=== PATIENT | female | born 1955 | race Caucasian/White ===

== ENCOUNTER 2017-04-05 07:54 | Inpatient (IN) | payer BC ==
[2017-04-05] MEDS ORDERED: fentaNYL 25 MCG/HR Transdermal Patch TRDERM SCH (08:00)
[2017-04-05] MEDS ORDERED: Meropenem 500 MG SDV ONE (08:38)
[2017-04-05] MEDS: Dextrose 5%-Lactated Ringers 1,000 ML IV SCH ×2 (08:54→18:00)
[2017-04-05] MEDS ORDERED: ceFAZolin 2 GM in Premix Bag 1 BAG IV ONE (10:00)
[2017-04-05] MEDS ORDERED: Dexamethasone 4 MG/ML SDV ONE (10:27)
[2017-04-05] MEDS ORDERED: Ondansetron 4 MG/2 ML SDV ONE (10:27)
[2017-04-05] MEDS ORDERED: fentaNYL 250 MCG/5 ML SDV ONE (10:27)
[2017-04-05] MEDS ORDERED: Rocuronium 50 MG/5 ML Vial ONE (10:27)
[2017-04-05] MEDS ORDERED: Neostigmine Methylsulfate 1 MG/ML 5 ML Syringe ONE (10:27)
[2017-04-05] MEDS ORDERED: Propofol 200 MG/20 ML SDV ONE (10:27)
[2017-04-05] MEDS ORDERED: Succinylcholine/Normal Saline 200 MG/10 ML Syringe ONE (10:27)
[2017-04-05] MEDS ORDERED: Naloxone 0.4 MG/ML SDV IVPUSH PRN (13:23)
[2017-04-05] MEDS ORDERED: Morphine PF 150 MG/30 ML PCA Syringe IV PRN (13:23)
[2017-04-05] MEDS ORDERED: Linezolid 200 MG/100 ML Bag IV ONE (13:25)
[2017-04-05] MEDS ORDERED: Naloxone 0.4 MG/ML SDV IV PRN (13:29)
[2017-04-05] MEDS ORDERED: Ondansetron 4 MG/2 ML SDV IVPUSH PRN (16:20)
[2017-04-05] MEDS ORDERED: hydrOXYzine HCl 100 MG/2 ML SDV IM PRN (16:23)
[2017-04-05] MEDS ORDERED: hydrOXYzine HCl 25 MG Tab PO PRN (16:23)
[2017-04-05] MEDS ORDERED: Cyclobenzaprine 10 MG Tab PO PRN (16:24)
[2017-04-05] MEDS: ceFAZolin 2 GM in Sodium Chloride 0.9% 50 ML IV SCH (19:41)
[2017-04-05] MEDS: FENTANYL PATCH CHECK TOP SCH (21:23)
[2017-04-05] MEDS: sulfaSALAzine 500 MG Tab PO SCH (21:24)
[2017-04-06] MEDS ORDERED: Lactated Ringers 500 ML IV SCH ×2 (02:30→06:15)
[2017-04-06] MEDS: Dextrose 5%-Lactated Ringers 1,000 ML IV SCH ×4 (02:38→19:14)
[2017-04-06] MEDS: ceFAZolin 2 GM in Sodium Chloride 0.9% 50 ML IV SCH ×2 (04:18→12:00)
[2017-04-06] MEDS ORDERED: Scopolamine 1.5 MG Transdermal Patch TRDERM PRN (07:22)
[2017-04-06] MEDS ORDERED: Metoclopramide 10 MG/2 ML SDV IVPUSH ONE (08:07)
[2017-04-06] MEDS: Docusate Sodium 100 MG Cap PO SCH ×2 (10:48→21:01)
[2017-04-06] MEDS: Hydroxychloroquine 200 MG Tab PO SCH ×2 (10:48→21:02)
[2017-04-06] MEDS: sulfaSALAzine 500 MG Tab PO SCH ×2 (10:49→21:02)
[2017-04-06] MEDS: Folic Acid 1 MG Tab PO SCH (10:49)
[2017-04-06] MEDS: FENTANYL PATCH CHECK TOP SCH ×2 (11:33→21:02)
[2017-04-06] MEDS: Metoclopramide 10 MG/2 ML SDV IVPUSH SCH ×2 (14:50→21:01)
[2017-04-07] MEDS: Metoclopramide 10 MG/2 ML SDV IVPUSH SCH (02:17)
[2017-04-07] MEDS: Dextrose 5%-Lactated Ringers 1,000 ML IV SCH (04:17)
[2017-04-07] MEDS ORDERED: Acetaminophen/oxyCODONE 325-5 MG Tab PO PRN (08:03)
[2017-04-07] MEDS ORDERED: Metoclopramide 10 MG/2 ML SDV IVPUSH PRN (08:04)
[2017-04-07] MEDS: Folic Acid 1 MG Tab PO SCH (08:30)
[2017-04-07] MEDS: Docusate Sodium 100 MG Cap PO SCH ×2 (08:30→21:11)
[2017-04-07] MEDS: FENTANYL PATCH CHECK TOP SCH ×2 (08:31→21:12)
[2017-04-07] MEDS: sulfaSALAzine 500 MG Tab PO SCH ×2 (08:31→21:12)
[2017-04-07] MEDS: Hydroxychloroquine 200 MG Tab PO SCH ×2 (08:31→21:12)
--- NOTE | 2017-04-07 09:23 | PN ---
DATE OF SERVICE: 04/07/2017 SUBJECTIVE: Bianca is postop day #2. Her nausea has improved. Temp max was 100.8. Pain is controlled. REVIEW OF SYSTEMS: Remainder of review of systems negative for any pertinent positives and negatives. OBJECTIVE: GENERAL: Bianca Arroyo is a pleasant 61-year-old female. VITAL SIGNS: TPR 100.2, 75, 16, and blood pressure 131/63. HEENT: Negative. NECK: Supple. HEART: Regular rate and rhythm. LUNGS: Clear. ABDOMEN: Dressings dry and intact. Abdominal binder is on. EXTREMITIES: Without peripheral edema. ASSESSMENT: Open repair of recurrent incarcerated incisional hernia with mesh for recurrent incarcerated incisional hernia. PLAN: Clear liquid diet. Dressing off. May shower. Discontinue Alaniz catheter. Continue pressure dressing, rolled up Kerlix or rolled up washcloth over hernia site for 8 weeks. Discontinue [employer] and continuous pulse ox. Percocet 5/325 mg 1 to 2 every 4 hours p.r.n. pain and Reglan 10 mg q.6 hours, changed from scheduled to p.r.n. Good pulmonary toilet encouraged. We will evaluate p.r.n. or in a.m. Ketty Allison PA-C /[id number]
[2017-04-07] MEDS: Magnesium Sulfate/Water 2 GM in Premix Bag 1 BAG IV SCH ×2 (15:50→21:09)
[2017-04-07] MEDS ORDERED: Acetaminophen 325 MG Tab PO PRN (22:23)
[2017-04-08 07:32] VITALS: BP 151/80
--- NOTE | 2017-04-08 08:44 | PN ---
DATE OF SERVICE: 04/06/2017 The patient has been afebrile with stable vital signs. Pain control appears fairly good. Urine output has been on the low side, and it seems she came into the case fairly dry. We will continue the IV at high rate today and give her one additional bolus this morning. We will leave the Alaniz catheter in for today to monitor her urine output, and otherwise begin a full liquid diet, along with some Colace, and restart her usual oral medications. Franki Manzo MD /[id number]
--- NOTE | 2017-04-09 04:08 | DISCH ---
ADMISSION DIAGNOSES: Incarcerated incisional hernia and hypertension. DISCHARGE DIAGNOSIS: Open repair of recurrent incarcerated incisional hernia with mesh for recurrent incarcerated incisional hernia. Date of surgery 04/05/2017. HISTORY: Bianca Arroyo is a pleasant 61-year-old female with recurrent incarcerated incisional hernia. After preoperative evaluation and discussion of possible risks and possible complications, she wished to proceed with surgical procedure. HOSPITAL COURSE: Bianca had her surgery on 04/05/2017. She had no operative complications. On postop day #1, she was started on a clear liquid diet. Her Alaniz catheter remained in to monitor urine output. She was given some bowel stimulation. On postop day #2, her Alaniz catheter was discontinued. She was started on oral pain medication and she was able to be discharged on 04/08/2017. PHYSICAL EXAMINATION: GENERAL: Bianca Arroyo is a 61-year-old female. VITAL SIGNS: Height is 5 feet 4.9 inches. Weight is 194 pounds. TPR is 98.5, 73, 18, and blood pressure 151/80. She did have a temp max last evening of 101.9, but after using her incentive spirometer and Tylenol, she remained afebrile. HEENT: Negative. NECK: Supple. HEART: Regular rate and rhythm. LUNGS: Clear. ABDOMEN: Dressings dry and intact. Abdominal binder is on with a pressure dressing over right side of her hernia. EXTREMITIES: Without peripheral edema. DISPOSITION: Discharged to home. CONDITION: Stable and improving. FOLLOWUP APPOINTMENT: With Franki Manzo MD, on 04/14/2017 at 08:00 a.m. DISCHARGE MEDICATIONS: New prescriptions: 1. Percocet 5/325 mg 1 to 2 every 4 hours p.r.n. pain #50. 2. Colace 100 mg oral twice daily. She is to resume her home medications of Zyrtec 10 mg oral daily, hydroxychloroquine sulfate 200 mg oral twice daily, methotrexate 15 mg oral weekly, multivitamin 1 tablet daily, and sulfasalazine a 1000 mg oral twice daily. DIET AFTER DISCHARGE: Usual diet as tolerated. Drink 8 to 10 glasses a day. ACTIVITY: As tolerated. No lifting more than 10 pounds for 6 weeks. Use incentive spirometer 10 times every hour while awake for 2 weeks. DISCHARGE INSTRUCTIONS: Driving after discharge, do not drive while on pain medication. Shower/bathing, may shower. Keep site clean and dry. Wear abdominal binder with pressure dressing, a rolled up washcloth or Kerlix over the hernia site with abdominal binder over it to keep pressure on the hernia site. Use incentive spirometer 10 times every hour while awake for 2 weeks. Notify provider if any fever, nausea, or vomiting.
--- NOTE | 2017-04-13 08:35 | OR ---
DATE OF PROCEDURE: 04/05/2017 PREOPERATIVE DIAGNOSIS: Recurrent incisional hernia. POSTOPERATIVE DIAGNOSIS: Recurrent incarcerated incisional hernia. OPERATIVE PROCEDURE: Open repair of recurrent incarcerated incisional hernia with mesh ([id number]). ANESTHESIA: General. MILK DRIER: Ketty Allison PA-C. INDICATIONS FOR PROCEDURE: A 61-year-old presenting with a recurrent incisional hernia in the suprapubic area. The plan is to proceed with repair of this using a mesh technique. The potential risks including bleeding, infection, injury to underlying viscera, problems with mesh becoming infected or the hernia recurring once again were all reviewed, and the patient wishes to proceed. DETAILS OF PROCEDURE: The patient was taken to the operating room and placed in the supine position. After general endotracheal anesthesia was induced, a Alaniz catheter was inserted and the abdomen prepped and draped. The lower aspect of the previous lower midline incision was then reused and carried down through the skin and subcutaneous tissue. The area of the herniation was noted to have occurred as result of the mesh on the right side of the pelvis coming loose. As one entered that cavity, there was some fluid present. This was a serous fluid, was not grossly infected, but cultures were obtained to be certain of lack of any infection. There was a loop of small bowel caught on the anterior aspect of the still intact mesh. This was dissected free without any insignificant serosal disturbance and returned back into the peritoneal cavity. The hernia sac was then dissected free in all areas to help with subsequent fixation of the mesh. The present mesh was then mobilized upward, and the dissection then continued down toward the right side of the pelvis, removing some small-bowel adhesions from that area. The mesh was then replaced initially to the pubic bone with multiple titanium tacking screws and then also multiple 0 Prolene stitches, which were taken from the mesh through the pubic bone itself to maximize chances of this remaining intact. Laterally, several stab wounds have been made where some sutures had been placed into the mesh laterally, and the mesh was then pulled up to that area as the sutures were drawn up with a suture passer. This appeared to be satisfactorily occlude all areas laterally and provided good coverage away from the area of herniation. The underlying shelf of that portion of the mesh was also then reinforced with titanium tacking screws to the abdominal wall. At this point, the remaining hernia sac was removed and the abdomen irrigated with a meropenem-containing saline solution. Zyvox also added to the antibiotic mix. The midline fascia was approximated overlying this with each of the bites including a bite of the underlying mesh as well, to help fix it into the abdominal wall. The subcutaneous tissue was approximated with 2-0 Vicryl stitch and the skin then with michael. Pressure dressing was applied. The patient was taken to the recovery room in satisfactory condition. There were no evident complications. Physician assistant research scientist, Ketty Allison, played an essential role in assisting in this case, helping to position the patient, retract structures as needed, as well as suturing and cutting sutures when indicated. Her presence improved the patient's safety and decreased the operative time. Franki Manzo MD /[id number]
== END 2017-04-08 09:11 | disposition home or self-care (01) | DRG 227 ==
LOC: JP.SDS 07:54 → JP.SDSSCHI 07:54 → EDSTATUS 10:00 → JP.2SS 14:50
PROVIDERS: ADMIT Surgery; ATTEND Surgery
PROC: 0WUF0JZ Supplement Abdominal Wall with Synthetic Substitute, Open Approach (ICD-10-PCS; principal; 2017-04-05)
DX: K43.2 Incisional hernia without obstruction or gangrene (principal); I10 Essential (primary) hypertension; Z79.899 Other long term (current) drug therapy; Z88.8 Allergy status to other drugs, medicaments and biological substances; M06.9 Rheumatoid arthritis, unspecified; F17.200 Nicotine dependence, unspecified, uncomplicated; Z85.3 Personal history of malignant neoplasm of breast
CPT/HCPCS: 36415; 80053; 83735; 84100; 87070; 87075; 87205; 88302; 94762; A9270-GY; J0690; J1100; J2020; J2185; J2270; J2405; J2704; J2765; J3010; J3475; J7042; J7050

== ENCOUNTER 2019-05-18 16:11 | Inpatient (IN) | payer MEDICARE, OTHER ==
--- NOTE | 2019-05-18 16:53 | EDM.PDOC ---
<Fox Stroud - Last Filed: 05/19/19 09:21> ED HPI GENERAL MEDICAL PROBLEM - General Chief Complaint: Abdominal Pain Stated Complaint: STOMACH PAIN, HERNIA PAIN Time Seen by Provider: 05/18/19 16:53 - Related Data Allergies Allergy/AdvReac Type Severity Reaction Status Date / Time hydromorphone HCl AdvReac Nausea and Verified 05/18/19 16:32 [From Dilaudid] Vomiting Home Meds: Home Meds Hydroxychloroquine Sulfate 200 mg PO BID 03/08/15 [History] Multivitamin [Multiple Vitamins] 1 tab PO DAILY 03/08/15 [History] sulfaSALAzine [Sulfasalazine] 1,000 mg PO BID 03/08/15 [History] Methotrexate 15 mg PO WEEKLY 10/02/16 [History] Omeprazole 1 tab PO DAILY 05/18/19 [History] Course - Vital Signs Last Recorded V/S: Last Vital Signs Temp 36.6 C 05/19/19 16:53 Pulse 81 05/19/19 16:53 Resp 20 05/19/19 16:53 BP 148/56 H 05/19/19 16:53 Pulse Ox 100 05/19/19 16:53 - Orders/Labs/Meds Orders: Medication Orders Hydroxyzine HCl (Vistaril) 100 mg IM Q4H PRN PRN Reason: Pain Last Admin: 05/19/19 18:13 Dose: 100 mg Meropenem 500 mg/ Sodium (Chloride) 50 mls @ 100 mls/hr IV Q6H NEO Last Admin: 05/19/19 16:31 Dose: 100 mls/hr Dextrose/Lactated Ringer's (Dextrose 5%-Lactated Ringers) 1,000 mls @ 175 mls/ hr IV ASDIRECTED NEO Morphine Sulfate (Morphine Rectification Printer 150 Mg In 30 Ml) 0 mg IV ASDIRECTED PRN; Protocol PRN Reason: Pain Last Admin: 05/19/19 16:30 Dose: 150 mg Naloxone HCl (Narcan) 0.1 mg IV ASDIRECTED PRN PRN Reason: decreased respiratory rate Ondansetron HCl (Zofran) 4 mg IV Q4H PRN PRN Reason: Nausea/Vomiting Pantoprazole Sodium (Protonix Iv) 40 mg IV BEDTIME [facility] Labs: Laboratory Tests 05/18/19 05/18/19 05/18/19 Range/Units 16:52 17:13 17:13 WBC 9.6 (4.5-11.0) K/uL RBC 3.85 (3.30-5.50) M/uL Hgb 12.9 (12.0-15.0) g/dL Hct 38.2 (36.0-48.0) % MCV 99 H (80-98) fL MCH 34 H (27-31) pg MCHC 34 (32-36) % Plt Count 231 (150-400) K/uL Neut % (Auto) 79 H (36-66) % Lymph % (Auto) 12 L (24-44) % Sunflower % (Auto) 6 (2-6) % Eos % (Auto) 2 (2-4) % Baso % (Auto) 0 (0-1) % Sodium 138 L (140-148) mmol/L Potassium 3.7 (3.6-5.2) mmol/L Chloride 100 (100-108) mmol/L Carbon Dioxide 28 (21-32) mmol/L Anion Gap 13.7 (5.0-14.0) mmol/L BUN 13 (7-18) mg/dL Creatinine 0.6 (0.6-1.0) mg/dL Est Cr Clr Drug Dosing 84.11 mL/min Estimated GFR (MDRD) > 60 (>60) Glucose 123 H (74-106) mg/dL Calcium 9.5 D (8.5-10.1) mg/dL Total Bilirubin 0.5 (0.2-1.0) mg/dL AST 37 D (15-37) U/L ALT 39 (12-78) U/L Alkaline Phosphatase 56 (46-116) U/L C-Reactive Protein 2.41 H (0.0-0.3) mg/dL Total Protein 7.9 (6.4-8.2) g/dL Albumin 3.5 (3.4-5.0) g/dL Globulin 4.4 H (2.3-3.5) g/dL Albumin/Globulin Ratio 0.8 L (1.2-2.2) Lipase 60 L (73-393) U/L Urine Color (YELLOW) Urine Appearance (CLEAR) Urine pH (5.0-8.0) Ur Specific Walton (1.008-1.030) Urine Protein (NEGATIVE) mg/dL Urine Glucose (UA) (NEGATIVE) mg/dL Urine Ketones (NEGATIVE) mg/dL Urine Occult Blood (NEGATIVE) Urine Nitrite (NEGATIVE) Urine Bilirubin (NEGATIVE) Urine Urobilinogen (0.2-1.0) EU/dL Ur Leukocyte Esterase (NEGATIVE) Urine RBC (0-5) Urine WBC (0-5) Ur Epithelial Cells Amorphous Sediment Urine Bacteria Urine Mucus 05/18/19 Range/Units 18:22 WBC (4.5-11.0) K/uL RBC (3.30-5.50) M/uL Hgb (12.0-15.0) g/dL Hct (36.0-48.0) % MCV (80-98) fL MCH (27-31) pg MCHC (32-36) % Plt Count (150-400) K/uL Neut % (Auto) (36-66) % Lymph % (Auto) (24-44) % Sunflower % (Auto) (2-6) % Eos % (Auto) (2-4) % Baso % (Auto) (0-1) % Sodium (140-148) mmol/L Potassium (3.6-5.2) mmol/L Chloride (100-108) mmol/L Carbon Dioxide (21-32) mmol/L Anion Gap (5.0-14.0) mmol/L BUN (7-18) mg/dL Creatinine (0.6-1.0) mg/dL Est Cr Clr Drug Dosing mL/min Estimated GFR (MDRD) (>60) Glucose (74-106) mg/dL Calcium (8.5-10.1) mg/dL Total Bilirubin (0.2-1.0) mg/dL AST (15-37) U/L ALT (12-78) U/L Alkaline Phosphatase (46-116) U/L C-Reactive Protein (0.0-0.3) mg/dL Total Protein (6.4-8.2) g/dL Albumin (3.4-5.0) g/dL Globulin (2.3-3.5) g/dL Albumin/Globulin Ratio (1.2-2.2) Lipase (73-393) U/L Urine Color Yellow (YELLOW) Urine Appearance Clear (CLEAR) Urine pH 6.5 (5.0-8.0) Ur Specific [place] 1.010 (1.008-1.030) Urine Protein Negative (NEGATIVE) mg/dL Urine Glucose (UA) Negative (NEGATIVE) mg/dL Urine Ketones Negative (NEGATIVE) mg/dL Urine Occult Blood Negative (NEGATIVE) Urine Nitrite Negative (NEGATIVE) Urine Bilirubin Negative (NEGATIVE) Urine Urobilinogen 0.2 (0.2-1.0) EU/dL Ur Leukocyte Esterase Negative (NEGATIVE) Urine RBC Not seen (0-5) Urine WBC Not seen (0-5) Ur Epithelial Cells Few Amorphous Sediment Not seen Urine Bacteria Not seen Urine Mucus Not seen Meds: Medications Generic Name Dose Route Start Last Admin Trade Name Freq PRN Reason Stop Dose Admin Hydroxyzine HCl 100 mg 05/19/19 16:21 05/19/19 18:13 Vistaril IM 100 mg Q4H PRN Administration Pain Meropenem 500 mg/ Sodium 50 mls @ 100 mls/hr 05/19/19 17:00 05/19/19 16:31 Chloride IV 100 mls/hr Q6H NEO Administration Dextrose/Lactated Ringer's 1,000 mls @ 175 mls/hr 05/19/19 16:30 Dextrose 5%-Lactated Ringers IV ASDIRECTED NEO Morphine Sulfate 0 mg 05/19/19 07:12 05/19/19 16:30 Morphine Rectification Printer 150 Mg In 30 Ml IV 150 mg ASDIRECTED PRN Administration Pain Protocol Naloxone HCl 0.1 mg 05/19/19 07:12 Narcan IV ASDIRECTED PRN decreased respiratory rate Ondansetron HCl 4 mg 05/18/19 20:34 Zofran IV Q4H PRN Nausea/Vomiting Pantoprazole Sodium 40 mg 05/19/19 21:00 Protonix Iv IV BEDTIME NEO Discontinued Medications Generic Name Dose Route Start Last Admin Trade Name Freq PRN Reason Stop Dose Admin Albuterol 2.5 mg 05/18/19 20:34 Proventil Neb Soln NEB Q4H PRN Shortness Of Breath/wheezing Albuterol/Ipratropium 3 ml 05/18/19 20:34 Duoneb 3.0-0.5 Mg/3 Ml NEB QID PRN Shortness Of Breath/wheezing Ropivacaine 45 ml/ 0 ml 05/19/19 12:00 05/19/19 11:38 Dexamethasone 8 mg/ NERVRT 80 syringe Epinephrine HCl 0.4 mg/ Sodium ASDIRECTED NEO Administration Chloride 32.6 ml Dexamethasone Confirm 05/19/19 08:19 Dexamethasone Administered 05/19/19 08:20 Dose 4 mg .ROUTE .STK-MED ONE Fentanyl Confirm 05/19/19 09:11 Sublimaze Administered 05/19/19 09:12 Dose 250 mcg .ROUTE .STK-MED ONE Fentanyl 50 mcg 05/19/19 15:19 05/19/19 15:23 Sublimaze IVPUSH 05/19/19 15:20 50 mcg ONETIME ONE Administration Glycopyrrolate Confirm 05/19/19 08:19 Robinul Administered 05/19/19 08:20 Dose 1 mg .ROUTE .STK-MED ONE Hydromorphone HCl 0.5 mg 05/18/19 17:02 05/18/19 19:42 Dilaudid IVPUSH 05/18/19 17:03 Not Given ONETIME ONE Hydroxyzine HCl 100 mg 05/19/19 14:36 05/19/19 15:14 Vistaril IM 05/19/19 14:37 100 mg ONETIME ONE Administration Sodium Chloride 1,000 mls @ 999 mls/hr 05/18/19 17:00 05/18/19 17:22 Normal Saline IV 999 mls/hr ASDIRECTED NEO Administration Sodium Chloride 1,000 mls @ 999 mls/hr 05/18/19 17:45 05/18/19 18:05 Normal Saline IV 999 mls/hr ASDIRECTED NEO Administration Sodium Chloride 100 mls @ 3 mls/sec 05/18/19 17:45 05/18/19 17:59 Normal Saline IV 3.5 mls/sec ASDIRECTED NEO Administration Lactated Ringer's 1,000 mls @ 125 mls/hr 05/18/19 20:34 05/19/19 05:38 Ringers, Lactated IV 125 mls/hr ASDIRECTED NEO Administration Potassium Chloride 20 meq/ 112 mls @ 56 mls/hr 05/19/19 09:00 05/19/19 09:49 Lidocaine HCl 2 ml/ Sodium IV 05/19/19 10:59 56 mls/hr Chloride ONETIME ONE Administration Cefoxitin Sodium 2 gm/ Sodium 50 mls @ 100 mls/hr 05/19/19 12:00 05/19/19 16: 32 Chloride IV 05/19/19 12:29 Not Given ONCALL ONE Ketamine HCl 50 mg/ Sodium 50 mls @ 17.1 mls/hr 05/19/19 12:00 Chloride IV ASDIRECTED NEO 5 MCG/KG/MIN Linezolid Confirm 05/19/19 11:37 Zyvox Administered 05/19/19 11:38 Dose 300 mls @ as directed .ROUTE .STK-MED ONE Linezolid Confirm 05/19/19 13:31 Zyvox Administered 05/19/19 13:32 Dose 300 mls @ as directed .ROUTE .STK-MED ONE Iopamidol 132 ml 05/18/19 17:45 05/18/19 17:58 Isovue-300 (61%) IV 132 ml . DIRECTED NEO Administration Ketamine HCl 28 mg 05/19/19 12:00 Ketalar IV ASDIRECTED NEO Lidocaine HCl 10 ml 05/18/19 20:15 05/18/19 20:28 Xylocaine 2% Jelly MUCMEM 05/18/19 20:16 10 ml ONETIME ONE Administration Linezolid 1,200 mg 05/19/19 11:49 05/19/19 11:49 Zyvox IRR 05/19/19 11:50 1,200 mg .STK-MED ONE Administration Lorazepam 1 mg 05/18/19 20:34 05/19/19 00:32 Ativan IV 1 mg Q6H PRN Administration Nausea/Vomiting Meropenem Confirm 05/19/19 11:37 05/19/19 11:48 Merrem Administered 05/19/19 11:38 500 mg Dose Administration 500 mg .ROUTE .STK-MED ONE Meropenem Confirm 05/19/19 13:45 Merrem Administered 05/19/19 13:46 Dose 500 mg .ROUTE .STK-MED ONE Morphine Sulfate 2 mg 05/18/19 17:04 05/18/19 17:21 Morphine IVPUSH 05/18/19 17:05 2 mg ONETIME ONE Administration Morphine Sulfate 2 mg 05/18/19 20:34 Morphine IVPUSH Q2H PRN Pain (severe 7-10) Neostigmine Methylsulfate Confirm 05/19/19 08:19 Neostigmine Administered 05/19/19 08:20 Dose 5 mg .ROUTE .STK-MED ONE Ondansetron HCl 4 mg 05/18/19 17:01 05/18/19 17:21 Zofran IVPUSH 05/18/19 17:02 4 mg ONETIME ONE Administration Ondansetron HCl Confirm 05/19/19 08:19 Zofran Administered 05/19/19 08:20 Dose 4 mg .ROUTE .STK-MED ONE Pantoprazole Sodium 40 mg 05/18/19 20:34 05/18/19 21:09 Protonix Iv IV 40 mg DAILY NEO Administration Phenol 1 ml 05/19/19 00:25 Phenaseptic Liquid MUCMEM Q2H PRN Sore Throat Propofol Confirm 05/19/19 08:19 Diprivan 20 Ml Administered 05/19/19 08:20 Dose 200 mg .ROUTE .STK-MED ONE Rocuronium Rison Confirm 05/19/19 08:19 Zemuron Administered 05/19/19 08:20 Dose 50 mg .ROUTE .STK-MED ONE Sodium Chloride 10 ml 05/18/19 17:45 05/18/19 17:58 Saline Flush FLUSH 05/18/19 17:46 10 ml ONETIME ONE Administration Succinylcholine Chloride Confirm 05/19/19 08:19 Quelicin Administered 05/19/19 08:20 Dose 200 mg .ROUTE .STK-MED ONE - Re-Assessments/Exams Free Text/Narrative Re-Assessment/Exam: Dr. Glass with initial evaluation and physical, care turned over to myself pending CT results. Patient remained stable. CT scan showed a small bowel obstruction with possible small bowel tumor. This was discussed with Dr. Manzo, and he recommended admitting to the hospitalist service with an NG tube, pain control and fluids and he will have a surgical assessment on her in the morning. Departure - Departure Time of Disposition: 20:36 Disposition: Home, Self-Care 01 Clinical Impression: Small bowel obstruction - Discharge Information <Polly Glass - Last Filed: 05/19/19 19:10> ED HPI GENERAL MEDICAL PROBLEM - General Source of Information: Reports: Patient History Limitations: Reports: No Limitations - History of Present Illness INITIAL COMMENTS - FREE TEXT/NARRATIVE: pt arrived with pain in the epigastric area and in the rt lower abdoman. She has had some chronic pain but in the last 2-3 days she has been nauseated and she has vomited several time. The last 2 days she is keeping water down but not solid foods. Her stools are quite liquid. Onset: Gradual, Other ( last 2 days. She had hernia surgery about 2 years ago and she has had loose stools since that time. ) Duration: Day(s): Location: Reports: Abdomen, Other (pt is hjaving low back pain. ) Associated Symptoms: Reports: Loss of Appetite, Nausea/Vomiting Past Medical History HEENT History: Reports: Impaired Vision, Sinusitis Other HEENT History: wears glasses Cardiovascular History: Reports: Hypertension Gastrointestinal History: Reports: None Genitourinary History: Reports: None ANESTHESIOLOGIST AND CRITICAL CARE History: Reports: Musculoskeletal History: Reports: RA Other Musculoskeletal History: rheumatoid arthritis Endocrine/Metabolic History: Reports: Obesity/BMI 30+ Oncologic (Cancer) History: Reports: Breast Dermatologic History: Reports: Psoriasis - Infectious Disease History Infectious Disease History: Reports: Chicken Pox, Measles, Mumps, Shingles - Past Surgical History HEENT Surgical History: Reports: Tonsillectomy Cardiovascular Surgical History: Reports: None GI Surgical History: Reports: Cholecystectomy, Colonoscopy, EGD, Hernia, Abdominal Female Surgical History: Reports: Section, Hysterectomy, Mastectomy , Salpingo-Oophorectomy Endocrine Surgical History: Reports: None Musculoskeletal Surgical History: Reports: None Oncologic Surgical History: Reports: Mastectomy Other Oncologic Surgeries/Procedures: right mastectomy Dermatological Surgical History: Reports: None Social & Family History - Family History Family Medical History: Noncontributory - Tobacco Use Smoking Status *Q: Current Every Day Smoker Years of Tobacco use: 45 Packs/Tins Daily: 0.2 - Caffeine Use Caffeine Use: Reports: Coffee ED ROS GENERAL - Review of Systems Review Of Systems: See Below Constitutional: Reports: Decreased Appetite HEENT: Reports: No Symptoms Respiratory: Reports: No Symptoms Cardiovascular: Reports: No Symptoms Endocrine: Reports: No Symptoms GI/Abdominal: Reports: Abdominal Pain, Diarrhea, Decreased Appetite, Nausea, Vomiting : Reports: No Symptoms Musculoskeletal: Reports: No Symptoms Skin: Reports: No Symptoms ED EXAM, GI/ABD - Physical Exam Exam: See Below Text/Narrative:: pt arrived with pain in the epigastric area and in the rt lower abdoman. Exam Limited By: No Limitations General Appearance: Alert, Anxious, Moderate Distress, Other (pt has been vomiting at home. pupils are equal and reactive. ) Ears: Normal TMs Nose: Normal Inspection Throat/Mouth: Normal Inspection Head: Atraumatic Neck: Normal Inspection Respiratory/Chest: No Respiratory Distress Cardiovascular: Regular Rate, Rhythm GI/Abdominal Exam: Other (pt is tender in the epigastric area and in the rt lower abdoman,. She has had a graft taken from her abdoman for breast construction She has been nauseated and she has been vomiting. She has passed some loose stools. ) (Female) Exam: Deferred Rectal (Female) Exam: Deferred Back Exam: Normal Inspection Extremities: Normal Inspection Neurological: Alert, Oriented, Normal Cognition Psychiatric: Normal Affect Course - Orders/Labs/Meds Labs: Laboratory Tests 05/18/19 05/18/19 05/18/19 Range/Units 16:52 17:13 17:13 WBC 9.6 (4.5-11.0) K/uL RBC 3.85 (3.30-5.50) M/uL Hgb 12.9 (12.0-15.0) g/dL Hct 38.2 (36.0-48.0) % MCV 99 H (80-98) fL MCH 34 H (27-31) pg MCHC 34 (32-36) % Plt Count 231 (150-400) K/uL Neut % (Auto) 79 H (36-66) % Lymph % (Auto) 12 L (24-44) % Sunflower % (Auto) 6 (2-6) % Eos % (Auto) 2 (2-4) % Baso % (Auto) 0 (0-1) % Sodium 138 L (140-148) mmol/L Potassium 3.7 (3.6-5.2) mmol/L Chloride 100 (100-108) mmol/L Carbon Dioxide 28 (21-32) mmol/L Anion Gap 13.7 (5.0-14.0) mmol/L BUN 13 (7-18) mg/dL Creatinine 0.6 (0.6-1.0) mg/dL Est Cr Clr Drug Dosing 84.11 mL/min Estimated GFR (MDRD) > 60 (>60) Glucose 123 H (74-106) mg/dL Calcium 9.5 D (8.5-10.1) mg/dL Total Bilirubin 0.5 (0.2-1.0) mg/dL AST 37 D (15-37) U/L ALT 39 (12-78) U/L Alkaline Phosphatase 56 (46-116) U/L C-Reactive Protein 2.41 H (0.0-0.3) mg/dL Total Protein 7.9 (6.4-8.2) g/dL Albumin 3.5 (3.4-5.0) g/dL Globulin 4.4 H (2.3-3.5) g/dL Albumin/Globulin Ratio 0.8 L (1.2-2.2) Lipase 60 L (73-393) U/L Urine Color (YELLOW) Urine Appearance (CLEAR) Urine pH (5.0-8.0) Ur Specific [place] (1.008-1.030) Urine Protein (NEGATIVE) mg/dL Urine Glucose (UA) (NEGATIVE) mg/dL Urine Ketones (NEGATIVE) mg/dL Urine Occult Blood (NEGATIVE) Urine Nitrite (NEGATIVE) Urine Bilirubin (NEGATIVE) Urine Urobilinogen (0.2-1.0) EU/dL Ur Leukocyte Esterase (NEGATIVE) Urine RBC (0-5) Urine WBC (0-5) Ur Epithelial Cells Amorphous Sediment Urine Bacteria Urine Mucus 05/18/ Range/Units 18:22 WBC (4.5-11.0) K/uL RBC (3.30-5.50) M/uL Hgb (12.0-15.0) g/dL Hct (36.0-48.0) % MCV (80-98) fL MCH (27-31) pg MCHC (32-36) % Plt Count (150-400) K/uL Neut % (Auto) (36-66) % Lymph % (Auto) (24-44) % Sunflower % (Auto) (2-6) % Eos % (Auto) (2-4) % Baso % (Auto) (0-1) % Sodium (140-148) mmol/L Potassium (3.6-5.2) mmol/L Chloride (100-108) mmol/L Carbon Dioxide (21-32) mmol/L Anion Gap (5.0-14.0) mmol/L BUN (7-18) mg/dL Creatinine (0.6-1.0) mg/dL Est Cr Clr Drug Dosing mL/min Estimated GFR (MDRD) (>60) Glucose (74-106) mg/dL Calcium (8.5-10.1) mg/dL Total Bilirubin (0.2-1.0) mg/dL AST (15-37) U/L ALT (12-78) U/L Alkaline Phosphatase (46-116) U/L C-Reactive Protein (0.0-0.3) mg/dL Total Protein (6.4-8.2) g/dL Albumin (3.4-5.0) g/dL Globulin (2.3-3.5) g/dL Albumin/Globulin Ratio (1.2-2.2) Lipase (73-393) U/L Urine Color Yellow (YELLOW) Urine Appearance Clear (CLEAR) Urine pH 6.5 (5.0-8.0) Ur Specific [place] 1.010 (1.008-1.030) Urine Protein Negative (NEGATIVE) mg/dL Urine Glucose (UA) Negative (NEGATIVE) mg/dL Urine Ketones Negative (NEGATIVE) mg/dL Urine Occult Blood Negative (NEGATIVE) Urine Nitrite Negative (NEGATIVE) Urine Bilirubin Negative (NEGATIVE) Urine Urobilinogen 0.2 (0.2-1.0) EU/dL Ur Leukocyte Esterase Negative (NEGATIVE) Urine RBC Not seen (0-5) Urine WBC Not seen (0-5) Ur Epithelial Cells Few Amorphous Sediment Not seen Urine Bacteria Not seen Urine Mucus Not seen Meds: Medications Generic Name Dose Route Start Last Admin Trade Name Freq PRN Reason Stop Dose Admin Hydroxyzine HCl 100 mg 05/19/19 16:21 05/19/19 18:13 Vistaril IM 100 mg Q4H PRN Administration Pain Meropenem 500 mg/ Sodium 50 mls @ 100 mls/hr 05/19/19 17:00 05/19/19 16:31 Chloride IV 100 mls/hr Q6H NEO Administration Dextrose/Lactated Ringer's 1,000 mls @ 175 mls/hr 05/19/19 16:30 Dextrose 5%-Lactated Ringers IV ASDIRECTED NEO Morphine Sulfate 0 mg 05/19/19 07:12 05/19/19 16:30 Morphine Rectification Printer 150 Mg In 30 Ml IV 150 mg ASDIRECTED PRN Administration Pain Protocol Naloxone HCl 0.1 mg 05/19/19 07:12 Narcan IV ASDIRECTED PRN decreased respiratory rate Ondansetron HCl 4 mg 05/18/19 20:34 Zofran IV Q4H PRN Nausea/Vomiting Pantoprazole Sodium 40 mg 05/19/19 21:00 Protonix Iv IV BEDTIME NEO Discontinued Medications Generic Name Dose Route Start Last Admin Trade Name Freq PRN Reason Stop Dose Admin Albuterol 2.5 mg 05/18/19 20:34 Proventil Neb Soln NEB Q4H PRN Shortness Of Breath/wheezing Albuterol/Ipratropium 3 ml 05/18/19 20:34 Duoneb 3.0-0.5 Mg/3 Ml NEB QID PRN Shortness Of Breath/wheezing Ropivacaine 45 ml/ 0 ml 05/19/19 12:00 05/19/19 11:38 Dexamethasone 8 mg/ NERVRT 80 syringe Epinephrine HCl 0.4 mg/ Sodium ASDIRECTED NEO Administration Chloride 32.6 ml Dexamethasone Confirm 05/19/19 08:19 Dexamethasone Administered 05/19/19 08:20 Dose 4 mg .ROUTE .STK-MED ONE Fentanyl Confirm 05/19/19 09:11 Sublimaze Administered 05/19/19 09:12 Dose 250 mcg .ROUTE .STK-MED ONE Fentanyl 50 mcg 05/19/19 15:19 05/19/19 15:23 Sublimaze IVPUSH 05/19/19 15:20 50 mcg ONETIME ONE Administration Glycopyrrolate Confirm 05/19/19 08:19 Robinul Administered 05/19/19 08:20 Dose 1 mg .ROUTE .STK-MED ONE Hydromorphone HCl 0.5 mg 05/18/19 17:02 05/18/19 19:42 Dilaudid IVPUSH 05/18/19 17:03 Not Given ONETIME ONE Hydroxyzine HCl 100 mg 05/19/19 14:36 05/19/19 15:14 Vistaril IM 05/19/19 14:37 100 mg ONETIME ONE Administration Sodium Chloride 1,000 mls @ 999 mls/hr 05/18/19 17:00 05/18/19 17:22 Normal Saline IV 999 mls/hr ASDIRECTED NEO Administration Sodium Chloride 1,000 mls @ 999 mls/hr 05/18/19 17:45 05/18/19 18:05 Normal Saline IV 999 mls/hr ASDIRECTED NEO Administration Sodium Chloride 100 mls @ 3 mls/sec 05/18/19 17:45 05/18/19 17:59 Normal Saline IV 3.5 mls/sec ASDIRECTED NEO Administration Lactated Ringer's 1,000 mls @ 125 mls/hr 05/18/19 20:34 05/19/19 05:38 Ringers, Lactated IV 125 mls/hr ASDIRECTED NEO Administration Potassium Chloride 20 meq/ 112 mls @ 56 mls/hr 05/19/19 09:00 05/19/19 09:49 Lidocaine HCl 2 ml/ Sodium IV 05/19/19 10:59 56 mls/hr Chloride ONETIME ONE Administration Cefoxitin Sodium 2 gm/ Sodium 50 mls @ 100 mls/hr 05/19/19 12:00 05/19/19 16: 32 Chloride IV 05/19/19 12:29 Not Given ONCALL ONE Ketamine HCl 50 mg/ Sodium 50 mls @ 17.1 mls/hr 05/19/19 12:00 Chloride IV ASDIRECTED NEO 5 MCG/KG/MIN Linezolid Confirm 05/19/19 11:37 Zyvox Administered 05/19/19 11:38 Dose 300 mls @ as directed .ROUTE .STK-MED ONE Linezolid Confirm 05/19/19 13:31 Zyvox Administered 05/19/19 13:32 Dose 300 mls @ as directed .ROUTE .STK-MED ONE Iopamidol 132 ml 05/18/19 17:45 05/18/19 17:58 Isovue-300 (61%) IV 132 ml . DIRECTED NEO Administration Ketamine HCl 28 mg 05/19/19 12:00 Ketalar IV ASDIRECTED NEO Lidocaine HCl 10 ml 05/18/19 20:15 05/18/19 20:28 Xylocaine 2% Jelly MUCMEM 05/18/19 20:16 10 ml ONETIME ONE Administration Linezolid 1,200 mg 05/19/19 11:49 05/19/19 11:49 Zyvox IRR 05/19/19 11:50 1,200 mg .STK-MED ONE Administration Lorazepam 1 mg 05/18/19 20:34 05/19/19 00:32 Ativan IV 1 mg Q6H PRN Administration Nausea/Vomiting Meropenem Confirm 05/19/19 11:37 05/19/19 11:48 Merrem Administered 05/19/19 11:38 500 mg Dose Administration 500 mg .ROUTE .STK-MED ONE Meropenem Confirm 05/19/19 13:45 Merrem Administered 05/19/19 13:46 Dose 500 mg .ROUTE .STK-MED ONE Morphine Sulfate 2 mg 05/18/19 17:04 05/18/19 17:21 Morphine IVPUSH 05/18/19 17:05 2 mg ONETIME ONE Administration Morphine Sulfate 2 mg 05/18/19 20:34 Morphine IVPUSH Q2H PRN Pain (severe 7-10) Neostigmine Methylsulfate Confirm 05/19/19 08:19 Neostigmine Administered 05/19/19 08:20 Dose 5 mg .ROUTE .STK-MED ONE Ondansetron HCl 4 mg 05/18/19 17:01 05/18/19 17:21 Zofran IVPUSH 05/18/19 17:02 4 mg ONETIME ONE Administration Ondansetron HCl Confirm 05/19/19 08:19 Zofran Administered 05/19/19 08:20 Dose 4 mg .ROUTE .STK-MED ONE Pantoprazole Sodium 40 mg 05/18/19 20:34 05/18/19 21:09 Protonix Iv IV 40 mg DAILY NEO Administration Phenol 1 ml 05/19/19 00:25 Phenaseptic Liquid MUCMEM Q2H PRN Sore Throat Propofol Confirm 05/19/19 08:19 Diprivan 20 Ml Administered 05/19/19 08:20 Dose 200 mg .ROUTE .STK-MED ONE Rocuronium Rison Confirm 05/19/19 08:19 Zemuron Administered 05/19/19 08:20 Dose 50 mg .ROUTE .STK-MED ONE Sodium Chloride 10 ml 05/18/19 17:45 05/18/19 17:58 Saline Flush FLUSH 05/18/19 17:46 10 ml ONETIME ONE Administration Succinylcholine Chloride Confirm 05/19/19 08:19 Quelicin Administered 05/19/19 08:20 Dose 200 mg .ROUTE .STK-MED ONE
[2019-05-18] MEDS ORDERED: Sodium Chloride 0.9% 1,000 ML IV SCH ×2 (17:00→17:45)
[2019-05-18] MEDS ORDERED: Ondansetron 4 MG/2 ML SDV IVPUSH ONE (17:01)
[2019-05-18] MEDS ORDERED: HYDROmorphone 0.5 MG/0.5 ML Syringe IVPUSH ONE (17:02)
[2019-05-18] MEDS ORDERED: Morphine 2 MG/ML Syringe IVPUSH ONE (17:04)
[2019-05-18] MEDS ORDERED: Sodium Chloride 0.9% 10 ML Syringe FLUSH ONE (17:45)
[2019-05-18] MEDS ORDERED: Iopamidol 612 MG/ML 150 ML Bottle IV SCH (17:45)
[2019-05-18] MEDS ORDERED: Sodium Chloride 0.9% 100 ML IV SCH (17:45)
[2019-05-18] MEDS ORDERED: fentaNYL 100 MCG/2 ML SDV IM ONE (18:49)
--- NOTE | 2019-05-18 19:11 | CRLCT ---
Indication: Epigastric and right lower abdominal pain, history of hernia Technique: Contrast enhanced axial CT imaging through the abdomen and pelvis. Sagittal and coronal reconstructions are provided. 132 cc Isovue-300 contrast agent was administered intravenous. Comparison: CT abdomen pelvis with contrast 12/06/2017. Findings: There is a broad-based right lower quadrant ventral abdominal wall hernia containing some loops of small bowel. There is evidence of prior hernia repair. There are multiple distended loops of small bowel measuring up to 4.0 cm, highly concerning for obstruction. Transition point is seen at a 4.6 cm long segment demonstrating circumferential wall thickening up to 1.9 cm with shouldering, raising concern for underlying mass. This lies in the inferior aspect of the abdominal wall hernia. The distal small bowel is decompressed. There is no pneumatosis intestinalis. A small amount of free fluid is seen within the hernia sac. There is no free intraperitoneal air. The stomach and colon is unremarkable. A few prominent inguinal and pelvic lymph nodes bilaterally are not significantly changed since prior. There is no mesenteric lymphadenopathy. The included lung bases are clear. There is no significant abnormality of the liver, spleen, pancreas, or adrenal glands. There is normal enhancement of the portal venous system. The gallbladder is surgically absent. There is mild prominence of the common bile duct, likely secondary to cholecystectomy. There is normal renal parenchymal enhancement without suspicious lesions. A small renal cyst is noted on the left. There is no hydronephrosis. There is normal caliber of the abdominal aorta with scattered atherosclerotic disease. Multilevel degenerative changes are again seen in the lumbar spine. No suspicious osseous lesions are demonstrated. Impression: 1. Findings concerning for small bowel obstruction secondary to underlying small bowel mass. No pneumoperitoneum or intra-abdominal abscess. 2. Persistent right lower quadrant ventral abdominal wall hernia containing multiple small bowel loops, including the segment suspicious for mass. Findings were discussed with Dr. Stroud at 07:02pm Please note that all CT scans at this facility use dose modulation, iterative reconstruction, and/or weight-based dosing when appropriate to reduce radiation dose to as low as reasonably achievable. Dictated by Stephanie Hagan MD @ May 18 2019 7:09PM Signed by Dr. Stephanie Hagan @ May 18 2019 7:09PM
[2019-05-18] MEDS ORDERED: Lidocaine 2% Jelly 10 ML Urojet MUCMEM ONE (20:15)
--- NOTE | 2019-05-18 20:24 | PCM.HP.2 ---
H&P History of Present Illness - General Date of Service: 05/18/19 Admit Problem/Dx: Admission Diagnosis/Problem Admission Diagnosis/Problem Small bowel obstruction Source of Information: Patient, Family ( and close friend at bedside) History Limitations: Reports: No Limitations - History of Present Illness Initial Comments - Free Text/Narative: chief complaint: abdominal pain - small bowel bowel obstruction this is a 63 year old female presents to the ER for evaluation of abdominal for the past 3 years. reports on Wednesday had increased pain in right lower abdomen - radiates to the back. She reports has not been able to eat for the past two days , today could not even keep water down. having diarrhea stools. pain was so bad today caused her to sweat. Onset of Symptoms: Reports: Gradual Symptom Onset Date: 05/12/19 Duration of Symptoms: Reports: Day(s):, Getting Worse Location: Reports: Abdomen, Radiates to (low back) Quality: Reports: Same as Previous Episode Severity: Severe Improves with: Reports: None Worsens with: Reports: Eating, Movement Context: Reports: Other (hx of hernia repair x 2) Associated Symptoms: Reports: Loss of Appetite, Nausea/Vomiting - Related Data Allergies/Adverse Reactions: Allergies Allergy/AdvReac Type Severity Reaction Status Date / Time hydromorphone HCl AdvReac Nausea and Verified 05/18/19 16:32 [From Dilaudid] Vomiting Home Medications: Home Meds Hydroxychloroquine Sulfate 200 mg PO BID 03/08/15 [History] Multivitamin [Multiple Vitamins] 1 tab PO DAILY 03/08/15 [History] sulfaSALAzine [Sulfasalazine] 1,000 mg PO BID 03/08/15 [History] Methotrexate 15 mg PO WEEKLY 10/02/16 [History] Omeprazole 1 tab PO DAILY 05/18/19 [History] Past Medical History HEENT History: Reports: Impaired Vision, Sinusitis Other HEENT History: wears glasses Cardiovascular History: Reports: Hypertension Gastrointestinal History: Reports: None Genitourinary History: Reports: None 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: Musculoskeletal History: Reports: RA Other Musculoskeletal History: rheumatoid arthritis Endocrine/Metabolic History: Reports: Obesity/BMI 30+ Oncologic (Cancer) History: Reports: Breast Dermatologic History: Reports: Psoriasis - Infectious Disease History Infectious Disease History: Reports: Chicken Pox, Measles, Mumps, Shingles - Past Surgical History HEENT Surgical History: Reports: Tonsillectomy Cardiovascular Surgical History: Reports: None GI Surgical History: Reports: Cholecystectomy, Colonoscopy, EGD, Hernia, Abdominal Female Surgical History: Reports: Section, Hysterectomy, Mastectomy , Salpingo-Oophorectomy Endocrine Surgical History: Reports: None Musculoskeletal Surgical History: Reports: None Oncologic Surgical History: Reports: Mastectomy Other Oncologic Surgeries/Procedures: right mastectomy Dermatological Surgical History: Reports: None Social & Family History - Family History Family Medical History: Noncontributory - Tobacco Use Smoking Status *Q: Current Every Day Smoker Years of Tobacco use: 45 Packs/Tins Daily: 0.2 - Caffeine Use Caffeine Use: Reports: Coffee - Living Situation & Occupation Living situation: Reports: Occupation: Retired (lives with of 37 years in [place], [place]. She retired this year from her job of 37 years. has 3 children; 2 by and another Daughter they raised from the age of 5 years.) H&P Review of Systems - Review of Systems: Review Of Systems: See Below General: Reports: Chills, Weakness, Decreased Appetite HEENT: Reports: Glasses Pulmonary: Reports: No Symptoms Cardiovascular: Reports: No Symptoms Gastrointestinal: Reports: Abdominal Pain, Diarrhea, Decreased Appetite, Distension, Nausea, Vomiting Genitourinary: Reports: No Symptoms Musculoskeletal: Reports: Back Pain Skin: Reports: No Symptoms Psychiatric: Reports: No Symptoms Neurological: Reports: No Symptoms Hematologic/Lymphatic: Reports: No Symptoms Immunologic: Reports: No Symptoms Exam - Exam Exam: See Below - Vital Signs Vital Signs: Last Vital Signs Temp 36.4 C 05/18/19 16:39 Pulse 86 05/18/19 19:31 Resp 16 05/18/19 19:31 BP 193/95 H 05/18/19 19:31 Pulse Ox 96 05/18/19 19:31 Weight: 88 kg - Exam General: Alert, Oriented, Cooperative, Mild Distress HEENT: Conjunctiva Clear, EOMI, Hearing Intact, Glasses Neck: Supple, Trachea Midline Lungs: Clear to Auscultation, Normal Respiratory Effort Cardiovascular: Regular Rate, Regular Rhythm, Normal S1, Normal S2 GI/Abdominal Exam: Distended, Tender, Abnormal Bowel Sounds (Female) Exam: Deferred Rectal (Female) Exam: Deferred Back Exam: Normal Inspection, Full Range of Motion, Other (low back pain with palpation) Extremities: Normal Inspection, Normal Range of Motion, Non-Tender, No Pedal Edema, Normal Capillary Refill Skin: Warm, Dry, Intact Neurological: Strength Equal Bilateral, Normal Speech Neuro Extensive - Mental Status: Alert, Oriented x3, Normal Mood/Affect, Normal Cognition Neuro Extensive - Motor, Sensory, Reflexes: CN II-XII Intact, Normal Gait, Normal Reflexes Psychiatric: Alert, Normal Affect, Normal Mood - Patient Data Lab Results Last 24 hrs: Laboratory Results - last 24 hr 05/18/19 05/18/19 05/18/19 Range/Units 16:52 17:13 17:13 WBC 9.6 (4.5-11.0) K/uL RBC 3.85 (3.30-5.50) M/uL Hgb 12.9 (12.0-15.0) g/dL Hct 38.2 (36.0-48.0) % MCV 99 H (80-98) fL MCH 34 H (27-31) pg MCHC 34 (32-36) % Plt Count 231 (150-400) K/uL Neut % (Auto) 79 H (36-66) % Lymph % (Auto) 12 L (24-44) % Plumas % (Auto) 6 (2-6) % Eos % (Auto) 2 (2-4) % Baso % (Auto) 0 (0-1) % Sodium 138 L (140-148) mmol/L Potassium 3.7 (3.6-5.2) mmol/L Chloride 100 (100-108) mmol/L Carbon Dioxide 28 (21-32) mmol/L Anion Gap 13.7 (5.0-14.0) mmol/L BUN 13 (7-18) mg/dL Creatinine 0.6 (0.6-1.0) mg/dL Est Cr Clr Drug Dosing 84.11 mL/min Estimated GFR (MDRD) > 60 (>60) Glucose 123 H (74-106) mg/dL Calcium 9.5 D (8.5-10.1) mg/dL Total Bilirubin 0.5 (0.2-1.0) mg/dL AST 37 D (15-37) U/L ALT 39 (12-78) U/L Alkaline Phosphatase 56 (46-116) U/L C-Reactive Protein 2.41 H (0.0-0.3) mg/dL Total Protein 7.9 (6.4-8.2) g/dL Albumin 3.5 (3.4-5.0) g/dL Globulin 4.4 H (2.3-3.5) g/dL Albumin/Globulin Ratio 0.8 L (1.2-2.2) Lipase 60 L (73-393) U/L Urine Color (YELLOW) Urine Appearance (CLEAR) Urine pH (5.0-8.0) Ur Specific Thayer (1.008-1.030) Urine Protein (NEGATIVE) mg/dL Urine Glucose (UA) (NEGATIVE) mg/dL Urine Ketones (NEGATIVE) mg/dL Urine Occult Blood (NEGATIVE) Urine Nitrite (NEGATIVE) Urine Bilirubin (NEGATIVE) Urine Urobilinogen (0.2-1.0) EU/dL Ur Leukocyte Esterase (NEGATIVE) Urine RBC (0-5) Urine WBC (0-5) Ur Epithelial Cells Amorphous Sediment Urine Bacteria Urine Mucus 05/18/19 Range/Units 18:22 WBC (4.5-11.0) K/uL RBC (3.30-5.50) M/uL Hgb (12.0-15.0) g/dL Hct (36.0-48.0) % MCV (80-98) fL MCH (27-31) pg MCHC (32-36) % Plt Count (150-400) K/uL Neut % (Auto) (36-66) % Lymph % (Auto) (24-44) % Plumas % (Auto) (2-6) % Eos % (Auto) (2-4) % Baso % (Auto) (0-1) % Sodium (140-148) mmol/L Potassium (3.6-5.2) mmol/L Chloride (100-108) mmol/L Carbon Dioxide (21-32) mmol/L Anion Gap (5.0-14.0) mmol/L BUN (7-18) mg/dL Creatinine (0.6-1.0) mg/dL Est Cr Clr Drug Dosing mL/min Estimated GFR (MDRD) (>60) Glucose (74-106) mg/dL Calcium (8.5-10.1) mg/dL Total Bilirubin (0.2-1.0) mg/dL AST (15-37) U/L ALT (12-78) U/L Alkaline Phosphatase (46-116) U/L C-Reactive Protein (0.0-0.3) mg/dL Total Protein (6.4-8.2) g/dL Albumin (3.4-5.0) g/dL Globulin (2.3-3.5) g/dL Albumin/Globulin Ratio (1.2-2.2) Lipase (73-393) U/L Urine Color Yellow (YELLOW) Urine Appearance Clear (CLEAR) Urine pH 6.5 (5.0-8.0) Ur Specific Thayer 1.010 (1.008-1.030) Urine Protein Negative (NEGATIVE) mg/dL Urine Glucose (UA) Negative (NEGATIVE) mg/dL Urine Ketones Negative (NEGATIVE) mg/dL Urine Occult Blood Negative (NEGATIVE) Urine Nitrite Negative (NEGATIVE) Urine Bilirubin Negative (NEGATIVE) Urine Urobilinogen 0.2 (0.2-1.0) EU/dL Ur Leukocyte Esterase Negative (NEGATIVE) Urine RBC Not seen (0-5) Urine WBC Not seen (0-5) Ur Epithelial Cells Few Amorphous Sediment Not seen Urine Bacteria Not seen Urine Mucus Not seen Result Diagrams: 05/18/19 16:52 05/18/19 17:13 - Problem List (1) Small bowel obstruction SNOMED Code(s): 953695520 ICD Code: K56.609 - UNSP INTESTNL OBST, UNSP TO PARTIAL VERSUS COMPLETE OBST Status: Acute Priority: High Current Visit: Yes (2) Tobacco dependence SNOMED Code(s): 03293775 ICD Code: F17.200 - NICOTINE DEPENDENCE, UNSPECIFIED, UNCOMPLICATED Status : Acute Priority: Low Current Visit: Yes Problem List Initiated/Reviewed/Updated: Yes Orders Last 24hrs: Active Orders 24 hr Category Date Time Status Patient Status Manage Transfer [TRANSFER] Routine ADT 05/18/19 19:17 Active Sodium Chloride 0.9% [Normal Saline] 1,000 ml Med 05/18/19 17:00 Active IV ASDIRECTED Sodium Chloride 0.9% [Normal Saline] 1,000 ml Med 05/18/19 17:45 Active IV ASDIRECTED Sodium Chloride 0.9% [Normal Saline] 100 ml Med 05/18/19 17:45 Active IV ASDIRECTED Resuscitation Status Routine Resus Stat 05/18/19 19:19 Ordered Medication Orders Sodium Chloride (Normal Saline) 1,000 mls @ 999 mls/hr IV ASDIRECTED [facility] Last Admin: 05/18/19 17:22 Dose: 999 mls/hr Sodium Chloride (Normal Saline) 1,000 mls @ 999 mls/hr IV ASDIRECTED [facility] Last Admin: 05/18/19 18:05 Dose: 999 mls/hr Sodium Chloride (Normal Saline) 100 mls @ 3 mls/sec IV ASDIRECTED [facility] Last Admin: 05/18/19 17:59 Dose: 3.5 mls/sec Assessment/Plan Comment:: ASSESSMENT AND PLAN - chief complaint: abdominal pain - small bowel bowel obstruction This is a 63 year old female presents to the ER for evaluation of abdominal for the past 3 years. The had hernia repair 3 years ago and then one year later revised. She states abdomen has been painful ever since. Reports on Wednesday had increased pain in right lower abdomen - radiates to the back. She reports has not been able to eat for the past two days, today could not even keep water down. having diarrhea stools. pain was so bad today caused her to sweat. In ER had labs and CT of abdomen-pelvis, which shows small bowel obstruction with concerning abdominal mass. Consult to Dr. Franki Manzo by ER Medical Doctor, advised admission, NPO, Pain control, NG tube, he will evaluate in the am for possible surgical intervention. Small bowel obstruction - abdominal pain for 2 days with nausea, vomiting and abdominal pain. CT scan shows small bowel obstruction secondary to underlying small bowel mass. no pneumoperitoneum or intra-abdominal abscess. -IV fluids LR at 125ml/hr -NPO -Pain control Morphine Sulphate 2mg IV every 2 hours prn pain -NG tube placement with low intermittent suction -Surgical consultation in am, Dr. Franki Manzo consulted Tobacco -decline patch or gum Maintenance issues - - DVT prophylaxis - SCD - GI prophylaxis - IV PPI - Nutrition - nothing by mouth - Alaniz catheter - Not indicated at this time CODE STATUS - full code Admission justification - This patient will be admitted for inpatient services and is medically appropriate meeting medical necessity for inpatient admission as outlined in my documentation. I reasonably expect the patient will require inpatient services that span a period time over 2 midnights. I reasonably expect this patient to be discharged or transferred within 96 hours [facility]. Disposition - anticipate discharge home Primary care physician - Dr. Caraballo Attending - Dr. Franki Manzo Hospitalist - Dr. Simons - Mortality Measure Prognosis:: good - Mortality Measure Prognosis:: Good
[2019-05-18] MEDS ORDERED: Albuterol/Ipratropium 3.0-0.5 MG/3 ML Neb Soln NEB PRN (20:34)
[2019-05-18] MEDS ORDERED: Ondansetron 4 MG/2 ML SDV IV PRN (20:34)
[2019-05-18] MEDS ORDERED: LORazepam 2 MG/ML SDV IV PRN (20:34)
[2019-05-18] MEDS ORDERED: Morphine 2 MG/ML Syringe IVPUSH PRN (20:34)
[2019-05-18] MEDS ORDERED: Pantoprazole 40 MG Vial IV SCH (20:34)
[2019-05-18] MEDS ORDERED: Albuterol 0.083% 2.5 MG/3 ML Neb Soln NEB PRN (20:34)
[2019-05-18] MEDS: Lactated Ringers 1,000 ML IV SCH (21:08)
[2019-05-19] MEDS ORDERED: Phenol/Sodium Phenolate Spray 180 ML Bottle MUCMEM PRN (00:25)
[2019-05-19] MEDS: Lactated Ringers 1,000 ML IV SCH (05:38)
[2019-05-19] MEDS ORDERED: Potassium Chloride 100 ML IV ONE (06:43)
[2019-05-19] MEDS ORDERED: Morphine PF 150 MG/30 ML PCA Syringe IV PRN (07:12)
[2019-05-19] MEDS ORDERED: Naloxone 0.4 MG/ML SDV IV PRN (07:12)
[2019-05-19] MEDS ORDERED: Ketamine 500 MG/5 ML MDV IV SCH ×3 (07:45→12:00)
[2019-05-19] MEDS ORDERED: Succinylcholine 200 MG/10 ML MDV ONE (08:19)
[2019-05-19] MEDS ORDERED: Rocuronium 50 MG/5 ML Vial ONE (08:19)
[2019-05-19] MEDS ORDERED: Propofol 200 MG/20 ML SDV ONE (08:19)
[2019-05-19] MEDS ORDERED: Glycopyrrolate 0.2 MG/ML 5 ML MDV ONE (08:19)
[2019-05-19] MEDS ORDERED: Neostigmine Methylsulfate 1 MG/ML 5 ML Syringe ONE (08:19)
[2019-05-19] MEDS ORDERED: Dexamethasone 4 MG/ML SDV ONE (08:19)
[2019-05-19] MEDS ORDERED: Ondansetron 4 MG/2 ML SDV ONE (08:19)
--- NOTE | 2019-05-19 08:30 | CONS ---
DATE OF SERVICE: 05/19/2019 REFERRING PHYSICIAN: CONSULTING PHYSICIAN: Ketty Allison PA-C REASON FOR CONSULTATION: Bianca was asked to have a surgical consultation for partial small bowel obstruction and questionable mass in the right lower quadrant and an incisional hernia. HISTORY OF PRESENT ILLNESS: Bianca Arroyo is a 63-year-old female who states that she has had this abdominal pain for approximately 2 to 3 years after her last hernia surgery, but within the last 2 to 3 days, she started with nausea, vomiting, unable to eat or drink anything and has had watery stools. Pain was a 10/10 and brought her to the Emergency Department in [facility]. Pain is in the right lower quadrant. She states the pain will radiate over her entire abdomen, aggravated by eating and moving. Has had no appetite, nausea, and vomiting. REVIEW OF SYSTEMS: GENERAL: Denies any fever, chills, night sweats, or fatigue. Has had no weight loss. HEENT: Negative for headache. Does wear corrective lenses. LUNGS: No shortness of breath or cough. CARDIOVASCULAR: No chest pain, fast irregular heart beat. GASTROINTESTINAL: Abdominal pain as above, diarrhea, decreased appetite, nausea and vomiting. GENITOURINARY: No UTI signs or symptoms. MUSCULOSKELETAL: Chronic low back pain. SKIN: Denies any rash or changes in moles or birthmarks. PSYCHIATRIC: No anxiety, depression or insomnia. NEUROLOGIC: No loss of coordination, headache, dizziness. HEMATOLOGIC: Denies any history of anemia. Remainder of review of systems negative for any pertinent positives or negatives. ALLERGIES: DILAUDID. CURRENT HOME MEDICATIONS: 1. Hydroxychloroquine sulfate 200 mg b.i.d. 2. Multivitamin one tablet daily. 3. Sulfasalazine 1000 mg p.o. b.i.d. 4. Methotrexate 15 mg p.o. weekly. 5. Omeprazole 1 tablet p.o. daily. PAST MEDICAL HISTORY: 1. Hypertension. 2. Rheumatoid arthritis. 3. Right breast cancer. 4. Psoriasis. 5. Obesity. BMI 32.9. PAST SURGICAL HISTORY: 1. Tonsillectomy. 2. Cholecystectomy. 3. Abdominal hernia repair. 4. . 5. Hysterectomy. 6. Right mastectomy. 7. Salpingo-oophorectomy. SOCIAL HISTORY: . Smokes cigarettes for 45 years, 1/2 pack. Drinks moderate amount of coffee. Retired from her job after 37 years. Has 3 children, 2 by , and raised the third daughter from the age of 3 years. for 37 years. FAMILY HISTORY: Negative for cancer, heart disease, diabetes, kidney disease, liver disease. PHYSICAL EXAMINATION: GENERAL: Bianca Arroyo is a pleasant 63-year-old female. VITAL SIGNS: Height is 5 feet 5 inches, weight is 188 pounds. BMI is 32. TPR 97.5, 81, 18, blood pressure is 144/68. HEENT: Negative. NECK: Supple. HEART: Regular rate and rhythm. LUNGS: Clear. ABDOMEN: Distended, tender, and hernia noted in right mid and lower quadrant. Well-healed prior surgical incisions. GENITOURINARY: Deferred. RECTAL: Deferred. EXTREMITIES: Without peripheral edema. SKIN: Negative. NEUROLOGIC: Cranial nerves II through XII intact. PSYCHIATRIC: Mood and affect appropriate. ASSESSMENT: 1. Partial small bowel obstruction. 2. Nicotine addiction. 3. Hypertension. 4. Rheumatoid arthritis. 5. Psoriasis. 6. History of right breast cancer. PLAN: 1. Schedule and have consent signed for exploratory laparotomy, small bowel resection, and repair of incisional hernia. General anesthesia, TAP block, ketamine bolus, and ketamine drip. Case to follow, , Franki Manzo MD. 2. Cefoxitin 2 g IV on-call to OR. 3. Incentive spirometer. 4. After preoperative evaluation and discussion of possible risks and possible complications, the patient wishes to proceed with surgical procedure. 5. Morphine [employer] form filled out by Franki Manzo MD, faxed to Pharmacy. 6. Advance NG where it is functioning in the stomach. 7. Orders to be written postoperatively. The patient is cleared for general anesthesia. Ketty Allison PA-C /[id number]
[2019-05-19] MEDS ORDERED: Potassium Chloride 20 MEQ, Lidocaine 1% 2 ML in Sodium Chloride 0.9% 100 ML IV ONE (09:00)
[2019-05-19] MEDS ORDERED: fentaNYL 250 MCG/5 ML SDV ONE (09:11)
[2019-05-19] MEDS ORDERED: Meropenem 500 MG SDV ONE ×2 (11:37→13:45)
[2019-05-19] MEDS: cefOXitin 2 GM in Sodium Chloride 0.9% 50 ML IV ONE ×2 (11:37→16:32)
[2019-05-19] MEDS ORDERED: Ketamine 50 MG in Sodium Chloride 0.9% 49.5 ML IV SCH (12:00)
[2019-05-19] MEDS ORDERED: hydrOXYzine HCl 100 MG/2 ML SDV IM ONE (14:36)
[2019-05-19] MEDS ORDERED: fentaNYL 100 MCG/2 ML SDV IVPUSH ONE (15:19)
[2019-05-19] MEDS ORDERED: hydrOXYzine HCl 100 MG/2 ML SDV IM PRN (16:21)
[2019-05-19] MEDS: Meropenem 500 MG in Sodium Chloride 0.9% 50 ML IV SCH ×2 (16:31→22:47)
[2019-05-19] MEDS: Dextrose 5%-Lactated Ringers 1,000 ML IV SCH (19:58)
[2019-05-19] MEDS: Pantoprazole 40 MG Vial IV SCH (20:03)
[2019-05-20] MEDS: Dextrose 5%-Lactated Ringers 1,000 ML IV SCH ×2 (02:13→08:56)
[2019-05-20] MEDS: Meropenem 500 MG in Sodium Chloride 0.9% 50 ML IV SCH ×4 (04:17→22:51)
[2019-05-20] MEDS: Magnesium Sulfate/Water 2 GM in Premix Bag 1 BAG IV SCH ×3 (09:55→21:00)
[2019-05-20] MEDS: MVI, Adult with Vitamin K 10 ML, Chromium/Copper/Mang/Selen/Zn 1 ML in Dextrose 5%-Lact... IV SCH ×3 (16:21)
[2019-05-20] MEDS: Pantoprazole 40 MG Vial IV SCH (20:53)
[2019-05-21] MEDS: Magnesium Sulfate/Water 2 GM in Premix Bag 1 BAG IV SCH ×4 (03:29→21:37)
[2019-05-21] MEDS: Dextrose 5%-Lactated Ringers 1,000 ML IV SCH (03:47)
[2019-05-21] MEDS: Meropenem 500 MG in Sodium Chloride 0.9% 50 ML IV SCH ×3 (05:25→18:16)
[2019-05-21] MEDS ORDERED: Propofol 200 MG/20 ML SDV ONE ×3 (06:27→07:57)
[2019-05-21] MEDS ORDERED: fentaNYL 100 MCG/2 ML SDV ONE (06:27)
[2019-05-21] MEDS ORDERED: Midazolam 1 MG/ML 2 ML SDV ONE (06:28)
[2019-05-21] MEDS ORDERED: Meropenem 500 MG SDV ONE (06:30)
[2019-05-21] MEDS ORDERED: Bupivacaine 0.5% 50 ML MDV ONE (07:47)
[2019-05-21] MEDS ORDERED: Lidocaine 1% with EPINEPHrine 1:100,000 50 ML MDV ONE (07:48)
--- NOTE | 2019-05-21 12:32 | PCM.PN ---
- General Info Date of Service: 05/21/19 Subjective Update: Ms. Arroyo is a 63-year-old woman who I been asked to see by Dr. Manzo for evaluation of left ear pain. She was admitted late last week with abdominal pain , on evaluation found to have evidence of partial small bowel obstruction. She was taken to the operating room by Drs. Manzo for a exploratory laparotomy. She has been progressing well from the surgery but this morning noted significant throat and left ear pain. NG tube was placed on admission and just removed earlier today. Since the NG tube was removed her throat and ear pain have essentially resolved. - Review of Systems HEENT: Reports: No Symptoms - Patient Data Vitals - Most Recent: Last Vital Signs Temp 98.8 F 05/21/19 10:15 Pulse 92 05/21/19 10:15 Resp 16 05/21/19 10:15 BP 137/73 05/21/19 10:15 Pulse Ox 93 L 05/21/19 10:15 Weight - Most Recent: 197 lb 15.99 oz I&O - Last 24 Hours: Intake & Output 05/20/19 05/21/19 05/21/19 22:59 06:59 14:59 Intake Total 2334 1177 Output Total 1095 635 Balance 1239 542 Med Orders - Current: Current Medications Bisacodyl (Dulcolax) 10 mg PO BID NEO Docusate Sodium (Colace) 100 mg PO BID NEO Hydroxyzine HCl (Vistaril) 100 mg IM Q4H PRN PRN Reason: Pain Last Admin: 05/19/19 18:13 Dose: 100 mg Dextrose/Lactated Ringer's (Dextrose 5%-Lactated Ringers) 1,000 mls @ 100 mls/ hr IV ASDIRECTED [facility] Last Admin: 05/21/19 03:47 Dose: 100 mls/hr Magnesium Sulfate 2 gm/ Premix 50 mls @ 25 mls/hr IV Q6H [facility] Stop: 05/23/19 05:59 Last Admin: 05/21/19 09:41 Dose: 25 mls/hr Multivitamins/Minerals 10 ml/Chromium/Copper/Manganese/Seleni/Zn 1 ml/ Dextrose/ Lactated Ringer's 1,011 mls @ 100 mls/hr IV DAILY@1600 [facility] Stop: 05/23/19 02:07 Last Admin: 05/20/19 16:21 Dose: 100 mls/hr Meropenem 500 mg/ Sodium (Chloride) 50 mls @ 100 mls/hr IV Q6H [facility] Morphine Sulfate (Morphine [employer] 150 Mg In 30 Ml) 0 mg IV ASDIRECTED PRN; Protocol PRN Reason: Pain Last Admin: 05/19/19 16:30 Dose: 150 mg Naloxone HCl (Narcan) 0.1 mg IV ASDIRECTED PRN PRN Reason: decreased respiratory rate Ondansetron HCl (Zofran) 4 mg IV Q4H PRN PRN Reason: Nausea/Vomiting Pantoprazole Sodium (Protonix Iv) 40 mg IV BEDTIME NEO Last Admin: 05/20/19 20:53 Dose: 40 mg Discontinued Medications Albuterol (Proventil Neb Soln) 2.5 mg NEB Q4H PRN PRN Reason: Shortness Of Breath/wheezing Albuterol/Ipratropium (Duoneb 3.0-0.5 Mg/3 Ml) 3 ml NEB QID PRN PRN Reason: Shortness Of Breath/wheezing Bupivacaine HCl (Marcaine 0.5%) Confirm Administered Dose 50 ml .ROUTE .STK-MED ONE Stop: 05/21/19 07:48 Last Admin: 05/21/19 08:00 Dose: 17.5 ml Ropivacaine 45 ml/Dexamethasone 8 mg/Epinephrine HCl 0.4 mg/ Sodium Chloride 32.6 ml 0 ml NERVRT ASDIRECTED [facility] Last Admin: 05/19/19 11:38 Dose: 80 syringe Ropivacaine 45 ml/Dexamethasone 8 mg/Epinephrine HCl 0.4 mg/ Sodium Chloride 32.6 ml 0 ml NERVRT ASDIRECTED [facility] Last Admin: 05/21/19 07:57 Dose: 80 syringe Dexamethasone (Dexamethasone) Confirm Administered Dose 4 mg .ROUTE .STK-MED ONE Stop: 05/19/19 08:20 Fentanyl (Sublimaze) Confirm Administered Dose 250 mcg .ROUTE .STK-MED ONE Stop: 05/19/19 09:12 Fentanyl (Sublimaze) 50 mcg IVPUSH ONETIME ONE Stop: 05/19/19 15:20 Last Admin: 05/19/19 15:23 Dose: 50 mcg Fentanyl (Sublimaze) Confirm Administered Dose 100 mcg .ROUTE .STK-MED ONE Stop: 05/21/19 06:28 Glycopyrrolate (Robinul) Confirm Administered Dose 1 mg .ROUTE .STK-MED ONE Stop: 05/19/19 08:20 Hydromorphone HCl (Dilaudid) 0.5 mg IVPUSH ONETIME ONE Stop: 05/18/19 17:03 Last Admin: 05/18/19 19:42 Dose: Not Given Hydroxyzine HCl (Vistaril) 100 mg IM ONETIME ONE Stop: 05/19/19 14:37 Last Admin: 05/19/19 15:14 Dose: 100 mg Sodium Chloride (Normal Saline) 1,000 mls @ 999 mls/hr IV ASDIRECTED [facility] Last Admin: 05/18/19 17:22 Dose: 999 mls/hr Sodium Chloride (Normal Saline) 1,000 mls @ 999 mls/hr IV ASDIRECTED [facility] Last Admin: 05/18/19 18:05 Dose: 999 mls/hr Sodium Chloride (Normal Saline) 100 mls @ 3 mls/sec IV ASDIRECTED [facility] Last Admin: 05/18/19 17:59 Dose: 3.5 mls/sec Lactated Ringer's (Ringers, Lactated) 1,000 mls @ 125 mls/hr IV ASDIRECTED [facility] Last Admin: 05/19/19 05:38 Dose: 125 mls/hr Potassium Chloride 20 meq/Lidocaine HCl 2 ml/ Sodium Chloride 112 mls @ 56 mls/ hr IV ONETIME ONE Stop: 05/19/19 10:59 Last Admin: 05/19/19 09:49 Dose: 56 mls/hr Cefoxitin Sodium 2 gm/ Sodium (Chloride) 50 mls @ 100 mls/hr IV ONCALL ONE Stop: 05/19/19 12:29 Last Admin: 05/19/19 16:32 Dose: Not Given Ketamine HCl 50 mg/ Sodium (Chloride) 50 mls @ 17.1 mls/hr IV [facility]IRECTED [facility] Linezolid (Zyvox) Confirm Administered Dose 300 mls @ as directed .ROUTE .STK- MED ONE Stop: 05/19/19 11:38 Linezolid (Zyvox) Confirm Administered Dose 300 mls @ as directed .ROUTE .STK- MED ONE Stop: 05/19/19 13:32 Meropenem 500 mg/ Sodium (Chloride) 50 mls @ 100 mls/hr IV Q6H [facility] Last Admin: 05/21/19 05:25 Dose: 100 mls/hr Dextrose/Lactated Ringer's (Dextrose 5%-Lactated Ringers) 1,000 mls @ 175 mls/ hr IV ASDIRECTED [facility] Last Admin: 05/20/19 02:13 Dose: 175 mls/hr Linezolid (Zyvox) Confirm Administered Dose 300 mls @ as directed .ROUTE .STK- MED ONE Stop: 05/21/19 06:31 Iopamidol (Isovue-300 (61%)) 132 ml IV . DIRECTED [facility] Last Admin: 05/18/19 17:58 Dose: 132 ml Ketamine HCl (Ketalar) 28 mg IV ASDIRECTED [facility] Lidocaine HCl (Xylocaine 2% Jelly) 10 ml MUCMEM ONETIME ONE Stop: 05/18/19 20:16 Last Admin: 05/18/19 20:28 Dose: 10 ml Lidocaine/Epinephrine (Xylocaine 1% With Epinephrine 1:100,000) Confirm Administered Dose 50 ml .ROUTE .STK-MED ONE Stop: 05/21/19 07:49 Last Admin: 05/21/19 08:00 Dose: 17.5 ml Linezolid (Zyvox) 1,200 mg IRR .STK-MED ONE Stop: 05/19/19 11:50 Last Admin: 05/19/19 11:49 Dose: 1,200 mg Linezolid (Zyvox) 600 mg IRR .STK-MED ONE Stop: 05/21/19 08:01 Last Admin: 05/21/19 08:00 Dose: 600 mg Lorazepam (Ativan) 1 mg IV Q6H PRN PRN Reason: Nausea/Vomiting Last Admin: 05/19/19 00:32 Dose: 1 mg Meropenem (Merrem) Confirm Administered Dose 500 mg .ROUTE .STK-MED ONE Stop: 05/19/19 11:38 Last Admin: 05/19/19 11:48 Dose: 500 mg Meropenem (Merrem) Confirm Administered Dose 500 mg .ROUTE .STK-MED ONE Stop: 05/19/19 13:46 Meropenem (Merrem) Confirm Administered Dose 500 mg .ROUTE .STK-MED ONE Stop: 05/21/19 06:31 Last Admin: 05/21/19 08:00 Dose: 500 mg Midazolam HCl (Versed 1 Mg/Ml) Confirm Administered Dose 2 mg .ROUTE .STK-MED ONE Stop: 05/21/19 06:29 Morphine Sulfate (Morphine) 2 mg IVPUSH ONETIME ONE Stop: 05/18/19 17:05 Last Admin: 05/18/19 17:21 Dose: 2 mg Morphine Sulfate (Morphine) 2 mg IVPUSH Q2H PRN PRN Reason: Pain (severe 7-10) Neostigmine Methylsulfate (Neostigmine) Confirm Administered Dose 5 mg .ROUTE .STK-MED ONE Stop: 05/19/19 08:20 Ondansetron HCl (Zofran) 4 mg IVPUSH ONETIME ONE Stop: 05/18/19 17:02 Last Admin: 05/18/19 17:21 Dose: 4 mg Ondansetron HCl (Zofran) Confirm Administered Dose 4 mg .ROUTE .STK-MED ONE Stop: 05/19/19 08:20 Pantoprazole Sodium (Protonix Iv) 40 mg IV DAILY NEO Last Admin: 05/18/19 21:09 Dose: 40 mg Phenol (Phenaseptic Liquid) 1 ml MUCMEM Q2H PRN PRN Reason: Sore Throat Propofol (Diprivan 20 Ml) Confirm Administered Dose 200 mg .ROUTE .STK-MED ONE Stop: 05/19/19 08:20 Propofol (Diprivan 20 Ml) Confirm Administered Dose 200 mg .ROUTE .STK-MED ONE Stop: 05/21/19 06:28 Propofol (Diprivan 20 Ml) Confirm Administered Dose 200 mg .ROUTE .STK-MED ONE Stop: 05/21/19 07:58 Propofol (Diprivan 20 Ml) Confirm Administered Dose 200 mg .ROUTE .STK-MED ONE Stop: 05/21/19 07:58 Rocuronium [place] (Zemuron) Confirm Administered Dose 50 mg .ROUTE .STK-MED ONE Stop: 05/19/19 08:20 Sodium Chloride (Saline Flush) 10 ml FLUSH ONETIME ONE Stop: 05/18/19 17:46 Last Admin: 05/18/19 17:58 Dose: 10 ml Succinylcholine Chloride (Quelicin) Confirm Administered Dose 200 mg .ROUTE .STK -MED ONE Stop: 05/19/19 08:20 - Exam HEENT: Other (On direct visual examination using autoscope there is no evidence of significant inflammation in the external auditory canal or of the tympanic membrane.) - Problem List Review Problem List Initiated/Reviewed/Updated: Yes - My Orders Last 24 Hours: My Active Orders 05/20/19 11:33 5-HIAA,QUANT.,24 HR URINE Routine - Plan Plan:: Left ear pain-likely secondary to NG tube. Pain has resolved after removal of NG , exam is unremarkable.
[2019-05-21] MEDS: Bisacodyl 5 MG Tab PO SCH ×2 (13:14→20:10)
[2019-05-21] MEDS: Docusate Sodium 100 MG Cap PO SCH ×2 (13:14→20:10)
[2019-05-21] MEDS: MVI, Adult with Vitamin K 10 ML, Chromium/Copper/Mang/Selen/Zn 1 ML in Dextrose 5%-Lact... IV SCH ×3 (16:22)
[2019-05-21] MEDS: Pantoprazole 40 MG Vial IV SCH (20:11)
[2019-05-22] MEDS: Meropenem 500 MG in Sodium Chloride 0.9% 50 ML IV SCH ×5 (00:12→23:10)
[2019-05-22] MEDS: Magnesium Sulfate/Water 2 GM in Premix Bag 1 BAG IV SCH ×3 (03:43→17:58)
[2019-05-22] MEDS: Dextrose 5%-Lactated Ringers 1,000 ML IV SCH (04:13)
[2019-05-22] MEDS: Bisacodyl 5 MG Tab PO SCH ×2 (09:48→20:10)
[2019-05-22] MEDS: Docusate Sodium 100 MG Cap PO SCH ×2 (09:48→20:10)
[2019-05-22] MEDS: Potassium Chloride 20 MEQ, Lidocaine 1% 2 ML in Sodium Chloride 0.9% 100 ML IV SCH ×3 (09:57→13:41)
--- NOTE | 2019-05-22 10:21 | PN ---
DATE OF SERVICE: 05/22/2019 SUBJECTIVE: Celia is postoperative day 3. She states her pain is controlled. She has been up ambulating. She has not passed any gas. Labs this morning; hemoglobin 9.8, her potassium was 3.2, and her phosphorus was 2.3. REVIEW OF SYSTEMS: Remainder of review of systems negative for any pertinent positives and negatives. OBJECTIVE: GENERAL: Celia Arroyo is a pleasant 63-year-old female. VITAL SIGNS: TPR is 96.8, 77, 16. Blood pressure 154/79. HEENT: Negative. NECK: Supple. HEART: Regular rate and rhythm. LUNGS: Clear. ABDOMEN: Dressing dry and intact. Aquacel is on. EXTREMITIES: Without peripheral edema. ASSESSMENT: 1. Exploratory laparotomy with lysis of adhesions. a. Small-bowel resection en bloc with intraperitoneal mesh. b. Small bowel resection. c. Partial right colectomy. d. Excision of portion of the sigmoid colon wall. e. 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 Date of surgery 05/19/2019. Surgeon, Franki Manzo MD. 2. Delayed primary closure 05/21/2019. Surgeon, Franki Manzo MD. PLAN: 1. KCl 60 mEq with lidocaine in 3 divided doses IV today. 2. K-Phos 60 mmol IV 1 time today. 3. Check CBC, CMP, and phos in a.m. 4. Good pulmonary toilet. 5. We will evaluate p.r.n. or in a.m. Ketty Allison PA-C /[id number]
[2019-05-22] MEDS: Potassium Phosphates 20 MMOLE in Sodium Chloride 0.9% 250 ML IV SCH ×2 (15:24→20:21)
[2019-05-22] MEDS: Pantoprazole 40 MG Vial IV SCH (20:12)
[2019-05-23] MEDS: Potassium Phosphates 20 MMOLE in Sodium Chloride 0.9% 250 ML IV SCH (02:03)
[2019-05-23] MEDS: Magnesium Sulfate/Water 2 GM in Premix Bag 1 BAG IV SCH ×3 (05:20)
[2019-05-23] MEDS: MVI, Adult with Vitamin K 10 ML, Chromium/Copper/Mang/Selen/Zn 1 ML in Dextrose 5%-Lact... IV SCH ×3 (05:21)
[2019-05-23] MEDS: Meropenem 500 MG in Sodium Chloride 0.9% 50 ML IV SCH ×4 (06:02→23:59)
[2019-05-23] MEDS: Metoclopramide 10 MG/2 ML SDV IVPUSH SCH ×3 (08:33→20:08)
[2019-05-23] MEDS: Docusate Sodium 100 MG Cap PO SCH ×2 (08:34→20:09)
[2019-05-23] MEDS: Bisacodyl 5 MG Tab PO SCH ×2 (08:35→20:09)
[2019-05-23] MEDS: Bisacodyl 10 MG Supp RECTAL SCH ×2 (08:35→21:02)
--- NOTE | 2019-05-23 11:24 | PN ---
DATE OF SERVICE: 05/23/2019 SUBJECTIVE: She has very limited venous access. The IV she has now is working well. There has been no flatus. Up walking. States pain is controlled. Remains on sips of clear liquids and ice chips. Remainder of review of systems negative for any pertinent positives or negatives. Her last temperature at 0300 was 99.2. OBJECTIVE: GENERAL: Bianca Arroyo is a pleasant 63-year-old female. She is alert and orientated. VITAL SIGNS: TPR is 99.2. 91, 16, blood pressure 150/74. HEENT: Negative. NECK: Supple. HEART: Regular rate and rhythm. LUNGS: Clear. ABDOMEN: Dressings dry and intact. Abdominal binder is on. EXTREMITIES: Negative for any swelling. She does report pain in her right upper inner thigh with picking up her leg, stretching, or moving. There is no area of redness or rash. When lying in bed, denies any pain. Bianca states that she has had pain below her right groin more in her upper thigh area towards the inside. She states it feels like a pulled muscle, it will bother her if she stands, stretches, or moves her leg; when she gets in bed or out of bed, stands up or if she walks and takes too long steps, she will notice that pain. Otherwise, if she lays in certain position, denies any pain at all. The pain is with movement, she states. ASSESSMENT: 1. Exploratory laparotomy with lysis of adhesions. a. Small-bowel resection en bloc with intraperitoneal mesh. b. Small-bowel resection. c. Partial right colectomy. d. Excision of portion of the sigmoid colon wall. e. Placement of omentum and Vicryl mesh into pelvis for small bowel obstruction secondary to near-obstructing distal small bowel and sigmoid colon recurrent incisional hernia. f. Date of surgery 05/19/2009. Surgeon, Franki Manzo MD. 2. Delayed primary closure on 05/21/2019. Surgeon, Franki Manzo MD. PLAN: 1. Reglan 10 mg q.6 hours IV scheduled. 2. Dulcolax suppositories one b.i.d. 3. Abdominal flat and upright x-ray in a.m. 4. Continue ice chips. 5. Nursing staff will call when she has a bowel movement. 6. Observe right upper thigh pain with movement. Ketty Allison PA-C /[id number]
[2019-05-23] MEDS: Dextrose 5%-Lactated Ringers 1,000 ML IV SCH (17:24)
[2019-05-23] MEDS: Pantoprazole 40 MG Vial IV SCH (21:01)
[2019-05-24] MEDS: Metoclopramide 10 MG/2 ML SDV IVPUSH SCH (01:52)
[2019-05-24] MEDS: Meropenem 500 MG in Sodium Chloride 0.9% 50 ML IV SCH (05:11)
--- NOTE | 2019-05-24 05:20 | CRLCR ---
Indication: Followups all bowel resection. Technique: Abdomen 2 view Comparison: None Findings/Impression: Skin michael are present in the midline as well as right upper quadrant surgical clips and suture material in the right lower quadrant. Dilated loops of small bowel are present within the mid abdomen as well as a small amount of air within the colon. In the acute postoperative setting differential diagnosis would include ileus versus a low-grade small bowel obstruction. Dictated by Alberto Osuna MD @ May 24 2019 5:18AM Signed by Dr. Alberto Osuna @ May 24 2019 5:19AM
[2019-05-24] MEDS: Bisacodyl 10 MG Supp RECTAL SCH ×2 (08:54→20:15)
[2019-05-24] MEDS: Metoclopramide 10 MG Tab PO SCH ×3 (09:05→20:15)
[2019-05-24] MEDS: Docusate Sodium 100 MG Cap PO SCH ×2 (09:05→20:15)
[2019-05-24] MEDS: Bisacodyl 5 MG Tab PO SCH ×2 (09:06→20:15)
[2019-05-24] MEDS: Dextrose 5%-Lactated Ringers 1,000 ML IV SCH ×2 (09:06→19:32)
--- NOTE | 2019-05-24 11:04 | PN ---
DATE OF SERVICE: 05/24/2019 SUBJECTIVE: Celia reports that she had 2 bowel movements yesterday and 1 this morning. She is passing flatus, up, ambulating. Vital signs have been stable. Oral intake on sips of water was 480. Urine output was 1750. REVIEW OF SYSTEMS: Remainder of review of systems negative for any pertinent positives and negatives. OBJECTIVE: GENERAL: Bianca Arroyo is a pleasant 63-year-old female. She is sitting up in the chair. VITAL SIGNS: TPR 99, 92, 18. Blood pressure 162/78. HEENT: Negative. NECK: Supple. HEART: Regular rate and rhythm. LUNGS: Clear. ABDOMEN: Dressings dry and intact. She has Aquacel on and abdominal binder has been on. EXTREMITIES: Without peripheral edema. ASSESSMENT: 1. Exploratory laparotomy with lysis of adhesions. a. Small-bowel resection en bloc with intraperitoneal mesh. b. Small-bowel resection. c. Partial right colectomy. d. Excision of portion of the sigmoid colon wall. e. Placement of omentum and Vicryl mesh into pelvis for small-bowel obstruction secondary to near-obstructing small bowel and sigmoid colon and recurrent incisional hernia. Date of surgery 05/19/2019. Surgeon, Franki Manzo MD. 2. Delayed primary closure 05/21/2019. Surgeon, Franki Manzo MD. PLAN: 1. Soft low-residue diet. 2. Discontinue [employer]. 3. Percocet 5/325 mg 1 to 2 every 4 hours p.r.n. pain. 4. Reglan 10 mg p.o. q.6 hours. 5. Protonix 40 mg p.o. q.24 hours. 6. Discontinue IV Reglan and IV Protonix. 7. Discontinue IV antibiotics, she had 12 doses. 8. Plan discharge in a.m. awaiting path report. 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 9. We will evaluate p.r.n. or in a.m. 10.Plan discharge in a.m. Ketty Allison PA-C /[id number]
--- NOTE | 2019-05-24 12:04 | PN ---
DATE OF SERVICE: 05/21/2019 The patient has been afebrile with stable vital signs. No major problems were noted. Urine output has been satisfactory. NG port output is quite high, but she is taking in a large amount of volume of fluid and return appears to be fairly clear. The plan will be to proceed with delayed primary closure of the abdominal incision with delay having with to get the NG tube out and have her try to decrease the amount of oral intake and also we will get the Alaniz catheter and DELFINA drain out while the patient is under some sedation, otherwise maximize activity. We will begin some bowel stimulation today. Franki Manzo MD /[id number]
--- NOTE | 2019-05-24 13:31 | PN ---
DATE OF SERVICE: 05/20/2019 The patient is afebrile with stable vital signs. No major problems have been noted overnight. Urine output has been adequate. NG output planned delayed primary closure tomorrow. Magnesium is low. We will supplement that over the next 3 days and otherwise maximize her activities and work with pulmonary toilet. We will proceed with a delayed primary closure of the abdominal incision tomorrow. Franki Manzo MD /[id number]
--- NOTE | 2019-05-24 13:43 | OR ---
CORRECTED REPORT DATE OF PROCEDURE: 05/19/2019 SURGEON: Franki Manzo MD PREOPERATIVE DIAGNOSIS: Small bowel obstruction with possible distal small bowel tumor per CAT scan. POSTOPERATIVE DIAGNOSES: 1. Recurrent incarcerated incisional hernia. 2. Peritoneal nodule on the surface of the sigmoid colon. 3. 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 4. Extensive intraabdominal adhesions, including adhesions between small bowel and sigmoid colon. 5. Recurrent incarcerated incisional hernia. 6. Peritoneal nodule overlying sigmoid colon OPERATIVE PROCEDURE: Exploratory laparotomy with lysis of extensive adhesions and: 1. Small bowel resection en bloc with intraperitoneal mesh (13775, 47770). 2. Additional small bowel resection (03248). 3. Partial right colectomy (71554). 4. Excision of portion of sigmoid colon wall (08328). 5. Placement of omentum and Vicryl mesh into pelvis to displace pelvic and abdominal wall from underlying viscera to limit recurrent adhesion formation (09250). 6. Repair of recurrent incarcerated incisional hernia (52315). 7. Excision of peritoneal nodule overlying sigmoid colon (45011). ANESTHESIA: General. PRODUCT CONSULTANT: Ketty Allison PA-C INDICATIONS FOR PROCEDURE: This is a 63-year-old presenting with a picture of small bowel obstruction. On admission yesterday evening, the patient had a CT scan, which suggested a possibility of a small bowel tumor in that area. Plan is to proceed with an open laparotomy, small bowel resection, and/or excision of lesion as indicated. She also has recurrence of the incisional hernia. It is likely that we will need to remove the mesh in that area, which would require the hernia to be repaired without mesh and we would have to some bowel work. Otherwise, potential risks including bleeding, infection, injury to underlying viscera, possible leaks from any GI tract closures, the likelihood of recurrence of any hernia repairs that might be undertaken were all gone over, along with the remote possibility of cardiopulmonary, septic, or hemorrhagic complications leading to , and the patient wishes to proceed. DETAILS OF PROCEDURE: The patient was taken to the operating room and placed in a supine position. After general endotracheal anesthesia was induced, a Alaniz catheter was inserted and the abdomen prepped and draped. A midline incision extending from roughly a handsbreadth above the umbilicus downward toward the pubis was made and carried down through the full-thickness of the abdominal wall. Upon entering the peritoneal cavity, very extensive adhesions were encountered, and these were judiciously taken down over approximately about an hour. This eventually had the findings of the small bowel being incarcerated within the recurrent hernia in the suprapubic and right lower quadrant areas. This had some areas of bowel that were intimately attached to the mesh in that area, requiring it removal. The patient also had a firm mass in the distal small bowel. That part of the bowel was also adherent to the mesh. This was not opened at the time of the original procedure. 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 At this point, once the adhesions were taken down to the extent possible, the mesh was divided away from the abdominal wall with the small bowel at this point still attached to the mesh. One this was completely freed up, the bowel proximal and distal to that area was resected with NOA staplers proximally and distally, and the mesentery underlying this was resected widely with mesenteric michael as well. 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 It was noted that there was no evidence of any peritoneal seeding or ascites with this case. Off the field, this was then opened, and the patient was noted to have an obvious tumor within the small bowel. Given this, we initially resected some additional small bowel distally to create a little bit more margin in that regard, including some of the underlying mesentery. At that point, it was also evident that there was quite a bit of lymphadenopathy within the main ileocolic chain, and in order to have that resected out, a right colectomy will need to be undertaken. Given this, the junction of the cecum and ascending colon was divided with the NOA stapler and the underlying mesentery at the level of the takeoff of the ileocolic vessel was also then resected, and that was sent as a separate specimen. The GI tract continuity was then accomplished with a 28 mm EEA anastomosis between the ascending colon with the anvil having been placed in that organ and then closed off with a NOA stapler. The main body EEA stapler was passed then through the open end of the proximal small bowel and the ileocolic anastomosis then constructed. The angles of anastomosis and mesenteric defect were approximated with some 3-0 Vicryl stitch. One additional finding in this case was that of dense adherence of the small bowel to the sigmoid colon, and there was a relative area of deserosalization of the sigmoid colon. A portion of this wall was then resected with transversely oriented staple line, and this, as well as the other anastomoses, were all reinforced with fibrin sealant. The abdomen was then irrigated with antibiotic-containing saline solution, and no further problems were noted. A Ryan-Daniels drain was taken through the right lateral trocar site. Bilateral transversus abdominis plane blocks were placed in the midline tract. At this point, the hernia was repaired. The fascia in the midline at this point was actually fairly good, and large bites of #2 Vicryl stitch were used to close the fascia. The subcutaneous tissue was felt to be at high risk for wound infection, and the wound was packed open for a planned delayed primary closure in 48 hours. Of note is that, prior to closure of the fascia, the omentum and Vicryl mesh were then mobilized downward into the pelvis to limit recurrent adhesion formation, and by displacing the small bowel, it should at some point push it in the lower abdomen and pelvis. The skin and subcutaneous tissue were then packed open with iodoform gauze, and the patient was taken to the recovery room in satisfactory condition. One additional finding also was that of a nodule on the surface of the sigmoid colon. This was mildly concerning for possible metastatic site, this measured less than 1 cm and had been excised earlier in the case and sent as a separate specimen. Physician tv production assistant, Ketty Allison, played an essential role in assisting in this case, helping to position the patient, retract structures as needed, as well as suturing and cutting sutures when indicated. Her presence improved patient safety and decreased operative time. Franki Manzo MD /[id number]
--- NOTE | 2019-05-24 13:46 | OR ---
DATE OF PROCEDURE: 05/21/2019 PREOPERATIVE DIAGNOSIS: Open abdominal incision. POSTOPERATIVE DIAGNOSIS: Open abdominal incision. OPERATIVE PROCEDURE: Delayed primary closure of open abdominal incision. ANESTHESIA: Local plus IV sedation. INDICATION FOR PROCEDURE: This is a 63-year-old, status post a complex open bowel surgery through a long midline incision 48 hours ago. The plan is to undergo a delayed primary closure as this was felt to be at high risk for closure at that time. Potential risks including bleeding and infection were reviewed, and the patient wishes to proceed. DETAILS OF PROCEDURE: The patient was taken to the operating room and placed in a supine position. IV sedation was administered, after which the operative dressing was taken down. The incision was inspected and found to be clean. This area was then prepped and draped. Bilateral transversus abdominis plane blocks were then placed with ultrasound guidance. The incision was then anesthetized with 1% lidocaine mixed with Marcaine, irrigated with meropenem-containing saline solution. The incision was then closed with 2 layers of 3-0 Vicryl stitch deep and then michael for the skin. Dressing was applied. The patient was taken to the recovery room in a satisfactory condition. Franki Manzo MD /[id number]
[2019-05-24] MEDS: Acetaminophen/oxyCODONE 325-5 MG Tab PO PRN (18:28)
[2019-05-24] MEDS ORDERED: Pantoprazole 40 MG Tab.CR PO SCH (21:00)
[2019-05-25 03:13] VITALS: BP 153/74
[2019-05-25] MEDS: Metoclopramide 10 MG Tab PO SCH ×2 (03:25→07:53)
[2019-05-25] MEDS: Dextrose 5%-Lactated Ringers 1,000 ML IV SCH (05:02)
[2019-05-25] MEDS: Docusate Sodium 100 MG Cap PO SCH (09:31)
[2019-05-25] MEDS: Bisacodyl 10 MG Supp RECTAL SCH (09:31)
[2019-05-25] MEDS: Bisacodyl 5 MG Tab PO SCH (09:31)
[2019-05-25] MEDS: Acetaminophen/oxyCODONE 325-5 MG Tab PO PRN (10:37)
--- NOTE | 2019-05-26 06:08 | DISCH ---
ADMISSION DIAGNOSES: 1. Partial small bowel obstruction. 2. History of right breast cancer. 3. Rheumatoid arthritis. 4. Tobacco dependence. DISCHARGE DIAGNOSES: 1. Exploratory laparotomy with lysis of extensive adhesion. 2. Small-bowel resection en bloc with intraperitoneal mesh. 3. Additional small bowel resection. 4. Partial right colectomy. 5. Excision of portion of sigmoid colon wall. 6. Placement of omentum and Vicryl mesh in the pelvis to displace pelvic and abdominal wall from underlining viscera to limit recurrent adhesion formation. 7. Repair of recurrent incarcerated incisional hernia. 8. Excision of peritoneal nodule overlying sigmoid colon. POSTOPERATIVE DIAGNOSES: 1. Small-bowel obstruction with possible distal small bowel tumor per her CAT scan. a. Recurrent incarcerated incisional hernia. b. Peritoneal nodule on the surface of sigmoid colon. c. Small bowel obstruction secondary to near-obstructing distal small-bowel tumor. d. Extensive intraabdominal adhesions including adhesions between small bowel and sigmoid colon. e. Recurrent incarcerated incisional hernia. f. Date of surgery 05/19/2019. Surgeon, Franki Manzo MD. 2. Delayed primary closure, 05/21/2019. Surgeon, Franki Manzo MD. HISTORY: Bianca Arroyo is a pleasant 63-year-old female who presented with a small bowel obstruction. She was admitted on 05/18/2019 and had a CAT scan with possibility of a small bowel tumor in that area. After preoperative evaluation and discussion of possible risks and possible complications, she elected to proceed with surgical procedure on 05/19/2019. She had no operative complications. On postoperative day #1, vital signs were stable. She was afebrile. Magnesium was supplemented. On postoperative day #2, she was seen by hospitalist for left ear pain, which was thought to be secondary to NG tube. On 05/22, postop day #3, her potassium and phosphorus were replaced. There was no bowel activity. On 05/23/2019, there continued to be no bowel activity. She was started on Reglan 10 mg IV and Dulcolax suppositories. Later in that day, had 2 bowel movements, and on 05/24, was started on a soft low-residue diet, changed to oral pain medication, and on 05/25/2019, she was ready to be discharged. Activity was good. Pain was well managed. Vital signs were stable. PHYSICAL EXAMINATION: GENERAL: Bianca Arroyo is a 63-year-old female. VITAL SIGNS: Height is 5 feet 4.96 inches. Weight is 197 pounds. T/P/R: 97.9, 85, 16. Blood pressure 153/74. HEENT: Negative. NECK: Supple. HEART: Regular rate and rhythm. LUNGS: Clear. ABDOMEN: Hortensia intact. Abdominal binder is on. EXTREMITIES: Without peripheral edema. DISPOSITION: Discharged to home. CONDITION: Stable and improving. FOLLOWUP: Followup appointment with Franki Manzo MD, at [facility] on 05/31/2019 at 10 a.m. HOME MEDICATIONS: Percocet 5/325 mg 1 to 2 every 4 hours p.r.n. pain, #30. She is to resume her home medications of hydroxychloroquine 200 mg oral twice daily, methotrexate 15 mg oral weekly, multivitamin 1 tablet oral daily, omeprazole 1 tablet oral daily, and sulfasalazine 1000 mg oral twice daily. DIET: GI, soft, low-residue, low-fiber diet ACTIVITIES: No lifting over 10 pounds for 6 weeks. Other Activity: Walk at least 6 times daily. Driving: Do not drive for 1 week and while on pain medication. Shower/Bathing: May shower. Notify provider if any fever, increased pain, nausea, vomiting. Keep site clean and dry. Wear abdominal binder for 6 weeks and then as needed. Use incentive spirometer 10 times every hour while awake.
== END 2019-05-25 10:38 | disposition home or self-care (01) | DRG 331 ==
LOC: JP.ED 16:11 → JP.MS 19:17
PROVIDERS: ADMIT Hospitalist; ATTEND Hospitalist
PROC: 0DNW0ZZ Release Peritoneum, Open Approach (ICD-10-PCS; principal; 2019-05-19)
PROC: 0DTF0ZZ Resection of Right Large Intestine, Open Approach (ICD-10-PCS; 2019-05-19)
PROC: 0DBV0ZZ Excision of Mesentery, Open Approach (ICD-10-PCS; 2019-05-19)
PROC: 0DBH0ZZ Excision of Cecum, Open Approach (ICD-10-PCS; 2019-05-19)
PROC: 0DBN0ZX Excision of Sigmoid Colon, Open Approach, Diagnostic (ICD-10-PCS; 2019-05-19)
PROC: 0WUF0JZ Supplement Abdominal Wall with Synthetic Substitute, Open Approach (ICD-10-PCS; 2019-05-19)
DX: K43.0 Incisional hernia with obstruction, without gangrene (principal); K56.609 Unspecified intestinal obstruction, unspecified as to partial versus complete obstruction; M06.9 Rheumatoid arthritis, unspecified; H92.02 Otalgia, left ear; E87.6 Hypokalemia; E83.42 Hypomagnesemia; E83.39 Other disorders of phosphorus metabolism; F17.210 Nicotine dependence, cigarettes, uncomplicated; F17.200 Nicotine dependence, unspecified, uncomplicated; H54.7 Unspecified visual loss; I10 Essential (primary) hypertension; Z68.32 Body mass index [BMI] 32.0-32.9, adult; E66.9 Obesity, unspecified; Z90.89 Acquired absence of other organs; Z90.49 Acquired absence of other specified parts of digestive tract; L40.9 Psoriasis, unspecified; G89.29 Other chronic pain; Z90.710 Acquired absence of both cervix and uterus; Z90.11 Acquired absence of right breast and nipple; Z79.899 Other long term (current) drug therapy; Z90.721 Acquired absence of ovaries, unilateral; Z90.79 Acquired absence of other genital organ(s); Z88.8 Allergy status to other drugs, medicaments and biological substances; Z98.890 Other specified postprocedural states; Z68.33 Body mass index [BMI] 33.0-33.9, adult; Z85.3 Personal history of malignant neoplasm of breast
CPT/HCPCS: 36415; 74177; 80053; 81001; 83690; 85025; 86140; 96361; 96374; 96375; 99285 ×2; J2270; J2405; J7030 ×3; 74019; 80048; 83497; 83735; 83880; 84100; 85027; 86316; 87493; 88307; 88309; 88341; 88342; 88360; 88365; 88377; 94762; A9270-GY; C1781; C9113; J0171; J0330; J0694; J1100; J2001; J2020; J2060; J2185; J2250; J2704; J2710; J2765; J2795; J3010; J3410; J3475; J3480; J3490; J7042; J7050; J7120

== ENCOUNTER 2019-06-08 09:44 | Day surgery (SDC) | payer MEDICARE, OTHER ==
[~2019-06-08 09:44] MED LIST: Bupivacaine 0.5% 50 ML MDV ONE; Lidocaine 1% with EPINEPHrine 1:100,000 50 ML MDV ONE
[2019-06-08] MEDS ORDERED: Dextrose 5%-Lactated Ringers 1,000 ML IV SCH (10:10)
[2019-06-08] MEDS ORDERED: Linezolid 600 MG in Premix Bag 1 BAG IV ONE (10:15)
[2019-06-08] MEDS ORDERED: Midazolam 1 MG/ML 2 ML SDV ONE (10:44)
[2019-06-08] MEDS ORDERED: fentaNYL 100 MCG/2 ML SDV ONE (10:44)
[2019-06-08] MEDS ORDERED: Propofol 200 MG/20 ML SDV ONE (10:44)
[2019-06-08] MEDS ORDERED: Lidocaine 1% 2 ML ONE (10:45)
[2019-06-08 13:11] VITALS: BP 150/94; PULSE 80
--- NOTE | 2019-06-14 10:22 | OR ---
DATE OF PROCEDURE: 06/08/2019 SURGEON: Franki Manzo MD PREOPERATIVE DIAGNOSIS: Indication for central venous access. POSTOPERATIVE DIAGNOSIS: Indication for central venous access. PROCEDURE: Insertion of Bard port via left subclavian vein approach (13134). ANESTHESIA: Local plus IV sedation. INDICATION FOR PROCEDURE: The patient was recently diagnosed with a small bowel lymphoma and will be undergoing chemotherapy. To facilitate venous access, Bard port has to be placed. Potential risks including bleeding, infection, problems with the port becoming infected or occluded were reviewed with the patient along with possibility of injury such as pneumothorax or vascular injury were all gone over and the patient wishes to proceed. DETAILS OF PROCEDURE: The patient was taken to the operating room and placed in a supine position. Upper chest and neck areas were then prepped and draped. The left subclavian area was then anesthetized with 1% lidocaine mixed with Marcaine and left subclavian vein cannulated. A guidewire was passed and manipulated at the superior vena cava. Some additional local was then injected and transverse infraclavicular incision was made, carried down through the skin and subcutaneous tissue, and through the pectoralis major fascia, a subfascial pocket was then bluntly constructed. Bard port was then assembled and flushed with heparinized saline. Bard port was placed into the pocket and the catheter was cut such that the tip would lie in the area of the superior vena cava and right atrial junction and was positioned over the introducer and peel-away catheter system without difficulty. Incision was closed with 3-0 and 4-0 Vicryl stitch deep and 4-0 Vicryl subcuticular stitch. The port was then aspirated and then flushed with good backward and forward flow and was completely then flushed with heparinized saline. Steri-Strips were applied. The patient was taken to the recovery room in satisfactory condition. There were no evident complications. Franki Manzo MD /[id number]
== END 2019-06-08 13:25 | disposition home or self-care (01) ==
LOC: JP.SDS 09:44
PROVIDERS: ATTEND Surgery
DX: C85.89 Other specified types of non-Hodgkin lymphoma, extranodal and solid organ sites (principal); I10 Essential (primary) hypertension; C50.911 Malignant neoplasm of unspecified site of right female breast; K21.9 Gastro-esophageal reflux disease without esophagitis; F17.210 Nicotine dependence, cigarettes, uncomplicated; Z88.5 Allergy status to narcotic agent
CPT/HCPCS: 36561; C1788; J1642; J2001; J2020; J2250; J2704; J3010; J3490

== ENCOUNTER 2020-02-15 08:07 | Day surgery (SDC) | payer MEDICARE, OTHER ==
[~2020-02-15 08:07] MED LIST changes: -Bupivacaine 0.5% 50 ML MDV ONE; +Dexamethasone 4 MG/ML SDV ONE; +Glycopyrrolate 0.2 MG/ML 5 ML MDV ONE; -Lidocaine 1% with EPINEPHrine 1:100,000 50 ML MDV ONE; +Neostigmine Methylsulfate 1 MG/ML 5 ML Syringe ONE; +Ondansetron 4 MG/2 ML SDV ONE; +Propofol 200 MG/20 ML SDV ONE; +Rocuronium 50 MG/5 ML Vial ONE; +Succinylcholine 200 MG/10 ML MDV ONE; +ePHEDrine 50 MG/ML SDV ONE; +fentaNYL 250 MCG/5 ML SDV ONE
[2020-02-15] MEDS ORDERED: Acetaminophen 500 MG Tab PO ONE (08:15)
[2020-02-15] MEDS ORDERED: Dextrose 5%-Lactated Ringers 1,000 ML IV SCH (08:45)
[2020-02-15] MEDS ORDERED: Bupivacaine 0.5%/EPINEPHrine 1:200,000 50 ML MDV ONE (09:11)
[2020-02-15] MEDS ORDERED: ceFAZolin 2 GM in Premix Bag 1 BAG IV ONE (09:30)
[2020-02-15] MEDS ORDERED: Lidocaine 1% 2 ML ONE (09:48)
[2020-02-15] MEDS ORDERED: ePHEDrine 50 MG/ML SDV ONE (10:05)
[2020-02-15] MEDS ORDERED: Ondansetron 4 MG/2 ML SDV IVPUSH PRN (12:13)
[2020-02-15] MEDS ORDERED: Morphine 2 MG/ML SYRINGE IVPUSH PRN (12:13)
[2020-02-15] MEDS ORDERED: Morphine 4 MG/ML Syringe IVPUSH PRN (12:13)
[2020-02-15] MEDS ORDERED: hydrOXYzine HCL 100 MG/2 ML SDV IM PRN (12:15)
[2020-02-15] MEDS ORDERED: Acetaminophen 500 MG Tab PO PRN (20:46)
[2020-02-16 06:21] VITALS: BP 106/49; PULSE 63
[2020-02-16] MEDS ORDERED: Potassium Chloride 10 MEQ Cap.ER PO SCH (08:00)
[2020-02-16] MEDS ORDERED: Hydroxychloroquine 200 MG Tab PO SCH (09:00)
[2020-02-16] MEDS ORDERED: sulfaSALAzine 500 MG Tab PO SCH (09:00)
--- NOTE | 2020-02-16 10:07 | DISCH ---
ADMISSION DIAGNOSES: 1. Asymmetric soft tissue prominence in left external iliac lymph node. 2. Diffuse large B-cell lymphoma small bowel, stage IV. 3. Diarrhea, dumping syndrome. 4. Stage II breast cancer, 3 nodules positive. 5. Unintentional weight loss due to small-bowel resection and chronic diarrhea. DISCHARGE DIAGNOSES: Left pelvic external iliac lymphadenectomy for probable recurrent persistent lymphoma involving left external iliac node. Date of surgery: 02/15/2020. Surgeon: Franki Manzo MD. HISTORY: Bianca has finished chemotherapy. She had a PET scan done which revealed left external iliac node enlargement. After preoperative evaluation and discussion of possible risks and possible complications, she wished to proceed with surgical procedure. HOSPITAL COURSE: Bianca had her surgery on 02/15/2020. She had no complications. She was able to be discharged to home on postoperative day 1. Vital signs were stable, oral intake adequate. Activity good. Pain was controlled. PHYSICAL EXAMINATION: GENERAL: Bianca Arroyo is a pleasant 64-year-old female. VITAL SIGNS: Height is 5 feet 5 inches, weight is 148 pounds. TPR at 0320; 98.7, 63, 18. blood pressure 106/49. HEENT: Negative. NECK: Supple. HEART: Regular rate and rhythm. LUNGS: Clear. ABDOMEN: Negative. Left inguinal dressing dry and intact. DELFINA drain is intact and has drained a total of 35 mL in the past 24 hours of a light red drainage. EXTREMITIES: Without peripheral edema. DISPOSITION: Discharged to home. CONDITION: Stable and improving. FOLLOWUP: Followup appointment with Dr. Franki Manzo on 02/21/2020 at 1:30 p.m. HOME MEDICATION: 1. Live Oak 5/325 mg 1 tablet every 4 hours p.r.n. pain, #20. 2. To resume all home medication. DIET: Usual diet as tolerated, drink 8 to 10 glasses of water a day. ACTIVITY: As tolerated with no lifting greater than 10 pounds for 4 weeks. Driving: Do not drive for 1 week and within 6 hours of taking the Live Oak. Shower/bathing: May shower. Keep site clean and dry. Wound care: Strip, empty, measure and record DELFINA drain 4 times a day and bring record of drainage to clinic appointment. Notify provider if any fever, increased pain, nausea, or vomiting. SPECIAL INSTRUCTIONS: Use incentive spirometer 10 times every hour while awake.
--- NOTE | 2020-02-21 12:35 | OR ---
DATE OF PROCEDURE: 02/15/2020 SURGEON: Franki Manzo MD PREOPERATIVE DIAGNOSIS: Probable recurrent lymphoma involving left external iliac cecy area. POSTOPERATIVE DIAGNOSIS: Probable recurrent lymphoma involving left external iliac cecy area. OPERATIVE PROCEDURE: Left pelvic (external iliac) lymphadenectomy (40328). ANESTHESIA: General. HIDE AND SKIN CLASSER: Ketty Allison PA-C INDICATIONS FOR PROCEDURE: This is a 64-year-old, presenting following treatment for a small bowel lymphoma with a PET scan showing high uptake in a node in the left external iliac area. Plan is to proceed with a limited lymphadenectomy in that area. Potential risks including bleeding, infection, some possible swelling of the leg were reviewed, and the patient wishes to proceed. DETAILS OF PROCEDURE: The patient was taken to the operating room and placed in a supine position. Initially, ultrasound was obtained looking at the left iliac area and the area of the somewhat enlarged node was confirmed. The abdomen was then prepped and draped. A curvilinear incision was then made somewhat above the inguinal ligament and the external oblique aponeurosis underlying the internal oblique musculature and transverse abdominis musculature were divided in length of their fibers. This then allowed a retroperitoneal approach with blunt dissection downward under the area overlying the iliac vessels using hemoclips and electrocautery for dissection. The cecy lymphatic tissues from the inguinal ligament downward to the junction of the common iliac vein were removed. This included roughly a 1 to 1.5 cm node that had a neal appearance within it, suggestive of a lymphoma. At that point, hemostasis appeared to be satisfactory, as there may be some lymphatic leaking. A 7-Tajik Ryan-Daniels drain was then placed through a stab wound lateral to the incision and into the area of the lymph node dissection. Musculature was then reapproximated using a running #1 Vicryl stitch, the subcutaneous tissue with 4-0 Vicryl stitch, and the skin with a 4-0 Vicryl subcuticular stitch. Drain was fixed to the skin with some 4-0 Vicryl stitch as well. The patient was taken to the recovery room in satisfactory condition. Physician traffic assistant, Ketty Allison, played an essential role in assisting in this case; helping to position the patient, retract structures as needed, as well as suturing and cutting sutures when indicated. Her presence improved patient safety and decreased the operative time. Franki Manzo MD /[id number]
== END 2020-02-16 08:00 | disposition home or self-care (01) ==
LOC: JP.SDS 08:07 → JP.MS 11:05 → JP.SDS 02-16 08:00
PROVIDERS: ATTEND Surgery
DX: C83.33 Diffuse large B-cell lymphoma, intra-abdominal lymph nodes (principal); K52.9 Noninfective gastroenteritis and colitis, unspecified; R63.4 Abnormal weight loss; C85.90 Non-Hodgkin lymphoma, unspecified, unspecified site; K91.1 Postgastric surgery syndromes; E04.1 Nontoxic single thyroid nodule; I10 Essential (primary) hypertension; J35.8 Other chronic diseases of tonsils and adenoids; Z85.3 Personal history of malignant neoplasm of breast; Z90.10 Acquired absence of unspecified breast and nipple; Z79.899 Other long term (current) drug therapy; Z88.5 Allergy status to narcotic agent; Z68.25 Body mass index [BMI] 25.0-25.9, adult; Z90.49 Acquired absence of other specified parts of digestive tract
CPT/HCPCS: 38770; 76998; 88323; 88341; 88342; 88364; 88365; 88368; A9270; J0330; J0690; J1100; J1642; J2001; J2405; J2704; J2710; J3010; J3490; J7121

== ENCOUNTER 2020-03-23 05:49 | Day surgery (SDC) | payer MEDICARE, OTHER ==
[2020-03-23] MEDS ORDERED: Lidocaine 1% with EPINEPHrine 1:100,000 50 ML MDV ONE (06:53)
[2020-03-23] MEDS ORDERED: Bupivacaine 0.5% 50 ML MDV ONE (06:53)
[2020-03-23] MEDS ORDERED: Midazolam 1 MG/ML 2 ML SDV ONE (06:58)
[2020-03-23] MEDS ORDERED: Propofol 200 MG/20 ML SDV ONE ×2 (06:58→07:58)
[2020-03-23] MEDS ORDERED: fentaNYL 100 MCG/2 ML SDV ONE (06:58)
[2020-03-23] MEDS ORDERED: Dextrose 5%-Lactated Ringers 1,000 ML IV SCH (07:00)
[2020-03-23] MEDS ORDERED: Linezolid 600 MG in Premix Bag 1 BAG IV ONE (07:15)
[2020-03-23] MEDS ORDERED: Lidocaine 2% 5 ML SDV ONE (07:27)
[2020-03-23 09:12] VITALS: BP 95/69; PULSE 66
--- NOTE | 2020-03-25 13:54 | OR ---
DATE OF PROCEDURE: 03/23/2020 SURGEON: Franki Manzo MD PREOPERATIVE DIAGNOSIS: Poorly functioning port. POSTOPERATIVE DIAGNOSES: 1. Placement of new Bard port via left subclavian approach (66693). 2. Removal of Bard port located in the left subclavian vein area (74673). ANESTHESIA: Local plus IV sedation. INDICATION FOR PROCEDURE: This is a 64-year-old female presenting with a port which functions in terms of infusions, but does not allow withdrawal of blood through it. She is going to be undergoing chemotherapy in anticipation of a bone marrow transplant, and the [facility] has requested a port that allows blood draws as she will have quite a bit of those over the next several weeks. Plan is to proceed with placement of a new port along with removal of the old port. Potential risks including bleeding, infection, injury to the vasculature and/or lung were reviewed, and the patient wishes to proceed. DETAILS OF PROCEDURE: The patient was taken to the operating room and placed in a supine position. IV sedation was administered after which the upper chest and neck areas were prepped and draped. Initially, the right subclavian area was anesthetized with 1% lidocaine and the right subclavian vein was cannulated on 3 occasions and at no point could be manipulated past the right innominate vein, likely associated with some narrowing in that area. Given this, the left subclavian area was anesthetized with 1% lidocaine mixed with Marcaine. The left subclavian vein was cannulated and the guidewire manipulated from there into the superior vena cava. A transverse incision was then made over the new location and carried down through the skin and subcutaneous tissue and through the pectoralis major fascia. A pocket was then dissected behind the pectoralis major fascia and the port placed in that area. The catheter was cut such that the tip would lie in the area of the upper right atrium and this was delivered over a peel-away catheter without difficulty. That incision was then closed with 3-0 and 4-0 Vicryl stitch deep and a 5-0 Vicryl subcuticular stitch. The old port site was then anesthetized as well. Incision over the old port which is just lateral to the new port was made and carried down through the skin and subcutaneous tissue. The fibrous attachments around the port were freed up and a pursestring stitch was placed where the catheter exited the port with a 3-0 Vicryl stitch and the port catheter was withdrawn as that stitch was pulled up and tied. That incision was then closed with some 3- 0 Vicryl stitch deep and a 5-0 Vicryl subcuticular stitch. Following this, the new port was aspirated and good blood return was noted. The port was flushed with heparinized saline and dressing was applied. The patient was taken to the recovery room in satisfactory condition. Franki Manzo MD /[id number]
== END 2020-03-23 09:45 | disposition home or self-care (01) ==
LOC: JP.SDS 05:49
PROVIDERS: ATTEND Surgery
DX: T82.594A Other mechanical complication of infusion catheter, initial encounter (principal); C50.919 Malignant neoplasm of unspecified site of unspecified female breast; I10 Essential (primary) hypertension; F17.200 Nicotine dependence, unspecified, uncomplicated; Z88.5 Allergy status to narcotic agent
CPT/HCPCS: 36561; 36590; 77001; J1642; J2001; J2020; J2250; J2704; J3010; J3490; J7121; C1788

== ENCOUNTER 2021-01-07 07:06 | Emergency (ER) | payer MEDICARE, OTHER ==
--- NOTE | 2021-01-07 07:15 | EDM.PDOC ---
ED HPI GENERAL MEDICAL PROBLEM - General Chief Complaint: Neuro Symptoms/Deficits Stated Complaint: MEDICAL Time Seen by Provider: 01/07/21 07:06 Source of Information: Reports: Patient, EMS History Limitations: Reports: No Limitations - History of Present Illness INITIAL COMMENTS - FREE TEXT/NARRATIVE: 65-year-old female woke up this morning at 5:30 AM with mild to moderate ex pressive aphasia. Denies any other symptoms, no headache, visual complaints, peripheral weakness or paresthesias. She has never had symptoms like this in the past. She was fine when she went to bed last evening at 9 PM, woke up at 5:30 with symptoms. She has a history of stage III lymphoma, responded to chemotherapy and currently is considered to be in remission. She did have a stem cell transplant in April. A follow-up 1 month ago was "good". She is on no anticoagulants, is in a normal sinus rhythm and other than the expressive aphasia has no symptoms. A week and a half ago she had a small cosmetic procedure around the right eye and still has some slight bruising but no other symptoms regarding the procedure. Onset: Unknown/Unsure (Last known well was 10 hours ago) Improves with: Reports: None Worsens with: Reports: None Associated Symptoms: Reports: No Other Symptoms - Related Data Allergies Allergy/AdvReac Type Severity Reaction Status Date / Time hydromorphone HCl AdvReac Nausea and Verified 05/02/20 09:14 [From Dilaudid] Vomiting Home Meds: Home Meds Multivitamin [Multiple Vitamins] 2 tab PO DAILY 03/08/15 [History] Penicillin V Potassium 500 mg PO BID 01/07/21 [History] Past Medical History HEENT History: Reports: Other (See Below) Other HEENT History: wears glasses Cardiovascular History: Reports: Hypertension Gastrointestinal History: Reports: Cholelithiasis, Chronic Diarrhea, Other (See Below) Other Gastrointestinal History: enlarged iliac lymph node Genitourinary History: Reports: Renal Calculus STAVE BLOCK ROLLER History: Reports: Musculoskeletal History: Reports: RA Other Musculoskeletal History: rheumatoid arthritis Endocrine/Metabolic History: Reports: Obesity/BMI 30+ Oncologic (Cancer) History: Reports: Breast, Lymphoma Dermatologic History: Reports: Psoriasis - Infectious Disease History Infectious Disease History: Reports: Chicken Pox, Measles, Shingles - Past Surgical History HEENT Surgical History: Reports: Adenoidectomy, Tonsillectomy Cardiovascular Surgical History: Reports: None GI Surgical History: Reports: Appendectomy, Cholecystectomy, Colonoscopy, EGD, Hernia, Abdominal Female Surgical History: Reports: Section, Hysterectomy, Mastectomy, Salpingo-Oophorectomy Endocrine Surgical History: Reports: None Neurological Surgical History: Reports: None Dermatological Surgical History: Reports: None Social & Family History - Family History Family Medical History: No Pertinent Family History - Caffeine Use Caffeine Use: Reports: Coffee - Living Situation & Occupation Living situation: Reports: Occupation: Retired (lives with of 37 years in [place], [place]. She retired this year from her job of 37 years. has 3 children; 2 by and another Daughter they raised from the age of 3 years.) ED ROS GENERAL - Review of Systems Review Of Systems: See Below Constitutional: Denies: Fever, Chills, Malaise HEENT: Denies: Vision Change Respiratory: Denies: Shortness of Breath Cardiovascular: Denies: Chest Pain, Palpitations GI/Abdominal: Reports: Diarrhea, Other (Patient has been struggling with some persistent diarrhea and "hernia problems".) : Reports: No Symptoms Skin: Reports: Bruising (Small amount of bruising under the right eye from her recent procedure) Neurological: Reports: Other (Stroke scale was "1"). Denies: Dizziness, Headache, Difficulty Walking, Weakness Psychiatric: Reports: No Symptoms ED EXAM, NEURO - Physical Exam Exam: See Below Exam Limited By: No Limitations General Appearance: Alert, No Apparent Distress Eye Exam: Bilateral Eye: Normal Inspection, PERRL, Other (Visual del valle are intact) Head Exam: Other (Slight bruising under the right eye, otherwise no evidence of trauma) Neck: Normal Inspection. No: Lymphadenopathy (R), Lymphadenopathy (L) Respiratory/Chest: No Respiratory Distress, Lungs Clear Cardiovascular: Regular Rate, Rhythm. No: Extra Beats GI/Abdominal: Normal Bowel Sounds, Soft Neurological: Alert, No Motor/Sensory Deficits, Oriented x 3, Other (All muscle strength of the extremities and face are symmetric, no deficit. Grasp strength is equal, she can raise her legs off the bed against gravity without problem. Only neurologic deficit is moderate expressive aphasia, she cannot repeat "no ifs, ands or buts"). No: Abnormal Light Touch Extremities: Normal Inspection Psychiatric: Normal Affect, Normal Mood Skin Exam: Warm, Dry Course - Vital Signs Last Recorded V/S: Last Vital Signs Temp 97.8 F 01/07/21 07:08 Pulse 74 01/07/21 07:48 Resp 12 01/07/21 07:48 BP 151/78 H 01/07/21 07:48 Pulse Ox 100 01/07/21 07:48 - Orders/Labs/Meds Orders: Active Orders 24 hr Category Date Time Status COVID-19/FLU A+B/RSV [MOLEC] Stat Lab 01/07/21 08:55 Received Labs: Laboratory Tests 01/07/21 01/07/21 01/07/21 Range/Units 07:48 07:48 07:48 WBC 5.6 (4.5-11.0) K/uL RBC 3.45 (3.30-5.50) M/uL Hgb 11.8 L D (12.0-15.0) g/dL Hct 35.5 L (36.0-48.0) % MCV 103 H (80-98) fL MCH 34 H (27-31) pg MCHC 33 (32-36) % Plt Count 96 L (150-400) K/uL Neut % (Auto) 70 H (36-66) % Lymph % (Auto) 21 L (24-44) % Reeves % (Auto) 5 (2-6) % Eos % (Auto) 4 (2-4) % Baso % (Auto) 0 (0-1) % PT 11.3 (9.5-12.0) sec INR 1.04 (0.80-1.20) Sodium 145 (140-148) mmol/L Potassium 3.5 L (3.6-5.2) mmol/L Chloride 110 H (100-108) mmol/L Carbon Dioxide 24 (21-32) mmol/L Anion Gap 14.5 H (5.0-14.0) mmol/L BUN 17 D (7-18) mg/dL Creatinine 0.5 L (0.6-1.0) mg/dL Est Cr Clr Drug Dosing 98.25 mL/min Estimated GFR (MDRD) > 60 (>60) Glucose 109 H (74-106) mg/dL Calcium 8.9 (8.5-10.1) mg/dL Total Bilirubin 0.3 (0.2-1.0) mg/dL AST 24 (15-37) U/L ALT 40 (12-78) U/L Alkaline Phosphatase 77 (46-116) U/L Total Protein 6.8 (6.4-8.2) g/dL Albumin 3.3 L (3.4-5.0) g/dL Globulin 3.5 (2.3-3.5) g/dL Albumin/Globulin Ratio 0.9 L (1.2-2.2) - Re-Assessments/Exams Free Text/Narrative Re-Assessment/Exam: 01/07/21 07:32 CT of the head without contrast was ordered. CBC CMP PT and coronavirus testing were done anticipating likely transfer. 01/07/21 07:43 After discussing possible transfer with the patient and her , [facility] was the preferred transfer hospital. CT scan was pushed through to [facility]. Patient remained unchanged, NIH stroke scale was one. 01/07/21 08:04 IMPRESSION: No acute findings. No signs of acute ischemia. There are areas of chronic ischemia/infarct. 01/07/21 08:27 Labs returned relatively reassuring, kidney function is excellent. Patient remained unchanged, this was discussed with interventional neurology at [facility] and accepted transfer. She will be assessed in the emergency room initially for CT angiogram and MRI. She will be transferred by EMS. Patient was accepted for transfer at 08:15 Departure - Departure Time of Disposition: 09:21 Disposition: DC/Tfer to Other 70 Clinical Impression: Expressive aphasia Cerebrovascular accident (CVA) Qualifiers: CVA mechanism: unspecified Qualified Code(s): I63.9 - Cerebral infarction, unspecified - Discharge Information Referrals: PCP,None [Primary Care Provider] - Forms: ED Department Discharge Care Plan Goals: Patient will be transferred by EMS to [facility] for further evaluation by interventional neurology of expressive aphasia likely caused by a small CVA event. Sepsis Event Note (ED) - Evaluation Sepsis Screening Result: No Definite Risk - Focused Exam Vital Signs: Vital Signs Temp Pulse Resp BP Pulse Ox 01/07/21 07:48 74 12 151/78 H 100 01/07/21 07:08 97.8 F 71 13 166/80 H - My Orders Last 24 Hours: My Active Orders 01/07/21 08:55 COVID-19/FLU A+B/RSV [[facility]LEC] Stat - Assessment/Plan Last 24 Hours: My Active Orders 01/07/21 08:55 COVID-19/FLU A+B/RSV [MOLEC] Stat
[2021-01-07 07:49] VITALS: BP 151/78; PULSE 74
--- NOTE | 2021-01-07 08:02 | CRLCT ---
INDICATION: Expressive aphasia. TECHNIQUE: CT head without contrast. COMPARISON: None. FINDINGS: CSF spaces: Within normal limits for age. Brain parenchyma and extra-axial spaces: There are chronic bilateral basal ganglia lacunar infarcts. Small area of encephalomalacia is in the left temporal occipital region consistent with an old infarct. No sign of acute CVA or hemorrhage. No mass effect or midline shift. Skull base and calvarium: The visualized paranasal sinuses and mastoid air cells demonstrate no acute or significant findings. The visualized orbits are grossly unremarkable. No skull fractures. IMPRESSION: No acute findings. No signs of acute ischemia. There are areas of chronic ischemia/infarct. Please note that all CT scans at this facility use dose modulation, iterative reconstruction, and/or weight-based dosing when appropriate to reduce radiation dose to as low as reasonably achievable. Dictated by Jimmy Mendez MD @ Jan 07 2021 7:50AM Signed by Dr. Jimmy Mendez @ Jan 07 2021 8:00AM
[2021-01-07 09:37] LABS: CORONAVIRUS COVID-19 NAA NEGATIVE (NEGATIVE)
== END 2021-01-07 09:21 | disposition other institution (70) ==
LOC: JP.ED 07:06
DX: I69.320 Aphasia following cerebral infarction (principal); I10 Essential (primary) hypertension; M79.81 Nontraumatic hematoma of soft tissue; E66.9 Obesity, unspecified; Z68.23 Body mass index [BMI] 23.0-23.9, adult; Z85.72 Personal history of non-Hodgkin lymphomas; Z88.5 Allergy status to narcotic agent; Z20.822 Contact with and (suspected) exposure to COVID-19
CPT/HCPCS: 0241U; 36415; 70450; 80053; 85025; 85610; 99285

== ENCOUNTER 2023-01-18 14:08 | Emergency (ER) | payer MEDICARE, OTHER ==
[2023-01-18 14:37] VITALS: BP 157/56; PULSE 55
[2023-01-18] MEDS ORDERED: Ketorolac 30 MG/ML SDV IVPUSH ONE (14:41)
[2023-01-18] MEDS ORDERED: Tamsulosin 0.4 MG Cap.ER PO ONE (16:08)
== END 2023-01-18 16:59 | disposition home or self-care (01) ==
LOC: JP.ED 14:08
DX: N13.2 Hydronephrosis with renal and ureteral calculous obstruction (principal); I10 Essential (primary) hypertension; E66.9 Obesity, unspecified; Z68.25 Body mass index [BMI] 25.0-25.9, adult; Z88.8 Allergy status to other drugs, medicaments and biological substances; Z79.82 Long term (current) use of aspirin; Z72.0 Tobacco use
CPT/HCPCS: 36415; 74176; 80048; 85025; 96374; 99284; A9270; J1885; 99283

== ENCOUNTER 2023-01-19 07:30 | Emergency (ER) | payer MEDICARE, OTHER ==
[2023-01-19] MEDS ORDERED: Acetaminophen 325 MG Tab PO ONE (07:41)
[2023-01-19] MEDS ORDERED: cefTRIAXone 2 GM in Sodium Chloride 0.9% 50 ML IV ONE (07:42)
[2023-01-19] MEDS ORDERED: Sodium Chloride 0.9% 1,000 ML IV SCH ×2 (07:45)
[2023-01-19 08:38] LABS: ESTIMATED GFR 69 mL/min (>60)
[2023-01-19] MEDS ORDERED: Potassium Chloride 10 MEQ in Premix Bag 1 BAG IV ONE (08:42)
[2023-01-19] MEDS ORDERED: Potassium Chloride 20 MEQ Tab.ER PO ONE (08:42)
[2023-01-19 09:20] VITALS: BP 101/44; PULSE 76
== END 2023-01-19 09:45 ==
LOC: JP.ED 07:30
DX: A41.9 Sepsis, unspecified organism (principal); N20.1 Calculus of ureter; E86.0 Dehydration; E87.6 Hypokalemia; I10 Essential (primary) hypertension; E66.9 Obesity, unspecified; Z68.25 Body mass index [BMI] 25.0-25.9, adult; Z88.5 Allergy status to narcotic agent; Z20.822 Contact with and (suspected) exposure to COVID-19; Z86.73 Personal history of transient ischemic attack (TIA), and cerebral infarction without residual deficits; Z94.84 Stem cells transplant status; Z85.71 Personal history of Hodgkin lymphoma
CPT/HCPCS: 36415; 80053; 81001; 83605; 85025; 87040; 87077; 87086; 87186; 96365; 96367; 99285; A9270; J0696; J3480; J3490; J7030; U0002

== ENCOUNTER 2023-04-07 22:13 | Inpatient (IN) | payer MEDICARE, OTHER ==
[2023-04-07] MEDS ORDERED: fentaNYL 50 MCG/ML SDV IVPUSH ONE (23:06)
[2023-04-07] MEDS ORDERED: Ondansetron 4 MG/2 ML SDV IVPUSH ONE (23:06)
[2023-04-07] MEDS ORDERED: Sodium Chloride 0.9% 1,000 ML IV SCH (23:15)
[2023-04-07 23:19] LABS: BASOPHILS PERCENT AUTO 0.2 % (0.1-1.3); EOSINOPHILS ABSOLUTE AUTO 0.18 K/uL (0.00-0.40); EOSINOPHILS PERCENT AUTO 3.9 % (0.0-5.4); HEMATOCRIT 28.5 % (34.3-46.0); HEMOGLOBIN 9.8 g/dL (11.2-15.5); IMMATURE GRAN ABSOLUTE AUTO 0.04 K/uL (0.00-0.23); IMMATURE GRAN PERCENT AUTO 0.9 % (0.0-0.7); LYMPHOCYTES ABSOLUTE AUTO 1.08 K/uL (0.8-3.3); LYMPHOCYTES PERCENT AUTO 23.2 % (11.4-47.7); MEAN CORPUSCULAR HEMOGLOBIN 36.4 pg (31.6-35.5); MEAN CORPUSCULAR HGB CONC 34.4 g/dL (31.6-35.5); MEAN CORPUSCULAR VOLUME 105.9 fL (81.4-99.0); MONOCYTES ABSOLUTE AUTO 0.26 K/uL (0.20-0.90); MONOCYTES PERCENT AUTO 5.6 % (3.3-12.6); NEUTROPHILS ABSOLUTE AUTO 3.09 K/uL (1.0-7.6); NEUTROPHILS PERCENT AUTO 66.2 % (40.0-78.1); PLATELET COUNT,PLT 72 K/uL (130-375); RED BLOOD CELL COUNT 2.69 M/uL (3.77-5.24); WHITE BLOOD CELL COUNT,WBC 4.7 K/uL (3.2-11.0)
[2023-04-07 23:23] LABS: BASOPHILS ABSOLUTE AUTO 0.01 K/uL (0.00-0.10)
[2023-04-07 23:37] LABS: A/G RATIO 0.8 (1.2-2.2); ALANINE AMINOTRANSFERASE,ALT 31 U/L (12-78); ALBUMIN 2.7 g/dL (3.4-5.0); ALKALINE PHOSPHATASE 86 U/L (46-116); AMYLASE 12 U/L (25-115); ASPARTATE AMNIOTRANSFERASE,AST 32 U/L (15-37); BILIRUBIN TOTAL 1.2 mg/dL (0.2-1.0); BLOOD UREA NITROGEN,BUN 13 mg/dL (7-18); CALCIUM 8.9 mg/dL (8.5-10.1); CARBON DIOXIDE,CO2 28 mmol/L (21-32); CHLORIDE,CL 104 mmol/L (100-108); CREATININE 0.7 mg/dL (0.6-1.0); EST CRCL DRUG DOSING (CG) 68.25 mL/min; ESTIMATED GFR 94 mL/min (>60); GLUCOSE RANDOM 105 mg/dL (74-106); MAGNESIUM 1.4 mg/dL (1.8-2.4); PHOSPHORUS 3.1 mg/dL (2.5-4.9); POTASSIUM,K 3.3 mmol/L (3.6-5.2); SODIUM,NA 139 mmol/L (140-148)
[2023-04-07 23:39] LABS: ANION GAP 10.3 mmol/L (5.0-14.0)
[2023-04-07] MEDS ORDERED: Sodium Chloride 0.9% 50 ML IV STA (23:43)
[2023-04-07] MEDS ORDERED: Iopamidol 612 MG/ML 100 ML Bottle IV STA (23:43)
[2023-04-08] MEDS ORDERED: Dextrose 5%-Lactated Ringers 1,000 ML IV SCH (00:15)
[2023-04-08] MEDS ORDERED: Potassium Chloride 20 MEQ in Premix Bag 1 BAG IV ONE (00:41)
[2023-04-08 01:31] LABS: APPEARANCE,URINE CLEAR (CLEAR); BILIRUBIN,URINE NEGATIVE (NEGATIVE); COLOR,URINE YELLOW (YELLOW); GLUCOSE,URINE NEGATIVE (NEGATIVE); KETONES,URINE NEGATIVE (NEGATIVE); LEUKOCYTE ESTERASE,URINE NEGATIVE (NEGATIVE); NITRITE,URINE POSITIVE (NEGATIVE); OCCULT BLOOD,URINE NEGATIVE (NEGATIVE); PROTEIN,URINE NEGATIVE (NEGATIVE); UROBILINOGEN,URINE 0.2 EU/dL (0.2-1.0)
[2023-04-08 01:43] LABS: AMORPHOUS SEDIMENT,URINE NOT SEEN; BACTERIA,URINE MODERATE; EPITHELIAL CELLS,URINE FEW; MUCUS,URINE NOT SEEN; RBC,URINE 0-5 (0-5); WBC,URINE 0-5 (0-5)
[2023-04-08] MEDS ORDERED: Naloxone 0.4 MG/ML SDV IVPUSH PRN (02:10)
[2023-04-08] MEDS ORDERED: Sodium Chloride 0.9% 1,000 ML IV SCH (02:15)
[2023-04-08] MEDS: fentaNYL 50 MCG/ML SDV IVPUSH PRN ×3 (03:15→21:36)
[2023-04-08] MEDS ORDERED: LORazepam 2 MG/ML SDV IV PRN (03:16)
[2023-04-08] MEDS: Ondansetron 4 MG/2 ML SDV IVPUSH PRN (03:18)
[2023-04-08 05:22] LABS: BASOPHILS PERCENT AUTO 0.2 % (0.1-1.3); EOSINOPHILS ABSOLUTE AUTO 0.12 K/uL (0.00-0.40); EOSINOPHILS PERCENT AUTO 2.9 % (0.0-5.4); HEMATOCRIT 26.6 % (34.3-46.0); HEMOGLOBIN 9.3 g/dL (11.2-15.5); IMMATURE GRAN PERCENT AUTO 0.2 % (0.0-0.7); LYMPHOCYTES ABSOLUTE AUTO 0.81 K/uL (0.8-3.3); LYMPHOCYTES PERCENT AUTO 19.7 % (11.4-47.7); MEAN CORPUSCULAR HEMOGLOBIN 36.8 pg (31.6-35.5); MEAN CORPUSCULAR VOLUME 105.1 fL (81.4-99.0); MONOCYTES ABSOLUTE AUTO 0.24 K/uL (0.20-0.90); MONOCYTES PERCENT AUTO 5.8 % (3.3-12.6); NEUTROPHILS ABSOLUTE AUTO 2.92 K/uL (1.0-7.6); NEUTROPHILS PERCENT AUTO 71.2 % (40.0-78.1); PLATELET COUNT,PLT 65 K/uL (130-375); RED BLOOD CELL COUNT 2.53 M/uL (3.77-5.24); WHITE BLOOD CELL COUNT,WBC 4.1 K/uL (3.2-11.0)
[2023-04-08 05:29] LABS: ANION GAP 10.6 mmol/L (5.0-14.0); BASOPHILS ABSOLUTE AUTO 0.01 K/uL (0.00-0.10); CALCIUM 8.1 mg/dL (8.5-10.1); CREATININE 0.6 mg/dL (0.6-1.0); EST CRCL DRUG DOSING (CG) 79.63 mL/min; IMMATURE GRAN ABSOLUTE AUTO 0.01 K/uL (0.00-0.23); POTASSIUM,K 3.6 mmol/L (3.6-5.2)
[2023-04-08] MEDS ORDERED: fentaNYL 50 MCG/ML SDV IVPUSH ONE (08:26)
[2023-04-08] MEDS: Dextrose 5%-Lactated Ringers 1,000 ML IV SCH ×2 (14:21→21:37)
[2023-04-08] MEDS: Acetaminophen 500 MG Tab PO PRN (17:04)
[2023-04-08] MEDS: Pantoprazole 40 MG Vial IVPUSH SCH (17:07)
[2023-04-09 04:55] LABS: HEMATOCRIT 26.5 % (34.3-46.0); HEMOGLOBIN 9.2 g/dL (11.2-15.5); MEAN CORPUSCULAR HEMOGLOBIN 36.8 pg (31.6-35.5); MEAN CORPUSCULAR HGB CONC 34.7 g/dL (31.6-35.5); RED BLOOD CELL COUNT 2.5 M/uL (3.77-5.24); WHITE BLOOD CELL COUNT,WBC 3.1 K/uL (3.2-11.0)
[2023-04-09 05:27] LABS: A/G RATIO 0.9 (1.2-2.2); ALANINE AMINOTRANSFERASE,ALT 28 U/L (12-78); ALBUMIN 2.4 g/dL (3.4-5.0); ALKALINE PHOSPHATASE 78 U/L (46-116); ASPARTATE AMNIOTRANSFERASE,AST 31 U/L (15-37); BILIRUBIN TOTAL 1.1 mg/dL (0.2-1.0); BLOOD UREA NITROGEN,BUN 12 mg/dL (7-18); CARBON DIOXIDE,CO2 27 mmol/L (21-32); CHLORIDE,CL 105 mmol/L (100-108); CREATININE 0.6 mg/dL (0.6-1.0); EST CRCL DRUG DOSING (CG) 79.63 mL/min; ESTIMATED GFR 97 mL/min (>60); GLUCOSE RANDOM 128 mg/dL (74-106); MAGNESIUM 1.4 mg/dL (1.8-2.4); PHOSPHORUS 1.9 mg/dL (2.5-4.9); POTASSIUM,K 3.1 mmol/L (3.6-5.2); PRO B-TYPE NATRIUR PEPT,BNPPRO 235 pg/mL (5-125); PROTEIN TOTAL,TP 5.2 g/dL (6.4-8.2); SODIUM,NA 139 mmol/L (140-148)
[2023-04-09 05:30] LABS: ANION GAP 10.1 mmol/L (5.0-14.0)
[2023-04-09] MEDS: Dextrose 5%-Lactated Ringers 1,000 ML IV SCH ×2 (05:47→19:17)
[2023-04-09] MEDS ORDERED: Potassium Phosphates 3 mMole/ML 15 ML SDV IV ONE (07:48)
[2023-04-09] MEDS ORDERED: Ondansetron 4 MG/2 ML SDV IVPUSH PRN (08:04)
[2023-04-09] MEDS ORDERED: Naloxone 0.4 MG/ML SDV IVPUSH PRN (08:04)
[2023-04-09] MEDS ORDERED: diphenhydrAMINE 25 MG Cap PO PRN (08:04)
[2023-04-09] MEDS ORDERED: diphenhydrAMINE 50 MG/ML SDV IVPUSH PRN (08:04)
[2023-04-09] MEDS: Piperacillin/Tazobactam/Dext 3.375 GM in Premix Bag 1 BAG IV SCH ×3 (09:11→20:30)
[2023-04-09] MEDS: Aspirin 81 MG Tab.EC PO SCH (09:12)
[2023-04-09] MEDS: Gabapentin 100 MG Cap PO SCH (09:12)
[2023-04-09] MEDS: Potassium Chloride 20 MEQ Tab.ER PO SCH (09:12)
[2023-04-09] MEDS: Potassium Phosphates 20 MMOLE in Sodium Chloride 0.9% 250 ML IV SCH ×3 (10:04→17:23)
[2023-04-09] MEDS: Magnesium Sulfate/Water 2 GM in Premix Bag 1 BAG IV SCH ×3 (10:04→21:21)
[2023-04-09] MEDS: fentaNYL/Normal Saline 600 MCG/30 ML PCA Vial IV PRN (12:06)
[2023-04-09] MEDS: Acetaminophen 500 MG Tab PO PRN (16:22)
[2023-04-09] MEDS: Pantoprazole 40 MG Vial IVPUSH SCH (17:00)
[2023-04-10] MEDS: Piperacillin/Tazobactam/Dext 3.375 GM in Premix Bag 1 BAG IV SCH ×2 (02:40→08:45)
[2023-04-10] MEDS: Magnesium Sulfate/Water 2 GM in Premix Bag 1 BAG IV SCH ×4 (03:48→20:59)
[2023-04-10 04:21] LABS: HEMATOCRIT 25.5 % (34.3-46.0); HEMOGLOBIN 8.7 g/dL (11.2-15.5); MEAN CORPUSCULAR HEMOGLOBIN 36.1 pg (31.6-35.5); MEAN CORPUSCULAR HGB CONC 34.1 g/dL (31.6-35.5); MEAN CORPUSCULAR VOLUME 105.8 fL (81.4-99.0); RED BLOOD CELL COUNT 2.41 M/uL (3.77-5.24)
[2023-04-10 04:54] LABS: A/G RATIO 0.8 (1.2-2.2); ALANINE AMINOTRANSFERASE,ALT 25 U/L (12-78); ALBUMIN 2.2 g/dL (3.4-5.0); ALKALINE PHOSPHATASE 72 U/L (46-116); ASPARTATE AMNIOTRANSFERASE,AST 26 U/L (15-37); BILIRUBIN TOTAL 1.2 mg/dL (0.2-1.0); BLOOD UREA NITROGEN,BUN 5 mg/dL (7-18); CALCIUM 7.2 mg/dL (8.5-10.1); CARBON DIOXIDE,CO2 25 mmol/L (21-32); CHLORIDE,CL 106 mmol/L (100-108); CREATININE 0.6 mg/dL (0.6-1.0); EST CRCL DRUG DOSING (CG) 79.63 mL/min; ESTIMATED GFR 97 mL/min (>60); GLUCOSE RANDOM 107 mg/dL (74-106); MAGNESIUM 2.4 mg/dL (1.8-2.4); PHOSPHORUS 2.5 mg/dL (2.5-4.9); POTASSIUM,K 3.6 mmol/L (3.6-5.2); PRO B-TYPE NATRIUR PEPT,BNPPRO 472 pg/mL (5-125); PROTEIN TOTAL,TP 4.9 g/dL (6.4-8.2); SODIUM,NA 138 mmol/L (140-148)
[2023-04-10 05:01] LABS: ANION GAP 10.6 mmol/L (5.0-14.0)
[2023-04-10] MEDS: Dextrose 5%-Lactated Ringers 1,000 ML IV SCH ×2 (06:24→15:31)
[2023-04-10] MEDS: Gabapentin 100 MG Cap PO SCH (08:44)
[2023-04-10] MEDS: Aspirin 81 MG Tab.EC PO SCH (08:45)
[2023-04-10] MEDS: Potassium Chloride 20 MEQ Tab.ER PO SCH (08:45)
[2023-04-10] MEDS: Potassium Phos in 0.9 % NaCl 15 MMOL in Premix Bag 1 BAG IV SCH ×8 (10:31→20:59)
[2023-04-10] MEDS: Cephalexin 250 MG Cap PO SCH ×2 (12:24→20:59)
[2023-04-10] MEDS: Ondansetron 4 MG/2 ML SDV IVPUSH PRN (15:26)
[2023-04-10] MEDS: Pantoprazole 40 MG Vial IVPUSH SCH (18:11)
[2023-04-10] MEDS: Acetaminophen 500 MG Tab PO PRN (18:16)
[2023-04-11] MEDS: Dextrose 5%-Lactated Ringers 1,000 ML IV SCH ×3 (01:48→22:30)
[2023-04-11] MEDS: Magnesium Sulfate/Water 2 GM in Premix Bag 1 BAG IV SCH ×4 (03:58→22:31)
[2023-04-11] MEDS ORDERED: Iopamidol 612 MG/ML 100 ML Bottle IV PRN (04:30)
[2023-04-11] MEDS ORDERED: Sodium Chloride 0.9% 50 ML IV ONE (04:30)
[2023-04-11] MEDS ORDERED: Sodium Chloride 0.9% 10 ML Syringe FLUSH PRN (04:30)
[2023-04-11 04:31] LABS: HEMATOCRIT 26.7 % (34.3-46.0); MEAN CORPUSCULAR HEMOGLOBIN 36.6 pg (31.6-35.5); MEAN CORPUSCULAR HGB CONC 33.7 g/dL (31.6-35.5); MEAN CORPUSCULAR VOLUME 108.5 fL (81.4-99.0); PLATELET COUNT,PLT 67 K/uL (130-375); RED BLOOD CELL COUNT 2.46 M/uL (3.77-5.24); WHITE BLOOD CELL COUNT,WBC 3.3 K/uL (3.2-11.0)
[2023-04-11 04:58] LABS: A/G RATIO 0.8 (1.2-2.2); ALANINE AMINOTRANSFERASE,ALT 22 U/L (12-78); ALBUMIN 2.2 g/dL (3.4-5.0); ALKALINE PHOSPHATASE 68 U/L (46-116); ASPARTATE AMNIOTRANSFERASE,AST 26 U/L (15-37); BILIRUBIN TOTAL 0.8 mg/dL (0.2-1.0); BLOOD UREA NITROGEN,BUN 5 mg/dL (7-18); CALCIUM 7.5 mg/dL (8.5-10.1); CARBON DIOXIDE,CO2 27 mmol/L (21-32); CHLORIDE,CL 106 mmol/L (100-108); CREATININE 0.6 mg/dL (0.6-1.0); EST CRCL DRUG DOSING (CG) 79.63 mL/min; ESTIMATED GFR 97 mL/min (>60); GLUCOSE RANDOM 113 mg/dL (74-106); PHOSPHORUS 3.5 mg/dL (2.5-4.9); POTASSIUM,K 4.2 mmol/L (3.6-5.2); PRO B-TYPE NATRIUR PEPT,BNPPRO 494 pg/mL (5-125); SODIUM,NA 138 mmol/L (140-148)
[2023-04-11 05:01] LABS: ANION GAP 9.2 mmol/L (5.0-14.0)
[2023-04-11 05:02] LABS: ATYPICAL LYMPHOCYTES RARE; EOSINOPHILS ABSOLUTE MAN 0.33 K/uL (0.00-0.40); EOSINOPHILS PERCENT MAN 10 % (2-4); LYMPHOCYTES ABSOLUTE MAN 1.02 K/uL (0.8-3.3); LYMPHOCYTES PERCENT MAN 31 % (24-44); MONOCYTES PERCENT MAN 6 % (2-6); NEUTROPHILS ABSOLUTE MAN 1.75 K/uL (1.0-7.6); SEG NEUTROPHILS PERCENT MAN 53 % (36-66)
[2023-04-11] MEDS: Cephalexin 250 MG Cap PO SCH ×2 (10:33→20:07)
[2023-04-11] MEDS: Potassium Chloride 20 MEQ Tab.ER PO SCH (10:33)
[2023-04-11] MEDS: Aspirin 81 MG Tab.EC PO SCH (10:33)
[2023-04-11] MEDS: Gabapentin 100 MG Cap PO SCH (10:34)
[2023-04-11] MEDS: Pantoprazole 40 MG Vial IVPUSH SCH (16:58)
[2023-04-11] MEDS: Ondansetron 4 MG/2 ML SDV IVPUSH PRN (17:12)
[2023-04-11] MEDS: Acetaminophen 500 MG Tab PO PRN (20:06)
[2023-04-12 04:25] LABS: BASOPHILS PERCENT AUTO 0.5 % (0.1-1.3); EOSINOPHILS ABSOLUTE AUTO 0.36 K/uL (0.00-0.40); EOSINOPHILS PERCENT AUTO 9.5 % (0.0-5.4); HEMATOCRIT 26.6 % (34.3-46.0); LYMPHOCYTES PERCENT AUTO 31.7 % (11.4-47.7); MEAN CORPUSCULAR HEMOGLOBIN 36.7 pg (31.6-35.5); MEAN CORPUSCULAR HGB CONC 33.8 g/dL (31.6-35.5); MEAN CORPUSCULAR VOLUME 108.6 fL (81.4-99.0); MONOCYTES ABSOLUTE AUTO 0.37 K/uL (0.20-0.90); MONOCYTES PERCENT AUTO 9.8 % (3.3-12.6); NEUTROPHILS ABSOLUTE AUTO 1.83 K/uL (1.0-7.6); NEUTROPHILS PERCENT AUTO 48.5 % (40.0-78.1); PLATELET COUNT,PLT 80 K/uL (130-375); RED BLOOD CELL COUNT 2.45 M/uL (3.77-5.24); WHITE BLOOD CELL COUNT,WBC 3.8 K/uL (3.2-11.0)
[2023-04-12] MEDS: Magnesium Sulfate/Water 2 GM in Premix Bag 1 BAG IV SCH (04:26)
[2023-04-12 04:28] LABS: BASOPHILS ABSOLUTE AUTO 0.02 K/uL (0.00-0.10)
[2023-04-12 04:45] LABS: A/G RATIO 0.8 (1.2-2.2); ALANINE AMINOTRANSFERASE,ALT 23 U/L (12-78); ALBUMIN 2.2 g/dL (3.4-5.0); ALKALINE PHOSPHATASE 68 U/L (46-116); ANION GAP 10.6 mmol/L (5.0-14.0); ASPARTATE AMNIOTRANSFERASE,AST 33 U/L (15-37); BILIRUBIN TOTAL 0.7 mg/dL (0.2-1.0); BLOOD UREA NITROGEN,BUN 3 mg/dL (7-18); CALCIUM 7.6 mg/dL (8.5-10.1); CARBON DIOXIDE,CO2 27 mmol/L (21-32); CHLORIDE,CL 105 mmol/L (100-108); CREATININE 0.7 mg/dL (0.6-1.0); EST CRCL DRUG DOSING (CG) 68.25 mL/min; ESTIMATED GFR 94 mL/min (>60); GLUCOSE RANDOM 105 mg/dL (74-106); MAGNESIUM 2.7 mg/dL (1.8-2.4); PHOSPHORUS 2.6 mg/dL (2.5-4.9); POTASSIUM,K 4.6 mmol/L (3.6-5.2); SODIUM,NA 138 mmol/L (140-148)
[2023-04-12] MEDS: Potassium Chloride 20 MEQ Tab.ER PO SCH (08:17)
[2023-04-12] MEDS: Cephalexin 250 MG Cap PO SCH ×2 (08:17→21:12)
[2023-04-12] MEDS: Gabapentin 100 MG Cap PO SCH (08:17)
[2023-04-12] MEDS: Aspirin 81 MG Tab.EC PO SCH (08:17)
[2023-04-12] MEDS: Dextrose 5%-Lactated Ringers 1,000 ML IV SCH ×2 (08:40→17:20)
[2023-04-12] MEDS: Pantoprazole 40 MG Vial IVPUSH SCH (16:20)
[2023-04-12] MEDS: Ondansetron 4 MG/2 ML SDV IVPUSH PRN (16:21)
[2023-04-13] MEDS: Dextrose 5%-Lactated Ringers 1,000 ML IV SCH ×3 (03:26→18:11)
[2023-04-13 04:33] LABS: HEMATOCRIT 26.3 % (34.3-46.0); HEMOGLOBIN 8.9 g/dL (11.2-15.5); MEAN CORPUSCULAR HEMOGLOBIN 36.8 pg (31.6-35.5); MEAN CORPUSCULAR HGB CONC 33.8 g/dL (31.6-35.5); MEAN CORPUSCULAR VOLUME 108.7 fL (81.4-99.0); RED BLOOD CELL COUNT 2.42 M/uL (3.77-5.24); WHITE BLOOD CELL COUNT,WBC 4.1 K/uL (3.2-11.0)
[2023-04-13 04:59] LABS: A/G RATIO 0.8 (1.2-2.2); ALANINE AMINOTRANSFERASE,ALT 22 U/L (12-78); ALBUMIN 2.2 g/dL (3.4-5.0); ALKALINE PHOSPHATASE 64 U/L (46-116); ASPARTATE AMNIOTRANSFERASE,AST 26 U/L (15-37); BILIRUBIN TOTAL 0.9 mg/dL (0.2-1.0); BLOOD UREA NITROGEN,BUN 3 mg/dL (7-18); CALCIUM 7.7 mg/dL (8.5-10.1); CARBON DIOXIDE,CO2 29 mmol/L (21-32); CHLORIDE,CL 104 mmol/L (100-108); CREATININE 0.7 mg/dL (0.6-1.0); EST CRCL DRUG DOSING (CG) 68.25 mL/min; ESTIMATED GFR 94 mL/min (>60); GLUCOSE RANDOM 104 mg/dL (74-106); MAGNESIUM 1.8 mg/dL (1.8-2.4); PHOSPHORUS 2.7 mg/dL (2.5-4.9); POTASSIUM,K 4.2 mmol/L (3.6-5.2); PRO B-TYPE NATRIUR PEPT,BNPPRO 412 pg/mL (5-125); PROTEIN TOTAL,TP 4.9 g/dL (6.4-8.2); SODIUM,NA 136 mmol/L (140-148)
[2023-04-13 05:00] LABS: ANION GAP 7.2 mmol/L (5.0-14.0)
[2023-04-13] MEDS: Pantoprazole 40 MG Vial IVPUSH SCH ×2 (05:17→18:18)
[2023-04-13] MEDS ORDERED: Lidocaine 1% with EPINEPHrine 1:100,000 50 ML MDV ONE (06:37)
[2023-04-13] MEDS ORDERED: Meropenem 500 MG SDV ONE ×2 (06:37→14:17)
[2023-04-13] MEDS ORDERED: Bupivacaine 0.5% 50 ML MDV ONE (06:37)
[2023-04-13] MEDS ORDERED: fentaNYL 250 MCG/5 ML SDV ONE ×2 (08:56→14:59)
[2023-04-13] MEDS ORDERED: Succinylcholine 200 MG/10 ML MDV ONE (08:57)
[2023-04-13] MEDS ORDERED: Propofol 200 MG/20 ML SDV ONE ×2 (08:57→10:39)
[2023-04-13] MEDS ORDERED: Dexamethasone 4 MG/ML SDV ONE (08:57)
[2023-04-13] MEDS ORDERED: Neostigmine Methylsulfate 1 MG/ML 5 ML Syringe ONE (08:57)
[2023-04-13] MEDS ORDERED: Ondansetron 4 MG/2 ML SDV ONE (08:57)
[2023-04-13] MEDS ORDERED: Rocuronium 50 MG/5 ML Vial ONE ×2 (08:57→13:15)
[2023-04-13] MEDS ORDERED: Glycopyrrolate 0.2 MG/ML 5 ML MDV ONE (08:57)
[2023-04-13] MEDS: Aspirin 81 MG Tab.EC PO SCH (09:33)
[2023-04-13] MEDS: Gabapentin 100 MG Cap PO SCH (09:33)
[2023-04-13] MEDS: Potassium Chloride 20 MEQ Tab.ER PO SCH (09:33)
[2023-04-13] MEDS: fentaNYL/Normal Saline 600 MCG/30 ML PCA Vial IV PRN (09:43)
[2023-04-13] MEDS ORDERED: Meropenem 500 MG in Sodium Chloride 0.9% 50 ML IV ONE (10:30)
[2023-04-13] MEDS ORDERED: fentaNYL 50 MCG/ML SDV ONE (10:39)
[2023-04-13] MEDS ORDERED: Midazolam 1 MG/ML 2 ML SDV ONE (10:39)
[2023-04-13] MEDS ORDERED: Ketamine 17 MG in Sodium Chloride 0.9% 19.83 ML IV SCH (10:45)
[2023-04-13] MEDS ORDERED: Ropivacaine 35 ML, dexAMETHasone 8 MG, EPINEPHrine 0.4 MG, Sodium Chloride 0.9% 42.6 ML NERVRT SCH ×4 (10:45)
[2023-04-13] MEDS ORDERED: Ketamine 500 MG/5 ML MDV IV SCH (10:45)
[2023-04-13] MEDS ORDERED: Sodium Chloride 0.9% 10 ML ONE (12:55)
[2023-04-13] MEDS ORDERED: Phenylephrine 1% 10 MG/ML SDV ONE (12:55)
[2023-04-13] MEDS ORDERED: ePHEDrine 50 MG/ML SDV ONE (13:11)
[2023-04-13] MEDS ORDERED: Linezolid 600 MG/300 ML Premix Bag IRR ONE (13:53)
[2023-04-13] MEDS ORDERED: Lactated Ringers 1,000 ML ONE (14:52)
[2023-04-13] MEDS ORDERED: Albuterol/Ipratropium 3.0-0.5 MG/3 ML Neb Soln INH PRN (17:33)
[2023-04-13] MEDS ORDERED: MVI, Adult with Vitamin K 10 ML, Thiamine 200 MG, Zinc/Copper/Manganese/Selenium 1 ML i... IV SCH ×4 (18:00)
[2023-04-13] MEDS ORDERED: hydrOXYzine HCL 100 MG/2 ML SDV IM PRN (18:00)
[2023-04-13] MEDS ORDERED: Ondansetron 4 MG/2 ML SDV IVPUSH PRN (18:00)
[2023-04-13] MEDS ORDERED: Labetalol 20 MG/4 ML Syringe IVPUSH PRN (18:00)
[2023-04-13] MEDS ORDERED: Metoclopramide 10 MG/2 ML SDV IVPUSH PRN (18:00)
[2023-04-13] MEDS ORDERED: diphenhydrAMINE 50 MG/ML SDV IVPUSH PRN (18:00)
[2023-04-13] MEDS: Meropenem 500 MG in Sodium Chloride 0.9% 50 ML IV SCH (18:15)
[2023-04-14] MEDS: Dextrose 5%-Lactated Ringers 1,000 ML IV SCH ×3 (00:18→11:45)
[2023-04-14] MEDS: Meropenem 500 MG in Sodium Chloride 0.9% 50 ML IV SCH ×4 (00:20→18:25)
[2023-04-14 05:48] LABS: BASOPHILS ABSOLUTE AUTO 0.03 K/uL (0.00-0.10); BASOPHILS PERCENT AUTO 0.2 % (0.1-1.3); HEMATOCRIT 27.7 % (34.3-46.0); HEMOGLOBIN 9.7 g/dL (11.2-15.5); IMMATURE GRAN ABSOLUTE AUTO 0.12 K/uL (0.00-0.23); IMMATURE GRAN PERCENT AUTO 0.7 % (0.0-0.7); LYMPHOCYTES ABSOLUTE AUTO 1.57 K/uL (0.8-3.3); LYMPHOCYTES PERCENT AUTO 8.9 % (11.4-47.7); MEAN CORPUSCULAR HEMOGLOBIN 36.7 pg (31.6-35.5); MEAN CORPUSCULAR VOLUME 104.9 fL (81.4-99.0); MONOCYTES PERCENT AUTO 7.4 % (3.3-12.6); NEUTROPHILS ABSOLUTE AUTO 14.66 K/uL (1.0-7.6); NEUTROPHILS PERCENT AUTO 82.8 % (40.0-78.1); PLATELET COUNT,PLT 112 K/uL (130-375); RED BLOOD CELL COUNT 2.64 M/uL (3.77-5.24); WHITE BLOOD CELL COUNT,WBC 17.7 K/uL (3.2-11.0)
[2023-04-14 06:06] LABS: A/G RATIO 0.7 (1.2-2.2); ALANINE AMINOTRANSFERASE,ALT 23 U/L (12-78); ALBUMIN 1.9 g/dL (3.4-5.0); ALKALINE PHOSPHATASE 61 U/L (46-116); ASPARTATE AMNIOTRANSFERASE,AST 29 U/L (15-37); BILIRUBIN TOTAL 0.5 mg/dL (0.2-1.0); BLOOD UREA NITROGEN,BUN 3 mg/dL (7-18); CALCIUM 7.4 mg/dL (8.5-10.1); CARBON DIOXIDE,CO2 27 mmol/L (21-32); CHLORIDE,CL 102 mmol/L (100-108); CREATININE 0.6 mg/dL (0.6-1.0); EST CRCL DRUG DOSING (CG) 79.63 mL/min; ESTIMATED GFR 97 mL/min (>60); GLUCOSE RANDOM 197 mg/dL (74-106); MAGNESIUM 1.4 mg/dL (1.8-2.4); PHOSPHORUS 2.2 mg/dL (2.5-4.9); POTASSIUM,K 3.9 mmol/L (3.6-5.2); PROTEIN TOTAL,TP 4.7 g/dL (6.4-8.2); SODIUM,NA 133 mmol/L (140-148)
[2023-04-14 06:14] LABS: ANION GAP 7.9 mmol/L (5.0-14.0)
[2023-04-14] MEDS: Pantoprazole 40 MG Vial IVPUSH SCH (06:15)
[2023-04-14] MEDS ORDERED: Lactated Ringers 500 ML IV ONE (06:41)
[2023-04-14] MEDS ORDERED: Potassium Phosphates 3 mMole/ML 15 ML SDV IV ONE (07:51)
[2023-04-14] MEDS ORDERED: Central Total Parenteral Nutrition Bag SCH (08:00)
[2023-04-14] MEDS: Magnesium Sulfate/Water 2 GM/50 ML BAG IV SCH ×3 (08:33→21:05)
[2023-04-14] MEDS: Potassium Phos in 0.9 % NaCl 15 MMOL in Premix Bag 1 BAG IV SCH ×6 (08:39→14:50)
[2023-04-14] MEDS: Gabapentin 100 MG Cap PO SCH (08:51)
[2023-04-14] MEDS: Nystatin Susp 100,000 Unit/ML 5 ML UD Cup PO SCH ×3 (10:10→21:52)
[2023-04-14] MEDS: Albumin Human 25 GM in Premix Bag 1 BAG IV SCH ×2 (10:12→18:38)
[2023-04-14] MEDS: Cyclobenzaprine 10 MG Tab PO PRN ×2 (13:28→21:52)
[2023-04-14] MEDS ORDERED: Dextrose 5%-Lactated Ringers 1,000 ML IV SCH (16:00)
[2023-04-14] MEDS: 1: AA 5%/Calcium/D15W/Lytes 1,000 ML with MVI, Adult with Vitamin K 10 ML, Zinc/Copper/M IV SCH ×3 (16:19)
[2023-04-15] MEDS: Meropenem 500 MG in Sodium Chloride 0.9% 50 ML IV SCH ×3 (00:14→11:03)
[2023-04-15] MEDS: Magnesium Sulfate/Water 2 GM/50 ML BAG IV SCH ×4 (02:38→21:13)
[2023-04-15] MEDS: 1: AA 5%/Calcium/D15W/Lytes 1,000 ML with MVI, Adult with Vitamin K 10 ML, Zinc/Copper/M IV SCH ×6 (04:10→16:20)
[2023-04-15 04:55] LABS: HEMATOCRIT 23.5 % (34.3-46.0); HEMOGLOBIN 7.9 g/dL (11.2-15.5); MEAN CORPUSCULAR HEMOGLOBIN 36.7 pg (31.6-35.5); MEAN CORPUSCULAR HGB CONC 33.6 g/dL (31.6-35.5); MEAN CORPUSCULAR VOLUME 109.3 fL (81.4-99.0); RED BLOOD CELL COUNT 2.15 M/uL (3.77-5.24); WHITE BLOOD CELL COUNT,WBC 20.5 K/uL (3.2-11.0)
[2023-04-15 05:27] LABS: ALANINE AMINOTRANSFERASE,ALT 21 U/L (12-78); ALBUMIN 2.5 g/dL (3.4-5.0); ALKALINE PHOSPHATASE 46 U/L (46-116); ASPARTATE AMNIOTRANSFERASE,AST 24 U/L (15-37); BILIRUBIN TOTAL 0.4 mg/dL (0.2-1.0); BLOOD UREA NITROGEN,BUN 4 mg/dL (7-18); CALCIUM 7.4 mg/dL (8.5-10.1); CARBON DIOXIDE,CO2 27 mmol/L (21-32); CHLORIDE,CL 104 mmol/L (100-108); CREATININE 0.5 mg/dL (0.6-1.0); EST CRCL DRUG DOSING (CG) 95.55 mL/min; ESTIMATED GFR 101 mL/min (>60); GLUCOSE RANDOM 137 mg/dL (74-106); MAGNESIUM 2.8 mg/dL (1.8-2.4); POTASSIUM,K 3.9 mmol/L (3.6-5.2); PRO B-TYPE NATRIUR PEPT,BNPPRO 632 pg/mL (5-125); PROTEIN TOTAL,TP 4.5 g/dL (6.4-8.2); SODIUM,NA 137 mmol/L (140-148)
[2023-04-15 05:28] LABS: A/G RATIO 1.3 (1.2-2.2); ANION GAP 9.9 mmol/L (5.0-14.0)
[2023-04-15] MEDS: Pantoprazole 40 MG Vial IVPUSH SCH (05:34)
[2023-04-15] MEDS: Nystatin Susp 100,000 Unit/ML 5 ML UD Cup PO SCH ×4 (05:34→21:13)
[2023-04-15] MEDS: Cyclobenzaprine 10 MG Tab PO PRN ×2 (06:03→14:13)
[2023-04-15] MEDS ORDERED: Central Total Parenteral Nutrition Bag SCH (07:45)
[2023-04-15] MEDS: hydrOXYzine HCl 25 MG Tab PO PRN (08:37)
[2023-04-15] MEDS ORDERED: Cyanocobalamin (Vitamin B12) 1,000 MCG/ML SDV IM ONE (09:00)
[2023-04-15] MEDS: Albumin Human 25 GM in Premix Bag 1 BAG IV SCH ×2 (09:47→17:57)
[2023-04-15] MEDS: Gabapentin 100 MG Cap PO SCH (09:47)
[2023-04-15] MEDS: Dextrose 5%-Lactated Ringers 1,000 ML IV SCH (13:12)
[2023-04-15] MEDS ORDERED: Acetaminophen 1,000 MG in Premix Bag 1 BAG IV ONE (18:13)
[2023-04-15] MEDS: fentaNYL/Normal Saline 600 MCG/30 ML PCA Vial IV PRN (21:34)
[2023-04-16] MEDS: Magnesium Sulfate/Water 2 GM/50 ML BAG IV SCH ×4 (02:41→20:26)
[2023-04-16] MEDS: 1: AA 5%/Calcium/D15W/Lytes 1,000 ML with MVI, Adult with Vitamin K 10 ML, Zinc/Copper/M IV SCH ×6 (04:36→17:30)
[2023-04-16] MEDS: Nystatin Susp 100,000 Unit/ML 5 ML UD Cup PO SCH ×5 (05:16→21:10)
[2023-04-16] MEDS: Pantoprazole 40 MG Vial IVPUSH SCH (05:16)
[2023-04-16 05:32] LABS: HEMATOCRIT 24.6 % (34.3-46.0); HEMOGLOBIN 8.4 g/dL (11.2-15.5); MEAN CORPUSCULAR HEMOGLOBIN 37.2 pg (31.6-35.5); MEAN CORPUSCULAR HGB CONC 34.1 g/dL (31.6-35.5); MEAN CORPUSCULAR VOLUME 108.8 fL (81.4-99.0); RED BLOOD CELL COUNT 2.26 M/uL (3.77-5.24); WHITE BLOOD CELL COUNT,WBC 16.5 K/uL (3.2-11.0)
[2023-04-16 06:07] LABS: A/G RATIO 1.4 (1.2-2.2); ALANINE AMINOTRANSFERASE,ALT 32 U/L (12-78); ALBUMIN 2.7 g/dL (3.4-5.0); ALKALINE PHOSPHATASE 57 U/L (46-116); ANION GAP 10.1 mmol/L (5.0-14.0); ASPARTATE AMNIOTRANSFERASE,AST 36 U/L (15-37); BILIRUBIN TOTAL 0.6 mg/dL (0.2-1.0); BLOOD UREA NITROGEN,BUN 11 mg/dL (7-18); CARBON DIOXIDE,CO2 28 mmol/L (21-32); CHLORIDE,CL 102 mmol/L (100-108); CREATININE 0.5 mg/dL (0.6-1.0); ESTIMATED GFR 101 mL/min (>60); GLUCOSE RANDOM 116 mg/dL (74-106); PHOSPHORUS 2.7 mg/dL (2.5-4.9); POTASSIUM,K 4.1 mmol/L (3.6-5.2); PRO B-TYPE NATRIUR PEPT,BNPPRO 414 pg/mL (5-125); PROTEIN TOTAL,TP 4.7 g/dL (6.4-8.2); SODIUM,NA 136 mmol/L (140-148)
[2023-04-16] MEDS ORDERED: Central Total Parenteral Nutrition Bag SCH (08:00)
[2023-04-16] MEDS: Gabapentin 100 MG Cap PO SCH (08:43)
[2023-04-16] MEDS: Albumin Human 25 GM in Premix Bag 1 BAG IV SCH ×2 (09:31→17:30)
[2023-04-16] MEDS: Docusate Sodium 100 MG Cap PO SCH ×2 (09:31→20:26)
[2023-04-16] MEDS: Bisacodyl 5 MG Tab PO SCH ×2 (09:31→20:26)
[2023-04-16] MEDS ORDERED: Acetaminophen 1,000 MG in Premix Bag 1 BAG IV PRN (11:53)
[2023-04-16] MEDS ORDERED: Acetaminophen 1,000 MG in Premix Bag 1 BAG IV ONE (12:15)
[2023-04-17] MEDS: Magnesium Sulfate/Water 2 GM/50 ML BAG IV SCH (02:11)
[2023-04-17 04:37] LABS: HEMATOCRIT 23.5 % (34.3-46.0); HEMOGLOBIN 7.9 g/dL (11.2-15.5); MEAN CORPUSCULAR HEMOGLOBIN 36.7 pg (31.6-35.5); MEAN CORPUSCULAR HGB CONC 33.6 g/dL (31.6-35.5); MEAN CORPUSCULAR VOLUME 109.3 fL (81.4-99.0); RED BLOOD CELL COUNT 2.15 M/uL (3.77-5.24); WHITE BLOOD CELL COUNT,WBC 14.3 K/uL (3.2-11.0)
[2023-04-17] MEDS: 1: AA 5%/Calcium/D15W/Lytes 1,000 ML with MVI, Adult with Vitamin K 10 ML, Zinc/Copper/M IV SCH ×6 (04:59→17:59)
[2023-04-17] MEDS: Pantoprazole 40 MG Vial IVPUSH SCH (05:03)
[2023-04-17] MEDS: Nystatin Susp 100,000 Unit/ML 5 ML UD Cup PO SCH ×4 (05:03→21:14)
[2023-04-17 05:05] LABS: A/G RATIO 1.4 (1.2-2.2); ALANINE AMINOTRANSFERASE,ALT 42 U/L (12-78); ALBUMIN 2.7 g/dL (3.4-5.0); ALKALINE PHOSPHATASE 65 U/L (46-116); ASPARTATE AMNIOTRANSFERASE,AST 42 U/L (15-37); BILIRUBIN TOTAL 0.7 mg/dL (0.2-1.0); BLOOD UREA NITROGEN,BUN 15 mg/dL (7-18); CARBON DIOXIDE,CO2 25 mmol/L (21-32); CHLORIDE,CL 100 mmol/L (100-108); CREATININE 0.4 mg/dL (0.6-1.0); EST CRCL DRUG DOSING (CG) 119.25 mL/min; ESTIMATED GFR 107 mL/min (>60); GLUCOSE RANDOM 123 mg/dL (74-106); MAGNESIUM 3.3 mg/dL (1.8-2.4); PHOSPHORUS 2.8 mg/dL (2.5-4.9); POTASSIUM,K 4.1 mmol/L (3.6-5.2); PRO B-TYPE NATRIUR PEPT,BNPPRO 223 pg/mL (5-125); PROTEIN TOTAL,TP 4.6 g/dL (6.4-8.2); SODIUM,NA 132 mmol/L (140-148)
[2023-04-17 05:17] LABS: ANION GAP 11.1 mmol/L (5.0-14.0)
[2023-04-17] MEDS: Docusate Sodium 100 MG Cap PO SCH ×2 (09:15→21:14)
[2023-04-17] MEDS: Bisacodyl 5 MG Tab PO SCH ×2 (09:15→21:14)
[2023-04-17] MEDS: Gabapentin 100 MG Cap PO SCH (09:15)
[2023-04-17] MEDS: Albumin Human 25 GM in Premix Bag 1 BAG IV SCH ×2 (09:44→17:59)
[2023-04-18 04:29] LABS: HEMATOCRIT 26.6 % (34.3-46.0); HEMOGLOBIN 9.2 g/dL (11.2-15.5); MEAN CORPUSCULAR HEMOGLOBIN 35.5 pg (31.6-35.5); MEAN CORPUSCULAR HGB CONC 34.6 g/dL (31.6-35.5); MEAN CORPUSCULAR VOLUME 102.7 fL (81.4-99.0); RED BLOOD CELL COUNT 2.59 M/uL (3.77-5.24); WHITE BLOOD CELL COUNT,WBC 14.6 K/uL (3.2-11.0)
[2023-04-18 04:58] LABS: A/G RATIO 1.6 (1.2-2.2); ALANINE AMINOTRANSFERASE,ALT 42 U/L (12-78); ALKALINE PHOSPHATASE 80 U/L (46-116); ASPARTATE AMNIOTRANSFERASE,AST 50 U/L (15-37); BILIRUBIN TOTAL 1.6 mg/dL (0.2-1.0); BLOOD UREA NITROGEN,BUN 16 mg/dL (7-18); CALCIUM 7.7 mg/dL (8.5-10.1); CARBON DIOXIDE,CO2 26 mmol/L (21-32); CHLORIDE,CL 102 mmol/L (100-108); CREATININE 0.4 mg/dL (0.6-1.0); EST CRCL DRUG DOSING (CG) 119.25 mL/min; ESTIMATED GFR 107 mL/min (>60); GLUCOSE RANDOM 122 mg/dL (74-106); PHOSPHORUS 2.6 mg/dL (2.5-4.9); POTASSIUM,K 4.2 mmol/L (3.6-5.2); PRO B-TYPE NATRIUR PEPT,BNPPRO 244 pg/mL (5-125); PROTEIN TOTAL,TP 4.9 g/dL (6.4-8.2); SODIUM,NA 133 mmol/L (140-148)
[2023-04-18 05:07] LABS: ANION GAP 9.2 mmol/L (5.0-14.0)
[2023-04-18] MEDS: hydrOXYzine HCl 25 MG Tab PO PRN (05:07)
[2023-04-18] MEDS: Nystatin Susp 100,000 Unit/ML 5 ML UD Cup PO SCH ×4 (05:10→21:42)
[2023-04-18] MEDS: 1: AA 5%/Calcium/D15W/Lytes 1,000 ML with MVI, Adult with Vitamin K 10 ML, Zinc/Copper/M IV SCH ×3 (05:13)
[2023-04-18] MEDS: Docusate Sodium 100 MG Cap PO SCH ×3 (07:06→20:34)
[2023-04-18] MEDS: Bisacodyl 5 MG Tab PO SCH ×3 (07:06→20:34)
[2023-04-18] MEDS: Pantoprazole 40 MG Tab.CR PO SCH (07:06)
[2023-04-18] MEDS: Gabapentin 100 MG Cap PO SCH ×2 (07:06→08:12)
[2023-04-18] MEDS ORDERED: Furosemide 20 MG/2 ML VIAL IVPUSH ONE (10:00)
[2023-04-18] MEDS: Dextrose 5%-Lactated Ringers 1,000 ML IV SCH (14:16)
[2023-04-18] MEDS ORDERED: 1: AA 5%/Calcium/D15W/Lytes 1,000 ML with MVI, Adult with Vitamin K 10 ML, Zinc/Copper/M IV SCH ×3 (20:30)
[2023-04-19 04:30] LABS: HEMATOCRIT 28.1 % (34.3-46.0); HEMOGLOBIN 9.6 g/dL (11.2-15.5); MEAN CORPUSCULAR HEMOGLOBIN 35.2 pg (31.6-35.5); MEAN CORPUSCULAR HGB CONC 34.2 g/dL (31.6-35.5); MEAN CORPUSCULAR VOLUME 102.9 fL (81.4-99.0); RED BLOOD CELL COUNT 2.73 M/uL (3.77-5.24); WHITE BLOOD CELL COUNT,WBC 17.6 K/uL (3.2-11.0)
[2023-04-19 04:48] LABS: A/G RATIO 1.2 (1.2-2.2); ALANINE AMINOTRANSFERASE,ALT 47 U/L (12-78); ALBUMIN 2.6 g/dL (3.4-5.0); ALKALINE PHOSPHATASE 90 U/L (46-116); ASPARTATE AMNIOTRANSFERASE,AST 50 U/L (15-37); BILIRUBIN TOTAL 0.9 mg/dL (0.2-1.0); BLOOD UREA NITROGEN,BUN 20 mg/dL (7-18); CALCIUM 7.6 mg/dL (8.5-10.1); CARBON DIOXIDE,CO2 25 mmol/L (21-32); CHLORIDE,CL 101 mmol/L (100-108); CREATININE 0.4 mg/dL (0.6-1.0); EST CRCL DRUG DOSING (CG) 119.25 mL/min; ESTIMATED GFR 107 mL/min (>60); GLUCOSE RANDOM 112 mg/dL (74-106); MAGNESIUM 1.9 mg/dL (1.8-2.4); PHOSPHORUS 2.7 mg/dL (2.5-4.9); PROTEIN TOTAL,TP 4.8 g/dL (6.4-8.2); SODIUM,NA 132 mmol/L (140-148)
[2023-04-19] MEDS: Nystatin Susp 100,000 Unit/ML 5 ML UD Cup PO SCH (05:47)
[2023-04-19] MEDS ORDERED: oxyCODONE 5 MG Tab PO PRN ×2 (07:47→16:09)
[2023-04-19] MEDS ORDERED: Central Total Parenteral Nutrition Bag SCH (08:00)
[2023-04-19] MEDS: Pantoprazole 40 MG Tab.CR PO SCH (08:07)
[2023-04-19] MEDS: Bisacodyl 5 MG Tab PO SCH ×2 (08:08→20:25)
[2023-04-19] MEDS: Docusate Sodium 100 MG Cap PO SCH ×2 (08:08→20:25)
[2023-04-19] MEDS: Gabapentin 100 MG Cap PO SCH (08:08)
[2023-04-19] MEDS ORDERED: 1: AA 5%/Calcium/D15W/Lytes 1,000 ML with MVI, Adult with Vitamin K 10 ML, Zinc/Copper/M IV SCH ×3 (13:00)
[2023-04-19] MEDS: hydrOXYzine HCl 25 MG Tab PO PRN (14:43)
[2023-04-19] MEDS: Cyclobenzaprine 10 MG Tab PO PRN (15:12)
[2023-04-19] MEDS ORDERED: Acetaminophen 1,000 MG in Premix Bag 1 BAG IV ONE (16:07)
[2023-04-19] MEDS ORDERED: fentaNYL 100 MCG/2 ML SDV IVPUSH ONE (16:07)
[2023-04-19] MEDS: Acetaminophen 325 MG Tab PO SCH (22:25)
[2023-04-20] MEDS: Acetaminophen 325 MG Tab PO SCH ×2 (04:09→09:16)
[2023-04-20 04:12] LABS: HEMATOCRIT 27.8 % (34.3-46.0); HEMOGLOBIN 9.6 g/dL (11.2-15.5); MEAN CORPUSCULAR HEMOGLOBIN 35.7 pg (31.6-35.5); MEAN CORPUSCULAR HGB CONC 34.5 g/dL (31.6-35.5); MEAN CORPUSCULAR VOLUME 103.3 fL (81.4-99.0); RED BLOOD CELL COUNT 2.69 M/uL (3.77-5.24); WHITE BLOOD CELL COUNT,WBC 14.3 K/uL (3.2-11.0)
[2023-04-20 04:42] LABS: ALANINE AMINOTRANSFERASE,ALT 111 U/L (12-78); ALBUMIN 2.5 g/dL (3.4-5.0); ALKALINE PHOSPHATASE 113 U/L (46-116); ASPARTATE AMNIOTRANSFERASE,AST 130 U/L (15-37); BILIRUBIN TOTAL 1.2 mg/dL (0.2-1.0); BLOOD UREA NITROGEN,BUN 21 mg/dL (7-18); CARBON DIOXIDE,CO2 26 mmol/L (21-32); CHLORIDE,CL 101 mmol/L (100-108); CREATININE 0.5 mg/dL (0.6-1.0); ESTIMATED GFR 101 mL/min (>60); GLUCOSE RANDOM 107 mg/dL (74-106); MAGNESIUM 1.8 mg/dL (1.8-2.4); PHOSPHORUS 3.1 mg/dL (2.5-4.9); POTASSIUM,K 4.3 mmol/L (3.6-5.2); PRO B-TYPE NATRIUR PEPT,BNPPRO 60 pg/mL (5-125); PROTEIN TOTAL,TP 5.1 g/dL (6.4-8.2); SODIUM,NA 132 mmol/L (140-148)
[2023-04-20 04:46] LABS: ANION GAP 9.3 mmol/L (5.0-14.0)
[2023-04-20 05:10] VITALS: BP 106/61; PULSE 83
[2023-04-20] MEDS: Docusate Sodium 100 MG Cap PO SCH (09:16)
[2023-04-20] MEDS: Bisacodyl 5 MG Tab PO SCH (09:16)
[2023-04-20] MEDS: Gabapentin 100 MG Cap PO SCH (09:16)
[2023-04-20] MEDS: Pantoprazole 40 MG Tab.CR PO SCH (09:16)
== END 2023-04-20 09:15 | disposition home or self-care (01) | DRG 330 ==
LOC: JP.ED 22:13 → JP.MS 04-08 13:06 → JP.ICU 04-13 16:45 → JP.MS 04-16 07:43
PROVIDERS: ADMIT Surgery; ATTEND Physician Assistant Medical
PROC: 0DB80ZZ Excision of Small Intestine, Open Approach (ICD-10-PCS; principal; 2023-04-13)
PROC: 0D980ZZ Drainage of Small Intestine, Open Approach (ICD-10-PCS; 2023-04-13)
PROC: 07TP0ZZ Resection of Spleen, Open Approach (ICD-10-PCS; 2023-04-13)
PROC: 0DBW0ZZ Excision of Peritoneum, Open Approach (ICD-10-PCS; 2023-04-13)
PROC: 0D9670Z Drainage of Stomach with Drainage Device, Via Natural or Artificial Opening (ICD-10-PCS; 2023-04-13)
PROC: 3E0436Z Introduction of Nutritional Substance into Central Vein, Percutaneous Approach (ICD-10-PCS; 2023-04-13)
PROC: 0FB23ZX Excision of Left Lobe Liver, Percutaneous Approach, Diagnostic (ICD-10-PCS; 2023-04-13)
PROC: 3E0M05Z Introduction of Adhesion Barrier into Peritoneal Cavity, Open Approach (ICD-10-PCS; 2023-04-13)
PROC: 02HV33Z Insertion of Infusion Device into Superior Vena Cava, Percutaneous Approach (ICD-10-PCS; 2023-04-13)
PROC: 30233N1 Transfusion of Nonautologous Red Blood Cells into Peripheral Vein, Percutaneous Approach (ICD-10-PCS; 2023-04-17)
DX: K56.51 Intestinal adhesions [bands], with partial obstruction (principal); C83.30 Diffuse large B-cell lymphoma, unspecified site; D61.818 Other pancytopenia; K76.6 Portal hypertension; K86.1 Other chronic pancreatitis; R18.8 Other ascites; N30.00 Acute cystitis without hematuria; J98.11 Atelectasis; Z94.81 Bone marrow transplant status; K56.609 Unspecified intestinal obstruction, unspecified as to partial versus complete obstruction; E87.6 Hypokalemia; F17.210 Nicotine dependence, cigarettes, uncomplicated; K74.60 Unspecified cirrhosis of liver; R16.1 Splenomegaly, not elsewhere classified; E83.42 Hypomagnesemia; D53.9 Nutritional anemia, unspecified; D69.6 Thrombocytopenia, unspecified; E86.0 Dehydration; R59.0 Localized enlarged lymph nodes; K57.30 Diverticulosis of large intestine without perforation or abscess without bleeding; B96.20 Unspecified Escherichia coli [E. coli] as the cause of diseases classified elsewhere; K76.89 Other specified diseases of liver; Z20.822 Contact with and (suspected) exposure to COVID-19; I10 Essential (primary) hypertension; M06.9 Rheumatoid arthritis, unspecified; Z90.49 Acquired absence of other specified parts of digestive tract; Z98.890 Other specified postprocedural states; Z90.710 Acquired absence of both cervix and uterus; Z68.26 Body mass index [BMI] 26.0-26.9, adult; Z85.3 Personal history of malignant neoplasm of breast; Z86.73 Personal history of transient ischemic attack (TIA), and cerebral infarction without residual deficits; Z90.79 Acquired absence of other genital organ(s); Z90.722 Acquired absence of ovaries, bilateral; Z88.8 Allergy status to other drugs, medicaments and biological substances; E66.9 Obesity, unspecified; Z79.82 Long term (current) use of aspirin; Z79.899 Other long term (current) drug therapy; Z87.442 Personal history of urinary calculi
CPT/HCPCS: 36415; 36430; 71045; 71045-26; 71046; 71046-26; 74018; 74018-26; 74019; 74019-26; 74176; 74177; 80048; 80053; 81001; 82150; 83690; 83735; 83880; 84100; 85025; 85027; 86850; 86900; 86901; 86920; 86922; 87086; 87088; 87186; 88112; 88305; 88307; 88309; 88313; 88341; 88342; 88365; 88377; 96361; 96365; 96366; 96375; 96376; 97163-GP; 97535-GP; 99232; 99285; 99285-25; A9270-GY; C9113; J0131; J0171; J0330; J1100; J1642; J1940; J2020; J2060; J2185; J2250; J2370; J2405; J2543; J2704; J2710; J2795; J3010; J3410; J3411; J3475; J3480; J3490; J7030; J7050; J7120; J7121; P9016; P9047; Q9967; U0002

== ENCOUNTER 2023-05-04 07:04 | Inpatient (IN) | payer MEDICARE, OTHER ==
[2023-05-04] MEDS ORDERED: Sodium Chloride 0.9% 10 ML Syringe FLUSH PRN ×2 (08:11→09:33)
[2023-05-04] MEDS ORDERED: Lactated Ringers 1,000 ML IV SCH (08:15)
[2023-05-04] MEDS ORDERED: Ondansetron 4 MG/2 ML SDV IVPUSH ONE (08:15)
[2023-05-04] MEDS ORDERED: fentaNYL 100 MCG/2 ML SDV IVPUSH ONE ×2 (08:15→11:04)
[2023-05-04 08:33] LABS: HEMATOCRIT 35.1 % (34.3-46.0); HEMOGLOBIN 11.6 g/dL (11.2-15.5); MEAN CORPUSCULAR HEMOGLOBIN 35.4 pg (31.6-35.5); PLATELET COUNT,PLT 253 K/uL (130-375); RED BLOOD CELL COUNT 3.28 M/uL (3.77-5.24); WHITE BLOOD CELL COUNT,WBC 13.6 K/uL (3.2-11.0)
[2023-05-04 08:42] LABS: BAND ABSOLUTE MAN 0.27 K/uL; BAND PERCENT MAN 2 % (5-11); LYMPHOCYTES PERCENT MAN 11 % (24-44); MONOCYTES ABSOLUTE MAN 0.68 K/uL (0.20-0.90); MONOCYTES PERCENT MAN 5 % (2-6); NEUTROPHILS ABSOLUTE MAN 11.15 K/uL (1.0-7.6); SEG NEUTROPHILS PERCENT MAN 82 % (36-66)
[2023-05-04 08:53] LABS: A/G RATIO 0.9 (1.2-2.2); ALANINE AMINOTRANSFERASE,ALT 24 U/L (12-78); ALBUMIN 2.7 g/dL (3.4-5.0); ALKALINE PHOSPHATASE 69 U/L (46-116); ASPARTATE AMNIOTRANSFERASE,AST 23 U/L (15-37); BILIRUBIN TOTAL 0.9 mg/dL (0.2-1.0); BLOOD UREA NITROGEN,BUN 31 mg/dL (7-18); CALCIUM 9.3 mg/dL (8.5-10.1); CARBON DIOXIDE,CO2 18 mmol/L (21-32); CHLORIDE,CL 100 mmol/L (100-108); CREATININE 1.9 mg/dL (0.6-1.0); EST CRCL DRUG DOSING (CG) 25.15 mL/min; ESTIMATED GFR 28 mL/min (>60); GLUCOSE RANDOM 62 mg/dL (74-106); POTASSIUM,K 4.1 mmol/L (3.6-5.2); PROTEIN TOTAL,TP 5.8 g/dL (6.4-8.2); SODIUM,NA 139 mmol/L (140-148)
[2023-05-04 08:54] LABS: ANION GAP 25.1 mmol/L (5.0-14.0)
[2023-05-04] MEDS ORDERED: Piperacillin/Tazobactam 4.5 GM in Sodium Chloride 0.9% 50 ML IV ONE (09:08)
[2023-05-04] MEDS ORDERED: Iopamidol 612 MG/ML 100 ML Bottle IV PRN (09:33)
[2023-05-04] MEDS ORDERED: Piperacillin/Tazobactam/Dext 4.5 GM in Premix Bag 1 BAG IV ONE (09:45)
[2023-05-04] MEDS ORDERED: Sodium Chloride 0.9% 50 ML IV SCH (09:45)
[2023-05-04] MEDS ORDERED: Lactated Ringers 1,000 ML IV ONE ×2 (10:05→11:32)
[2023-05-04] MEDS ORDERED: fentaNYL 100 MCG/2 ML SDV IVPUSH STA (11:03)
[2023-05-04] MEDS ORDERED: diphenhydrAMINE 25 MG Cap PO PRN (11:23)
[2023-05-04] MEDS ORDERED: Naloxone 0.4 MG/ML SDV IVPUSH PRN (11:23)
[2023-05-04] MEDS ORDERED: diphenhydrAMINE 50 MG/ML SDV IVPUSH PRN (11:23)
[2023-05-04] MEDS ORDERED: Ondansetron 4 MG/2 ML SDV IVPUSH PRN (11:23)
[2023-05-04] MEDS ORDERED: fentaNYL/Normal Saline 600 MCG/30 ML PCA Vial IV SCH ×2 (11:30→11:49)
[2023-05-04] MEDS ORDERED: Linezolid 600 MG in Premix Bag 1 BAG IV SCH (11:45)
[2023-05-04 12:18] LABS: APPEARANCE,URINE CLOUDY (CLEAR); BILIRUBIN,URINE NEGATIVE (NEGATIVE); COLOR,URINE YELLOW (YELLOW); GLUCOSE,URINE NEGATIVE (NEGATIVE); KETONES,URINE TRACE mg/dL (NEGATIVE); LEUKOCYTE ESTERASE,URINE NEGATIVE (NEGATIVE); NITRITE,URINE NEGATIVE (NEGATIVE); OCCULT BLOOD,URINE NEGATIVE (NEGATIVE); PROTEIN,URINE 100 mg/dL (NEGATIVE); UROBILINOGEN,URINE 0.2 EU/dL (0.2-1.0)
[2023-05-04 12:26] LABS: AMORPHOUS SEDIMENT,URINE NOT SEEN; BACTERIA,URINE MODERATE; EPITHELIAL CELLS,URINE FEW; MUCUS,URINE MODERATE; RBC,URINE 0-5 (0-5)
[2023-05-04] MEDS ORDERED: Acetaminophen 1,000 MG in Premix Bag 1 BAG IV ONE (13:28)
[2023-05-04] MEDS ORDERED: Ketorolac 15 MG/ML SDV IVPUSH ONE (15:28)
[2023-05-04] MEDS ORDERED: Ondansetron 4 MG/2 ML SDV IV PRN (16:04)
[2023-05-04] MEDS ORDERED: Sennosides/Docusate Sodium 50-8.6 MG Tab PO PRN (16:04)
[2023-05-04] MEDS ORDERED: Magnesium Hydroxide 400 MG/5 ML Susp 30 ML Cup PO PRN (16:04)
[2023-05-04] MEDS ORDERED: Ondansetron 4 MG Tab.DIS PO PRN (16:04)
[2023-05-04] MEDS ORDERED: Acetaminophen 325 MG Tab PO PRN (16:04)
[2023-05-04] MEDS: Sodium Chloride 0.9% 1,000 ML IV SCH (16:21)
[2023-05-04] MEDS ORDERED: Pantoprazole 40 MG Vial IV SCH (17:00)
[2023-05-04] MEDS: Meropenem 1 GM in Sodium Chloride 0.9% 100 ML IV SCH (17:23)
[2023-05-04] MEDS: Lactobacillus Rhamnosus GG (Probiotic) Cap PO SCH (20:26)
[2023-05-04] MEDS ORDERED: hydrOXYzine HCL 100 MG/2 ML SDV IM ONE (20:50)
[2023-05-04] MEDS ORDERED: Lactated Ringers 500 ML IV ONE (20:50)
[2023-05-04] MEDS ORDERED: hydrOXYzine HCL 100 MG/2 ML SDV ONE (20:52)
[2023-05-04] MEDS ORDERED: Morphine 4 MG/ML Syringe ONE (23:17)
[2023-05-04] MEDS: Morphine 4 MG/ML Syringe IVPUSH PRN (23:21)
[2023-05-05] MEDS ORDERED: Linezolid 600 MG in Premix Bag 1 BAG IV SCH (00:05)
[2023-05-05] MEDS ORDERED: Lactated Ringers 500 ML IV ONE (01:29)
[2023-05-05] MEDS: Morphine 4 MG/ML Syringe IVPUSH PRN ×3 (01:33→13:28)
[2023-05-05] MEDS: Sodium Chloride 0.9% 1,000 ML IV SCH (04:08)
[2023-05-05] MEDS: Meropenem 1 GM in Sodium Chloride 0.9% 100 ML IV SCH (05:20)
[2023-05-05 05:36] LABS: HEMATOCRIT 31.4 % (34.3-46.0); HEMOGLOBIN 9.8 g/dL (11.2-15.5); MEAN CORPUSCULAR HEMOGLOBIN 35.3 pg (31.6-35.5); MEAN CORPUSCULAR HGB CONC 31.2 g/dL (31.6-35.5); MEAN CORPUSCULAR VOLUME 112.9 fL (81.4-99.0); RED BLOOD CELL COUNT 2.78 M/uL (3.77-5.24); WHITE BLOOD CELL COUNT,WBC 22.3 K/uL (3.2-11.0)
[2023-05-05 05:58] LABS: A/G RATIO 0.8 (1.2-2.2); ALANINE AMINOTRANSFERASE,ALT 36 U/L (12-78); ALBUMIN 2.4 g/dL (3.4-5.0); ALKALINE PHOSPHATASE 55 U/L (46-116); ASPARTATE AMNIOTRANSFERASE,AST 71 U/L (15-37); BILIRUBIN TOTAL 0.7 mg/dL (0.2-1.0); BLOOD UREA NITROGEN,BUN 38 mg/dL (7-18); CALCIUM 8.3 mg/dL (8.5-10.1); CHLORIDE,CL 98 mmol/L (100-108); EST CRCL DRUG DOSING (CG) 23.85 mL/min; ESTIMATED GFR 27 mL/min (>60); LACTATE DEHYDROGENASE,LDH 456 U/L (82-234); MAGNESIUM 1.7 mg/dL (1.8-2.4); POTASSIUM,K 5.1 mmol/L (3.6-5.2); PROTEIN TOTAL,TP 5.3 g/dL (6.4-8.2); SODIUM,NA 135 mmol/L (140-148)
[2023-05-05 06:00] LABS: ANION GAP 28.1 mmol/L (5.0-14.0); CARBON DIOXIDE,CO2 14 mmol/L (21-32)
[2023-05-05 06:01] LABS: GLUCOSE RANDOM 23 mg/dL (74-106)
[2023-05-05] MEDS ORDERED: 50% Dextrose in Water 50 ML Syringe ONE (06:02)
[2023-05-05] MEDS ORDERED: 50% Dextrose in Water 50 ML Syringe IVPUSH ONE (06:08)
[2023-05-05] MEDS ORDERED: Dextrose 5%-Lactated Ringers 1,000 ML IV SCH (06:15)
[2023-05-05 06:20] VITALS: PULSE 102
[2023-05-05 09:13] LABS: BODY FLUID TYPE PERITONEAL FLUID
[2023-05-05 09:13] LABS: BODY FLUID TYPE PERITONEAL FLUID
[2023-05-05 09:25] LABS: LACTATE DEHYDROGENASE,BODY FL 899 IU/L
[2023-05-05 09:27] LABS: BODY FLUID TYPE PERITONEAL FLUID; PH,BODY FLUID 7.5
[2023-05-05] MEDS: Aspirin 81 MG Tab.EC PO SCH (09:51)
[2023-05-05] MEDS: Lactobacillus Rhamnosus GG (Probiotic) Cap PO SCH ×2 (09:51→20:29)
[2023-05-05] MEDS: Gabapentin 100 MG Cap PO SCH (09:51)
[2023-05-05 10:10] LABS: GLUCOSE,BODY FLUID 0 mg/dL; LIPASE,BODY FLUID 524 U/L
[2023-05-05 10:10] LABS: BODY FLUID TYPE PERITONEAL FLUID
[2023-05-05 10:11] LABS: ALBUMIN,BODY FLUID 0.7
[2023-05-05 10:12] LABS: AMYLASE BODY FLUID TYPE PERITONEAL FLUID; AMYLASE,BODY FLUID 1153 U/L
[2023-05-05 10:13] LABS: PROTEIN,BODY FLUID < 2 g/dL
[2023-05-05 10:13] LABS: TRIGLYCERIDES,BODY FLUID < 15 mg/dL
[2023-05-05 10:23] LABS: BODY FLUID TYPE PERITONEAL FLUID; MONONUCLEAR, BODY FLUID 19 %; POLYMORPHONUCLEAR, BODY FLUID 81 %; RBC,BODY FLUID 1000 /ul; WBC BODY FLUID 12400 /ul
[2023-05-05 12:02] VITALS: BP 83/41
[2023-05-05] MEDS: LORazepam 2 MG/ML SDV IVPUSH PRN (13:59)
[2023-05-05] MEDS: Morphine 10 MG/0.5 ML Oral Syringe PO PRN (18:03)
[2023-05-06] MEDS: Morphine 10 MG/0.5 ML Oral Syringe PO PRN ×3 (04:38→09:04)
[2023-05-06] MEDS: LORazepam 2 MG/ML SDV IVPUSH PRN ×2 (05:18→09:35)
[2023-05-06] MEDS: Aspirin 81 MG Tab.EC PO SCH (08:45)
[2023-05-06] MEDS: Lactobacillus Rhamnosus GG (Probiotic) Cap PO SCH (08:45)
[2023-05-06] MEDS: Gabapentin 100 MG Cap PO SCH (08:45)
== END 2023-05-06 09:55 | disposition expired | DRG 871 ==
LOC: JP.ED 07:04 → JP.ICU 15:30
PROVIDERS: ADMIT Internal Medicine; ATTEND Internal Medicine
PROC: 3E03329 Introduction of Other Anti-infective into Peripheral Vein, Percutaneous Approach (ICD-10-PCS; principal; 2023-05-04)
PROC: 0W9G3ZZ Drainage of Peritoneal Cavity, Percutaneous Approach (ICD-10-PCS; 2023-05-04)
DX: A41.9 Sepsis, unspecified organism (principal); K65.9 Peritonitis, unspecified; R65.21 Severe sepsis with septic shock; N17.9 Acute kidney failure, unspecified; R18.8 Other ascites; C83.38 Diffuse large B-cell lymphoma, lymph nodes of multiple sites; Z94.84 Stem cells transplant status; E87.20 Acidosis, unspecified; Z66 Do not resuscitate; I10 Essential (primary) hypertension; Z85.72 Personal history of non-Hodgkin lymphomas; E66.9 Obesity, unspecified; F17.210 Nicotine dependence, cigarettes, uncomplicated; M06.9 Rheumatoid arthritis, unspecified; Z20.822 Contact with and (suspected) exposure to COVID-19; Z97.3 Presence of spectacles and contact lenses; Z90.49 Acquired absence of other specified parts of digestive tract; Z90.710 Acquired absence of both cervix and uterus; Z98.890 Other specified postprocedural states; Z90.721 Acquired absence of ovaries, unilateral; Z87.442 Personal history of urinary calculi; Z87.440 Personal history of urinary (tract) infections; Z90.10 Acquired absence of unspecified breast and nipple; Z68.25 Body mass index [BMI] 25.0-25.9, adult; Z79.82 Long term (current) use of aspirin; Z88.5 Allergy status to narcotic agent; Z79.899 Other long term (current) drug therapy; Z90.81 Acquired absence of spleen
CPT/HCPCS: 36415; 74177; 80053; 81001; 83605 ×2; 83690; 84145; 85025; 86140 ×2; 87040 ×2; J0131; J2020; J2405; J2543; J3010 ×3; J3490 ×3; J7120 ×3; Q9967; U0002; 82042; 82106; 82150; 82945; 82947; 83615; 83735; 83986; 84157; 84478; 85027; 87015; 87070; 87077; 87102; 87116; 87186; 87205; 87206; 87220; 88112; 88305; 89050; 99223; 99233; 99238; 99285; A9270-GY; C9113; J1885; J2060; J2185; J2270; J3410; J7030; J7121